=== PATIENT | female | born 1955 | race Caucasian/White ===

== ENCOUNTER 2016-10-27 16:16 | Inpatient (IN) | payer MEDICAID ==
[~2016-10-27] VITALS: Ht 157.5 cm; Wt 83.9 kg
[2016-10-27 17:02] LABS: BASOPHIL % 0.4 % (0-2); PLATELET COUNT 303 x10^3mcL (130-400); RED CELL DISTRIBUTION WIDTH 13.7 % (11.5-14.5)
[2016-10-27 17:10] LABS: CALCIUM 8.4 mg/dL (8.5-10.1); CARBON DIOXIDE 30.3 mmol/L (21-32); CHLORIDE SERUM 98 mmol/L (98-107); CREATININE SERUM 0.8 mg/dL (0.6-1.0); GFR1 > 60 mL/min; GLUCOSE SERUM 257 mg/dL (74-106); POTASSIUM SERUM 3.7 mmol/L (3.5-5.1); SODIUM SERUM 136 mmol/L (136-145)
[2016-10-27 17:15] LABS: ALKALINE PHOSPHATASE 104 U/L (46-116); ALT/SGPT 26 U/L (14-59); AST/SGOT 24 U/L (15-37); BILIRUBIN TOTAL 0.4 mg/dL (0.20-1.00); TOTAL PROTEIN, SERUM 6.9 g/dL (6.4-8.2)
[2016-10-27 17:16] LABS: ALBUMIN 3.1 g/dL (3.4-5.0)
[2016-10-27] MEDS ORDERED: SINGULAIR10 MG PO (17:59)
[2016-10-27] MEDS ORDERED: NEU300 PO (17:59)
[2016-10-27] MEDS ORDERED: ULTRAM50 MG PO (17:59)
[2016-10-27] MEDS ORDERED: DULERA1 AR2 INH (18:00)
[2016-10-27] MEDS ORDERED: LEXAPRO10 MG PO (18:00)
[2016-10-27] MEDS ORDERED: ASPIR 8181 MG PO (18:00)
[2016-10-27] MEDS ORDERED: PROVENTIL0.09 MG/A1 INH (18:00)
[2016-10-27] MEDS ORDERED: PROTONIX40 MG PO (18:00)
[2016-10-27] MEDS ORDERED: HUMALOG100 U/ML SC (18:01)
[2016-10-27] MEDS ORDERED: MULTI-VITAMINS1 TAB PO (18:01)
[2016-10-27] MEDS ORDERED: PRAVACHOL20 MG PO (18:01)
[2016-10-27] MEDS ORDERED: NOR10 PO (18:01)
[2016-10-27] MEDS ORDERED: SPIRIVA18 MC1 INH (18:01)
[2016-10-27] MEDS ORDERED: MIRALAX17 GM/Dose PO (18:02)
[2016-10-27] MEDS ORDERED: LANTUS SOLOS100 U/M1 SQ (18:02)
[2016-10-27] MEDS ORDERED: METFORMIN HCL500 MG PO (18:03)
[2016-10-27 18:28] LABS: CHOLESTEROL/HDL RATIO 4.9
[2016-10-27 18:30] LABS: T3 TOTAL 1.21 ng/mL
[2016-10-27 18:35] LABS: FREE T4 1.16 ng/dL (0.76-1.46); T4(THYROXINE) 8.2 ug/dL (4.7-13.3)
[2016-10-27 18:38] VITALS: BP 141/73
[2016-10-27 19:17] VITALS: BP 134/61
[2016-10-27 21:05] VITALS: BP 132/52
[2016-10-27 22:53] VITALS: BP 142/59
[2016-10-28 05:32] VITALS: BP 122/55
[2016-10-28 06:23] LABS: BASOPHIL % 0.2 % (0-2); PLATELET COUNT 235 x10^3mcL (130-400); RED CELL DISTRIBUTION WIDTH 13.6 % (11.5-14.5)
[2016-10-28 06:35] LABS: CALCIUM 8.2 mg/dL (8.5-10.1); CARBON DIOXIDE 22.1 mmol/L (21-32); CHLORIDE SERUM 105 mmol/L (98-107); CREATININE SERUM 0.7 mg/dL (0.6-1.0); GFR1 > 60 mL/min; GLUCOSE SERUM 244 mg/dL (74-106); MAGNESIUM 2.4 mg/dL (1.8-2.4); PHOSPHOROUS 4.1 mg/dL (2.5-4.9); POTASSIUM SERUM 4.7 mmol/L (3.5-5.1); SODIUM SERUM 140 mmol/L (136-145)
[2016-10-28 08:20] VITALS: BP 122/55
[2016-10-28 14:33] VITALS: BP 133/59
[2016-10-28 17:13] VITALS: BP 132/60
[2016-10-28 17:28] LABS: UA SPECIFIC GRAVITY <=1.005 (1.005-1.035); microscopic required? YES; urine erythrocyte NEGATIVE (NEGATIVE)
[2016-10-28 17:35] LABS: AMPHETAMINE QUAL UR NONE DETECTED (NEG <=1000)
[2016-10-28 20:58] VITALS: BP 109/53
[2016-10-29 05:47] VITALS: BP 126/51
[2016-10-29 06:45] LABS: BASOPHIL % 0.3 % (0-2); PLATELET COUNT 251 x10^3mcL (130-400); RED CELL DISTRIBUTION WIDTH 13.9 % (11.5-14.5)
[2016-10-29 07:13] LABS: CALCIUM 8.2 mg/dL (8.5-10.1); CARBON DIOXIDE 24.8 mmol/L (21-32); CHLORIDE SERUM 105 mmol/L (98-107); CREATININE SERUM 0.9 mg/dL (0.6-1.0); GFR1 > 60 mL/min; GLUCOSE SERUM 256 mg/dL (74-106); PHOSPHOROUS 2.5 mg/dL (2.5-4.9); POTASSIUM SERUM 4.2 mmol/L (3.5-5.1); SODIUM SERUM 140 mmol/L (136-145)
[2016-10-29 09:35] VITALS: BP 108/49
[2016-10-29 10:14] VITALS: Ht 157.5 cm; Wt 83.9 kg
[2016-10-29] MEDS ORDERED: PRAVACHOL20 MG PO (13:03)
[2016-10-29] MEDS ORDERED: LEVAQUIN750 MG PO (13:07)
[2016-10-29 13:14] VITALS: BP 126/45
[2016-10-29] MEDS ORDERED: GLU5 PO (13:16)
[2016-10-29] MEDS ORDERED: METFORMIN HCL1000 MG PO (13:16)
[2016-10-29] MEDS ORDERED: PROTONIX40 MG/Pac1 PO (13:16)
[2016-10-29] MEDS ORDERED: LAC PO (13:17)
[2016-10-29 13:20] VITALS: BP 126/45
[2016-10-29 14:41] VITALS: BP 126/45
[2016-10-29] MEDS ORDERED: PERCOCET1 TA5 PO (15:57)
== END 2016-10-29 16:21 | disposition home or self-care (01) | DRG 133 ==
LOC: ED 16:16 → DU 17:41
PROVIDERS: Emergency Medicine; Family Medicine; ADMIT Family Medicine
DX: J96.01 Acute respiratory failure with hypoxia (principal); E11.51 Type 2 diabetes mellitus with diabetic peripheral angiopathy without gangrene; E44.0 Moderate protein-calorie malnutrition; E11.65 Type 2 diabetes mellitus with hyperglycemia; N39.0 Urinary tract infection, site not specified; J44.1 Chronic obstructive pulmonary disease with (acute) exacerbation; E78.5 Hyperlipidemia, unspecified; D64.9 Anemia, unspecified; I10 Essential (primary) hypertension; M19.90 Unspecified osteoarthritis, unspecified site; Z68.33 Body mass index [BMI] 33.0-33.9, adult; Z86.73 Personal history of transient ischemic attack (TIA), and cerebral infarction without residual deficits; Z87.891 Personal history of nicotine dependence; Z79.82 Long term (current) use of aspirin; Z79.84 Long term (current) use of oral hypoglycemic drugs; Z79.4 Long term (current) use of insulin; Z80.3 Family history of malignant neoplasm of breast
CPT/HCPCS: 36600; 80307; 82962; 83880; 84439; 94150; J1100; J1170; J1200; J1644; J1815; J1885; J1956; J2060; J2270; J2405; J2920; J2930; J7030; J7040; J7620; J7626; J7644; Q0092

== ENCOUNTER 2016-11-26 15:21 | Inpatient (IN) | payer MEDICAID ==
[~2016-11-26] VITALS: Ht 160 cm; Wt 80.9 kg
[~2016-11-26 15:21] MED LIST: ASPIR 8181 MG PO; DULERA1 AR2 INH; GLU5 PO; HUMALOG100 U/ML SC; LAC PO; LANTUS SOLOS100 U/M1 SQ; LEVAQUIN750 MG PO; LEXAPRO10 MG PO; METFORMIN HCL1000 MG PO; METFORMIN HCL500 MG PO; MIRALAX17 GM/Dose PO; MULTI-VITAMINS1 TAB PO; NEU300 PO; NOR10 PO; PERCOCET1 TA5 PO; PRAVACHOL20 MG PO; PROTONIX40 MG PO; PROTONIX40 MG/Pac1 PO; PROVENTIL0.09 MG/A1 INH; SINGULAIR10 MG PO; SPIRIVA18 MC1 INH; ULTRAM50 MG PO
--- NOTE | 2016-11-26 15:33 | NUR ---
61Y/O FEMALE PRESENTS TO THE ED WITH SHORTNESS OF BREATH, COUGH, AND WHEEZING X 3 DAYS. UPPER BACK PAIN IS ALSO REPORTED WHEN COUGHING. 3 HOME BREATHING REATMENTS WERE COMPLETED CHICK GRADER WITH NO IMPROVEMENT. PT APPEARS UNCOMFORTABLE DUE TO DYPNEA AND AUDIBLE WHEEZES ARE NOTED. PRIMARY RN LAYA MADE AWARE. PT PLACED ON CM. PENDING MSE
--- NOTE | 2016-11-26 16:03 | NUR ---
RT AT BEDSIDE
[2016-11-26 16:34] LABS: BASOPHIL % 0.6 % (0-2); PLATELET COUNT 332 x10^3mcL (130-400); RED CELL DISTRIBUTION WIDTH 13.9 % (11.5-14.5)
[2016-11-26 16:43] LABS: CALCIUM 8.5 mg/dL (8.5-10.1); CARBON DIOXIDE 27.7 mmol/L (21-32); CHLORIDE SERUM 102 mmol/L (98-107); CREATININE SERUM 0.8 mg/dL (0.6-1.0); GFR1 > 60 mL/min; GLUCOSE SERUM 211 mg/dL (74-106); POTASSIUM SERUM 3.8 mmol/L (3.5-5.1); SODIUM SERUM 137 mmol/L (136-145)
[2016-11-26 16:48] LABS: ALKALINE PHOSPHATASE 104 U/L (46-116); ALT/SGPT 26 U/L (14-59); AST/SGOT 34 U/L (15-37); BILIRUBIN TOTAL 0.6 mg/dL (0.20-1.00); MAGNESIUM 1.6 mg/dL (1.8-2.4); TOTAL PROTEIN, SERUM 6.8 g/dL (6.4-8.2)
--- NOTE | 2016-11-26 17:07 | NUR ---
PT REPORTS THAT HER SOB IS MUCH BETTER. PT DOES COMPLAINT OF RIGHT LOWER BACK PAIN.
--- NOTE | 2016-11-26 18:18 | NUR ---
REPORT CALLED TO KAILYN MOSS TO ASSUME CARE FOR THIS PT POST TRANSFER FROM ED TO TELE UNIT
[2016-11-26 18:51] LABS: microscopic required? YES; urine erythrocyte NEGATIVE (NEGATIVE)
--- NOTE | 2016-11-26 18:58 | NUR ---
PT REPORTS THAT HE BACK PAIN HAS DECREASED FROM A 7/10 TO A 2/10 ON THE VERBAL NUMERIC PAIN SCALE. PT SHOWS NO OBJECTIVE SIGNS OF DYSPNEA OR PAIN AT THIS TIME.
[2016-11-26 19:19] LABS: FREE THYROXINE INDEX 2.9 ug/dL (1.4-4.5); T4(THYROXINE) 8.3 ug/dL (4.7-13.3)
[2016-11-26 19:24] LABS: FREE T4 0.9 ng/dL (0.76-1.46)
[2016-11-26 19:26] LABS: CHOLESTEROL/HDL RATIO 4.5; PHOSPHOROUS 3.5 mg/dL (2.5-4.9)
[2016-11-26] MEDS ORDERED: PANTOPRAZOLE SO40 M1 PO (19:30)
[2016-11-26 19:33] VITALS: BP 108/54
--- NOTE | 2016-11-26 19:47 | NUR ---
RECEIVED PATIENT FROM ED VIA GUERNEY, PATIENT WITH O2 VIA NASAL CANNULA AT 2L O2 SAT 97%, DAUGHTER AT BEDSIDE, ORIENTED PATIENT TO ROOMA ND SURROUNDINGS, BED IN LOW POSITION, BED RAILS UP X 2, CALL LIGHT WITHIN REACH, WILL ENDORSE CARE TO ADE AVINA
--- NOTE | 2016-11-26 19:55 | NUR ---
RECEIVED PT FROM RAJESH AVINA. PT IS ALERT/ORIENTED X4. NO C/O SOB. LUNGS SOUND CONGESTED THROUGHOUT. PT DAUGHTER IN ROOM. PT C/O BACK PAIN. WILL MEDICATE PER MD PRN ORDER. WILL CONTINUE TO MONITOR.
[2016-11-26 20:16] VITALS: BP 117/50
--- NOTE | 2016-11-26 20:45 | NUR ---
OFFERED PT NORCO FOR THE PAIN. PT REFUSED; STATED "DOES NOT WORK". BP; 108/54, INFORMED PT BP TOO LOW TO ADMINISTER MORPHINE SULFATE. PT STATED SHE WILL WAIT. WILL CONTINUE TO MONITOR.
[2016-11-26 20:53] LABS: T3 TOTAL 1.33 ng/mL
[2016-11-26 21:36] VITALS: BP 117/50
--- NOTE | 2016-11-26 23:21 | NUR ---
INCREASED IVF OF NS TO 90ML/HR
[2016-11-27 00:01] VITALS: Ht 160 cm; Wt 80.9 kg
--- NOTE | 2016-11-27 04:00 | NUR ---
PT SLEEPING, TORADOL NOT ADMINISTERED DUE TO PT SLEEPING. WILL CONTINUE TO MONITOR.
[2016-11-27 06:33] VITALS: BP 128/49
--- NOTE | 2016-11-27 06:35 | NUR ---
PT AWAKE. BREATHING IS EVEN AND UNLABORED. NO C/O SOB. WILL CONTINUE TO MONITOR.
[2016-11-27 06:42] LABS: BASOPHIL % 0.4 % (0-2); PLATELET COUNT 267 x10^3mcL (130-400); RED CELL DISTRIBUTION WIDTH 13.8 % (11.5-14.5)
[2016-11-27 07:08] LABS: CALCIUM 8.5 mg/dL (8.5-10.1); CARBON DIOXIDE 24.8 mmol/L (21-32); CHLORIDE SERUM 99 mmol/L (98-107); CREATININE SERUM 0.8 mg/dL (0.6-1.0); GFR1 > 60 mL/min; GLUCOSE SERUM 321 mg/dL (74-106); MAGNESIUM 1.8 mg/dL (1.8-2.4); PHOSPHOROUS 3.3 mg/dL (2.5-4.9); POTASSIUM SERUM 4.9 mmol/L (3.5-5.1); SODIUM SERUM 133 mmol/L (136-145)
--- NOTE | 2016-11-27 08:00 | NUR ---
RECIEVED RICARDO ALERT AND ORIENTED TIMES FOUR. SPEAKS ONLY S[place] ND IS COMPLAINING OF PAIN. NOTED PATIENT RECEIVED PAIN MEDICATION EARLIER BUT SHE STATES IT IS NOT EFFECTIVE. THE PATIENT SEEMS TO BE LOCATED IN THE LOWER BACK AND CHRONIC. GAVE 6 MG OF MORPHINE AND EFFECTIVE AT THIS TIME. SHE HAS SOME WHEEZING BILATERAL AND ON HHN ORDERD. SHE HAS NOT BEEN COUGHING. ELVI MCCOY NOTED VITALS AT THIS TIME AT 98.0, 80, 19, 93/39, 57, 94% ON 2 LITERS. PATIENT IS USING A WHEELCHAIR AT HOME AND WITH HISTORY OF CHRONIC BACK PAIN. NOTED ALSO DIABETES, OBESITY, HIGH CHOLESTEROL, ARTHRITIS, COPD AND HERNIATED DISC. PATIENT WITH LABS NOTED OF GLUCOSE AT 314 THIS AM AND 12 UUNITS OF REGULAR GIVEN. PATIENT HAS NTOED LABS OF BACTYERIA SAM THE URINE AND NA AT 133, TRIGLYCERIDES AT 202 AND 02 MEASURE AT 89.6. PATIENT TOLERATED DIET AND IS SPAINISH SPEAKING ONLY.
[2016-11-27 09:15] VITALS: BP 93/39
--- NOTE | 2016-11-27 09:45 | NUR ---
SEEN BY THE INTERNS AND DR DWYER AND PLAN OF CARE DISCUSSED.
[2016-11-27 13:20] VITALS: BP 130/52
--- NOTE | 2016-11-27 13:57 | NUR ---
PATIENT BLOOD SUGAR AT 310 AND GAVE 15 UNITS OF REGULAR ORDERED. PATIENT HAS BEEN WITH SOLUMEDROL AND IS GROSSLY OBESE AND POORLY CONTROLED WITH BLOOD SUGAR. SHE DOES NOT HAVE ANY COMPLAINTS OF HYPERGLYCEMIA AND SHE WILL BE CONTINUED MONITORED INDICAE.D SHE DOES THOUGH HAV WHEEZIN AND SOB ON EXERTION.
[2016-11-27 17:25] VITALS: BP 135/36
--- NOTE | 2016-11-27 18:41 | NUR ---
PATIENT COMPLAINED OF PAIN TO THE IV SITE. ON CLOSER EXAM NOTED THE ARM WAS WITH REDNESS AND NO SIGNS OF INFILTRATE. PATIENT STATES HER ARM IS HOT TO THE TOUCH AND NOTED THE OPPOSBING ARE IS WARM TOO. CHECKED HER CHEST AND THE AXILLARY AND NOTED RASH AND REDNESS. ALSO NOTED REDNESS TO THE BILATERAL THIGH AREA. PATIENT IS REQUESTING PAIN MEDICAION AND STATES SHE IS NAUSEATED. RESTARTED IV AND GAVE MORPINE, ZOFRAN AND HASD ALREADY CALLED FOR MEDICAION FOR THE RASH. BENADRYL ORDERED AND WILL GIVE SOON PROCESSED. WILL CONTINUE TO MONITOR. SEEN BY THE ELECTRICAL WIRER AND ANTIBIOTICS DISCONTINUED INDICATED FOR ALLERGIC REATION. WILL CONTINUE TO MONITOR FOR THE EFFECTIVENESS OF THE MEDICATIONS GIVEN HELD THE TORADOL SHE IS WITH TOO MUCH ON BOARD WITH THE MORPHINE, NEURONTIN, ROBAXIN, ZOFRAN AND NOW BENADRYL.
--- NOTE | 2016-11-27 19:30 | NUR ---
PT ALERT/ORIENTED X4. NO C/O PAIN AT THIS TIME. PT DAUGHTER IN ROOM. PT ASSESSED; SEE NSG FLOWSHEET. SAFETY REINFORCED; SEE EDUCAT SHEET. WILL CONTINUE TO MONITOR. GENERALIZED RASH NOTED ON PT BODY.
--- NOTE | 2016-11-27 20:36 | NUR ---
PT DAUGHTER STATES PT TAKES PERCOCET 10-325 MG 1 TAB Q 6 HRS FOR SEVERE PAIN. INFORMED DR CHAVARRIA OF THE ABOVE. DR CHAVARRIA STATED HE WILL ORDER THE PERCOCET
[2016-11-27 21:21] VITALS: BP 98/55
--- NOTE | 2016-11-27 23:30 | NUR ---
PT SLEEPING. NO DISTRESS NOTED. WILL CONTINUE TO MONITOR.
[2016-11-28] VITALS (7 sets, daily range): BP systolic 95–111; BP diastolic 37–45
--- NOTE | 2016-11-28 02:37 | NUR ---
PT SLEEPING. NO DISTRESS NOTED. BREATHING IS EVEN AND UNLABORED. WILL CONTINUE TO MONITOR.
--- NOTE | 2016-11-28 05:00 | NUR ---
PT SLEPT IN LONG INTERVALS THROUGHOUT THE NIGHT. NO DISTRESS NOTED. NO C/O PAIN. WILL CONTINUE TO MONITOR.
--- NOTE | 2016-11-28 06:05 | NUR ---
PT NOW ALLOWING SCD'S TO BE APPLIED TO BLE
--- NOTE | 2016-11-28 07:45 | NUR ---
PATIENT AOX4, DENIES HEADACHE. GENERALIZED WEAKNESS NOTED WITH > TO LEFT SIDE. TELE [address], DENIES CP. LUNGS CONGESTED WITH EXPIRATORY RHONCHI, PATIENT RECEIVED SITTING UP ON EDGE OF BED AND NOW BACK IN BED SUPINE, BREATHING LABORED UPON EXERTION, O2 NC 4L PLACED BACK ON. PERIPHERAL PULSES PALPABLE, EDEMA NOTED TO BLE'S. BOWEL SOUNDS ACTIVE, DENIES N/V, LAST BM THIS MORNING, DENIES GI DISCOMFORT. C/O PAIN TO EPIGASTRIC AREA AND BACK, TOLERABLE AT THIS TIME. MILD GENERALIZED REDNESS/RASH TO BODY, PATIENT STATES RESOLVING FROM REACTION TO IV ABX GIVEN YESTERDAY. IV ACCESS TO RFA RUNNING NS INFUSING WELL SITE WNL. CALL LIGHT WITHIN REACH.
--- NOTE | 2016-11-28 12:10 | NUR ---
PATIENT TEARY AND C/O SEVERE PAIN TO BACK. BP CHECKED AND CHARTED, 95/37. UNABLE TO GIVE MORPHINE 6MG AT THIS TIME. TORADOL IV SCHEDULED DOSE GIVEN. WILL CONT TO MONITOR EFFECTIVENESS.
--- NOTE | 2016-11-28 12:45 | NUR ---
ROCEPHIN IV ABX FIRST DOSE COMPLETE, NO REDNESS/RASHES OR ITCHING NOTED.
--- NOTE | 2016-11-28 19:10 | NUR ---
PATIENT RECEIVED AWAKE, ALERT, AND ORIENTED X 3. NO RESP DISTRESS NOTED. C/O 10/10 BACK PAIN. WILL MEDICATE PER DOCTOR'S PRN ORDER. C/O NAUSEA, WILL MEDICATE PER DOCTOR'S PRN ORDER. IV SITE TO RIGHT FOREARM, PATENT AND INTACT. IV FLUID INFUSING PER DOCTOR'S ORDER. BED IN LOWEST POSITION. CALL LIGHT WITHIN REACH. WILL CONTINUE TO MONITOR.
--- NOTE | 2016-11-29 05:02 | NUR ---
PATIENT RESTED THROUGHOUT THE NIGHT. NO RESP DISTRESS NOTED. MEDICATED FOR BACK PAIN WITH PERCOCET PO X 1 PER DOCTOR'S PRN ORDER. PAIN MANAGED THROUGHOUT THE NIGHT. ALL NEEDS MET. SAFETY AND COMFORT MEASURES MAINTAINED. BED IN LOWEST POSITION. CALL LIGHT WITHIN REACH. WILL CONTINUE TO MONITOR AND ENDORSE TO NEXT SHIFT NURSE.
[2016-11-29 06:22] VITALS: BP 135/64
--- NOTE | 2016-11-29 07:45 | NUR ---
PATIENT AO, DENIES HEADACHE. DENIES CP. LUNGS DIMINISHED BILAT, O2 SAT 96% ON RA, STATES HAVING SMALL PHLEGM FROM OCCASIONAL PRODUCTIVE COUGH, DENIES FEELING SOB, BREATHING EVEN AND UNLABORED. BOWEL SOUNDS ACTIVE, STATES LAST BM THIS MORNING, DENIES N/V. SKIN INTACT. IV ACCESS TO RFA SITE WNL. DENIES FEELING ANY PAIN/DISCOMFORT AT THIS TIME. CALL LIGHT WITHIN REACH.
[2016-11-29 08:28] VITALS: BP 135/86
[2016-11-29 08:50] LABS: CALCIUM 8.4 mg/dL (8.5-10.1); CHLORIDE SERUM 112 mmol/L (98-107); CREATININE SERUM 0.7 mg/dL (0.6-1.0); GFR1 > 60 mL/min; GLUCOSE SERUM 87 mg/dL (74-106); POTASSIUM SERUM 4.1 mmol/L (3.5-5.1); SODIUM SERUM 147 mmol/L (136-145)
[2016-11-29 09:58] VITALS: BP 120/46
[2016-11-29] MEDS ORDERED: LEVAQUIN750 MG PO (11:19)
[2016-11-29] MEDS ORDERED: LAC PO (11:20)
[2016-11-29] MEDS ORDERED: MEDDP PO (11:20)
[2016-11-29] MEDS ORDERED: TRAMADOL HCL50 MG PO (11:21)
[2016-11-29 11:33] VITALS: BP 120/46
[2016-11-29] MEDS ORDERED: PERCOCET1 TAB PO (11:35)
[2016-11-29] MEDS ORDERED: COLACE100 MG PO (11:35)
--- NOTE | 2016-11-29 12:36 | NUR ---
DISCHARGE INSTRUCTIONS AND PRESCRIPTION GIVEN. PATIENT VERBALIZED UNDERSTANDING. IV DC'D CATH INTACT. ALL CONCERNS/QUESTIONS ANSWERED. NO ACUTE DISTRESS NOTED. WAITING FOR RIDE/DAUGHTER TO PAINT SPRAY INSPECTOR. WILL GO DOWN VIA WHEELCHAIR ACCOMPANIED.
== END 2016-11-29 12:50 | disposition home or self-care (01) | DRG 140 ==
LOC: ED 15:21 → DU 17:26 → MU 11-29 07:23
PROVIDERS: Emergency Medicine; Family Medicine; ADMIT Family Medicine
DX: J44.1 Chronic obstructive pulmonary disease with (acute) exacerbation (principal); J96.01 Acute respiratory failure with hypoxia; E44.0 Moderate protein-calorie malnutrition; D68.69 Other thrombophilia; I42.9 Cardiomyopathy, unspecified; E11.51 Type 2 diabetes mellitus with diabetic peripheral angiopathy without gangrene; E87.1 Hypo-osmolality and hyponatremia; E87.8 Other disorders of electrolyte and fluid balance, not elsewhere classified; E83.42 Hypomagnesemia; I10 Essential (primary) hypertension; D16.21 Benign neoplasm of long bones of right lower limb; E11.65 Type 2 diabetes mellitus with hyperglycemia; M47.896 Other spondylosis, lumbar region; M54.42 Lumbago with sciatica, left side; E78.5 Hyperlipidemia, unspecified; Z99.3 Dependence on wheelchair; Z79.4 Long term (current) use of insulin; Z87.891 Personal history of nicotine dependence; Z87.11 Personal history of peptic ulcer disease; Z68.31 Body mass index [BMI] 31.0-31.9, adult; Z86.73 Personal history of transient ischemic attack (TIA), and cerebral infarction without residual deficits
CPT/HCPCS: 36600; 82962; 83880; 84439; C9113; J0696; J1815; J1885; J1956; J2270; J2405; J2920; J2930; J3490; J7030; J7613; J7620; J7644; Q0163

== ENCOUNTER 2016-12-30 12:29 | Emergency (ER) | payer MEDICAID ==
[~2016-12-30] VITALS: Ht 160 cm; Wt 83.9 kg
[~2016-12-30 12:29] MED LIST changes: +COLACE100 MG PO; +MEDDP PO; +PANTOPRAZOLE SO40 M1 PO; +PERCOCET1 TAB PO; +TRAMADOL HCL50 MG PO
[2016-12-30 14:12] LABS: BASOPHIL % 0.6 % (0-2); PLATELET COUNT 296 x10^3mcL (130-400); RED CELL DISTRIBUTION WIDTH 13.9 % (11.5-14.5)
[2016-12-30 14:25] LABS: CALCIUM 9.9 mg/dL (8.5-10.1); CARBON DIOXIDE 30.3 mmol/L (21-32); CHLORIDE SERUM 100 mmol/L (98-107); CREATININE SERUM 0.7 mg/dL (0.6-1.0); GFR1 > 60 mL/min; GLUCOSE SERUM 115 mg/dL (74-106); POTASSIUM SERUM 4.4 mmol/L (3.5-5.1); SODIUM SERUM 137 mmol/L (136-145)
[2016-12-30 14:30] LABS: ALBUMIN 3.6 g/dL (3.4-5.0); ALKALINE PHOSPHATASE 119 U/L (46-116); ALT/SGPT 24 U/L (14-59); AST/SGOT 24 U/L (15-37); BILIRUBIN TOTAL 0.5 mg/dL (0.20-1.00); LIPASE 122 IU/L (73-393); TOTAL PROTEIN, SERUM 7.6 g/dL (6.4-8.2)
[2016-12-30 15:44] VITALS: BP 137/72
== END 2016-12-30 15:45 | disposition home or self-care (01) ==
LOC: ED 12:29
PROVIDERS: Emergency Medicine
DX: R10.13 Epigastric pain (principal); R11.10 Vomiting, unspecified; R19.7 Diarrhea, unspecified; J44.9 Chronic obstructive pulmonary disease, unspecified; I10 Essential (primary) hypertension; E78.5 Hyperlipidemia, unspecified; E11.9 Type 2 diabetes mellitus without complications; M19.90 Unspecified osteoarthritis, unspecified site
CPT/HCPCS: 83880; J2270; J2405; J7030; Q0092

== ENCOUNTER 2017-02-17 20:20 | Inpatient (IN) | payer MEDICAID ==
[~2017-02-17] VITALS: Ht 162.6 cm; Wt 76.0 kg
[2017-02-17 21:13] LABS: BASOPHIL % 0.5 % (0-2); PLATELET COUNT 316 x10^3mcL (130-400); RED CELL DISTRIBUTION WIDTH 13.9 % (11.5-14.5)
[2017-02-17 21:20] LABS: microscopic required? NO
[2017-02-17 21:24] LABS: ALBUMIN 3.3 g/dL (3.4-5.0); ALKALINE PHOSPHATASE 120 U/L (46-116); ALT/SGPT 20 U/L (14-59); AST/SGOT 17 U/L (15-37); BILIRUBIN TOTAL 0.36 mg/dL (0.20-1.00); CARBON DIOXIDE 22.3 mmol/L (21-32); CHLORIDE SERUM 105 mmol/L (98-107); CREATININE SERUM 0.8 mg/dL (0.6-1.0); GFR1 > 60 mL/min; GLUCOSE SERUM 148 mg/dL (74-106); LIPASE 117 IU/L (73-393); POTASSIUM SERUM 3.8 mmol/L (3.5-5.1); SODIUM SERUM 139 mmol/L (136-145); TOTAL PROTEIN, SERUM 7.1 g/dL (6.4-8.2)
[2017-02-17 22:00] LABS: urine erythrocyte NEGATIVE (NEGATIVE)
[2017-02-17 22:19] LABS: AMPHETAMINE QUAL UR NONE DETECTED (NEG <=1000)
[2017-02-17 23:17] LABS: MAGNESIUM 1.9 mg/dL (1.8-2.4); PHOSPHOROUS 4.1 mg/dL (2.5-4.9)
[2017-02-17 23:22] LABS: CHOLESTEROL/HDL RATIO 5.2
[2017-02-17 23:25] LABS: T3 TOTAL 0.8 ng/mL
[2017-02-17 23:38] LABS: FREE T4 0.94 ng/dL (0.76-1.46); FREE THYROXINE INDEX 2.5 ug/dL (1.4-4.5); T4(THYROXINE) 7.5 ug/dL (4.7-13.3)
[2017-02-18] VITALS (8 sets, daily range): BP systolic 117–136; BP diastolic 45–73
[2017-02-18 05:44] LABS: BASOPHIL % 0.5 % (0-2); PLATELET COUNT 274 x10^3mcL (130-400); RED CELL DISTRIBUTION WIDTH 14.1 % (11.5-14.5)
[2017-02-18 05:53] LABS: CALCIUM 9.1 mg/dL (8.5-10.1); CARBON DIOXIDE 28.3 mmol/L (21-32); CHLORIDE SERUM 106 mmol/L (98-107); CREATININE SERUM 0.8 mg/dL (0.6-1.0); GFR1 > 60 mL/min; GLUCOSE SERUM 197 mg/dL (74-106); POTASSIUM SERUM 4.8 mmol/L (3.5-5.1); SODIUM SERUM 141 mmol/L (136-145)
[2017-02-19 06:04] VITALS: BP 151/59
[2017-02-19 06:36] LABS: BASOPHIL % 0.6 % (0-2); PLATELET COUNT 304 x10^3mcL (130-400); RED CELL DISTRIBUTION WIDTH 14.1 % (11.5-14.5)
[2017-02-19 07:56] LABS: CALCIUM 8.6 mg/dL (8.5-10.1); CARBON DIOXIDE 27.9 mmol/L (21-32); CHLORIDE SERUM 106 mmol/L (98-107); CREATININE SERUM 0.7 mg/dL (0.6-1.0); GFR1 > 60 mL/min; GLUCOSE SERUM 99 mg/dL (74-106); MAGNESIUM 1.6 mg/dL (1.8-2.4); PHOSPHOROUS 3.5 mg/dL (2.5-4.9); POTASSIUM SERUM 3.9 mmol/L (3.5-5.1); SODIUM SERUM 138 mmol/L (136-145)
[2017-02-19 10:00] VITALS: BP 117/51
[2017-02-19 13:43] VITALS: BP 123/53
[2017-02-19 18:23] VITALS: BP 120/50
[2017-02-19 23:10] VITALS: BP 122/50
[2017-02-20 05:33] VITALS: BP 104/60
[2017-02-20 06:35] LABS: BASOPHIL % 0.5 % (0-2); PLATELET COUNT 275 x10^3mcL (130-400); RED CELL DISTRIBUTION WIDTH 13.8 % (11.5-14.5)
[2017-02-20 07:18] LABS: CALCIUM 8.2 mg/dL (8.5-10.1); CARBON DIOXIDE 28.6 mmol/L (21-32); CHLORIDE SERUM 106 mmol/L (98-107); CREATININE SERUM 0.7 mg/dL (0.6-1.0); GFR1 > 60 mL/min; GLUCOSE SERUM 103 mg/dL (74-106); PHOSPHOROUS 3.1 mg/dL (2.5-4.9); SODIUM SERUM 142 mmol/L (136-145)
[2017-02-20 08:04] VITALS: BP 106/53
[2017-02-20 09:38] VITALS: BP 106/53
[2017-02-20 13:29] VITALS: BP 120/49
[2017-02-20 13:53] VITALS: BP 120/49
[2017-02-20] MEDS ORDERED: BG FS (14:19)
[2017-02-20] MEDS ORDERED: PER5 PO (14:21)
[2017-02-20] MEDS ORDERED: ZOVIRAX400 MG PO (14:21)
[2017-02-20] MEDS ORDERED: PROVENTIL0.09 MG/A1 INH (14:21)
[2017-02-20] MEDS ORDERED: MEDROL32 MG PO (14:35)
[2017-02-20] MEDS ORDERED: MEDDP PO (20:55)
== END 2017-02-20 17:30 | disposition home or self-care (01) | DRG 50 ==
LOC: ED 20:20 → DU 22:31 → IC 22:31 → DU 02-19 01:41
PROVIDERS: Emergency Medicine; ADMIT Family Medicine
DX: B02.21 Postherpetic geniculate ganglionitis (principal); D68.69 Other thrombophilia; E11.51 Type 2 diabetes mellitus with diabetic peripheral angiopathy without gangrene; E11.59 Type 2 diabetes mellitus with other circulatory complications; E11.65 Type 2 diabetes mellitus with hyperglycemia; E44.1 Mild protein-calorie malnutrition; I16.0 Hypertensive urgency; J44.9 Chronic obstructive pulmonary disease, unspecified; E78.5 Hyperlipidemia, unspecified; M54.40 Lumbago with sciatica, unspecified side; I69.354 Hemiplegia and hemiparesis following cerebral infarction affecting left non-dominant side; Z79.84 Long term (current) use of oral hypoglycemic drugs; Z79.4 Long term (current) use of insulin; Z79.82 Long term (current) use of aspirin; Z68.32 Body mass index [BMI] 32.0-32.9, adult
CPT/HCPCS: 83880; 84439; 97110-GP; 97116-GP; 97530-GP; G0480; J0133; J0696; J1170; J1815; J2270; J2920; J3010; J3475; J7030; J7512; J7613; J7620; Q0092

== ENCOUNTER 2017-02-24 00:54 | Emergency (ER) | payer MEDICAID ==
[~2017-02-24 00:54] MED LIST changes: +BG FS; +MEDROL32 MG PO; +PER5 PO; +ZOVIRAX400 MG PO
[2017-02-24 01:52] LABS: CHOLESTEROL/HDL RATIO 2.6
[2017-02-24 02:15] LABS: T3 TOTAL 0.69 ng/mL
[2017-02-24 02:30] LABS: FREE T4 0.91 ng/dL (0.76-1.46); FREE THYROXINE INDEX 2.6 ug/dL (1.4-4.5); T4(THYROXINE) 7.7 ug/dL (4.7-13.3)
[2017-02-24 03:11] LABS: CALCIUM 9.4 mg/dL (8.5-10.1); CARBON DIOXIDE 33.4 mmol/L (21-32); CHLORIDE SERUM 101 mmol/L (98-107); CREATININE SERUM 0.8 mg/dL (0.6-1.0); GFR1 > 60 mL/min; GLUCOSE SERUM 130 mg/dL (74-106); SODIUM SERUM 142 mmol/L (136-145)
[2017-02-24 03:12] LABS: BASOPHIL % 0.4 % (0-2); PLATELET COUNT 372 x10^3mcL (130-400); RED CELL DISTRIBUTION WIDTH 14.2 % (11.5-14.5)
[2017-02-24 03:17] LABS: ALBUMIN 3.4 g/dL (3.4-5.0); ALKALINE PHOSPHATASE 129 U/L (46-116); ALT/SGPT 36 U/L (14-59); AST/SGOT 25 U/L (15-37); BILIRUBIN TOTAL 0.4 mg/dL (0.20-1.00); LIPASE 128 IU/L (73-393); TOTAL PROTEIN, SERUM 7.2 g/dL (6.4-8.2)
[2017-02-24 03:17] LABS: microscopic required? NO
[2017-02-24 03:35] LABS: urine erythrocyte NEGATIVE (NEGATIVE)
[2017-02-24 05:57] VITALS: BP 148/80
== END 2017-02-24 05:57 | disposition home or self-care (01) ==
LOC: ED 00:54
PROVIDERS: Specialist
DX: R10.13 Epigastric pain (principal); K59.00 Constipation, unspecified; D72.829 Elevated white blood cell count, unspecified; J44.9 Chronic obstructive pulmonary disease, unspecified; I10 Essential (primary) hypertension; E11.9 Type 2 diabetes mellitus without complications; M06.9 Rheumatoid arthritis, unspecified; E78.00 Pure hypercholesterolemia, unspecified; Z86.73 Personal history of transient ischemic attack (TIA), and cerebral infarction without residual deficits; Z90.49 Acquired absence of other specified parts of digestive tract
CPT/HCPCS: 83880; 84439; J2405; J3010; J3490; J7030; Q0092

== ENCOUNTER 2017-10-23 13:58 | Inpatient (IN) | payer MEDICAID ==
[~2017-10-23] VITALS: Ht 162.6 cm; Wt 70.0 kg
[2017-10-23 14:34] VITALS: Ht 162.6 cm; Wt 70.0 kg
[2017-10-23 15:46] LABS: BASOPHIL % 0.7 % (0-2)
[2017-10-23 16:04] LABS: PLATELET COUNT 525 x10^3mcL (130-400)
[2017-10-23 16:05] LABS: ALBUMIN 3.4 g/dL (3.4-5.0); BILIRUBIN TOTAL 0.3 mg/dL (0.20-1.00); CALCIUM 8.9 mg/dL (8.5-10.1); CARBON DIOXIDE 18.1 mmol/L (21-32); POTASSIUM SERUM 3.1 mmol/L (3.5-5.1)
[2017-10-23 16:06] LABS: TOTAL PROTEIN, SERUM 8.4 g/dL (6.4-8.2)
[2017-10-23 16:09] LABS: rbc morphology (normal/abnorm) ABNORMAL (NORMAL)
[2017-10-23 16:30] LABS: microscopic required? YES; urine erythrocyte NEGATIVE (NEGATIVE)
[2017-10-23] MEDS ORDERED: DIPHENOX/ATROPI1 TA1 PO (19:01)
[2017-10-23] MEDS ORDERED: ASPIRIN81 MG PO (19:01)
[2017-10-23] MEDS ORDERED: NEU300 PO (19:01)
[2017-10-23] MEDS ORDERED: TRAZODONE50 M1 PO (19:02)
[2017-10-23] MEDS ORDERED: MAGNESIUM OXID400 MG PO (19:02)
[2017-10-23] MEDS ORDERED: ESCITALOPRAM OX10 MG PO (19:02)
[2017-10-23] MEDS ORDERED: PLA75 PO (19:03)
[2017-10-23 19:44] VITALS: BP 119/44
[2017-10-23 21:02] LABS: MAGNESIUM 2.2 mg/dL (1.8-2.4); PHOSPHOROUS 4.3 mg/dL (2.5-4.9)
[2017-10-23 21:04] LABS: CHOLESTEROL/HDL RATIO 4.7
[2017-10-23 21:08] LABS: T3 TOTAL 0.84 ng/mL
[2017-10-23 21:44] LABS: FREE T4 1.23 ng/dL (0.76-1.46); FREE THYROXINE INDEX 3.5 ug/dL (1.4-4.5); T4(THYROXINE) 9.8 ug/dL (4.7-13.3)
[2017-10-24 05:58] VITALS: BP 100/67
[2017-10-24 07:12] LABS: BASOPHIL % 1.3 % (0-2); PLATELET COUNT 366 x10^3mcL (130-400)
[2017-10-24 07:16] LABS: CALCIUM 8.3 mg/dL (8.5-10.1); CARBON DIOXIDE 18.6 mmol/L (21-32); CREATININE SERUM 1.2 mg/dL (0.6-1.0); MAGNESIUM 2.1 mg/dL (1.8-2.4); PHOSPHOROUS 3.2 mg/dL (2.5-4.9); POTASSIUM SERUM 3.6 mmol/L (3.5-5.1)
[2017-10-24 07:26] LABS: RED CELL DISTRIBUTION WIDTH 20.8 % (11.5-14.5)
[2017-10-24 09:21] VITALS: BP 99/52
[2017-10-24 13:53] VITALS: BP 98/39
[2017-10-24 17:24] VITALS: BP 102/38
[2017-10-24 19:15] VITALS: BP 115/40
[2017-10-25 05:43] VITALS: BP 103/42
[2017-10-25 06:38] LABS: CALCIUM 8.4 mg/dL (8.5-10.1); CARBON DIOXIDE 21.8 mmol/L (21-32); CHLORIDE SERUM 107 mmol/L (98-107); CREATININE SERUM 0.9 mg/dL (0.6-1.0); GFR1 > 60 mL/min; GLUCOSE SERUM 141 mg/dL (74-106); MAGNESIUM 1.9 mg/dL (1.8-2.4); PHOSPHOROUS 2.9 mg/dL (2.5-4.9); SODIUM SERUM 135 mmol/L (136-145)
[2017-10-25 09:22] LABS: BASOPHIL % 1.1 % (0-2); PLATELET COUNT 353 x10^3mcL (130-400)
[2017-10-25 10:02] VITALS: BP 109/46
[2017-10-25 11:55] LABS: rbc morphology (normal/abnorm) ABNORMAL (NORMAL)
[2017-10-25 17:50] VITALS: BP 108/41
[2017-10-25 21:44] VITALS: BP 103/45
[2017-10-26 05:35] VITALS: BP 103/45
[2017-10-26 06:26] LABS: PLATELET COUNT 360 x10^3mcL (130-400)
[2017-10-26 06:48] LABS: CALCIUM 8.6 mg/dL (8.5-10.1); CARBON DIOXIDE 23.9 mmol/L (21-32); CHLORIDE SERUM 106 mmol/L (98-107); CREATININE SERUM 0.7 mg/dL (0.6-1.0); GFR1 > 60 mL/min; GLUCOSE SERUM 115 mg/dL (74-106); MAGNESIUM 1.9 mg/dL (1.8-2.4); PHOSPHOROUS 2.9 mg/dL (2.5-4.9); RED CELL DISTRIBUTION WIDTH 22.3 % (11.5-14.5); SODIUM SERUM 139 mmol/L (136-145)
[2017-10-26 08:12] LABS: rbc morphology (normal/abnorm) ABNORMAL (NORMAL); target cell (codocyte) 1+
[2017-10-26 09:05] VITALS: BP 114/48
[2017-10-26 13:21] VITALS: BP 100/47
[2017-10-26 17:18] VITALS: BP 97/44
[2017-10-26 21:16] VITALS: BP 110/45
[2017-10-27 05:24] VITALS: BP 102/63
[2017-10-27 06:26] LABS: BASOPHIL % 0.7 % (0-2); PLATELET COUNT 344 x10^3mcL (130-400)
[2017-10-27 06:39] LABS: CALCIUM 8.7 mg/dL (8.5-10.1); CARBON DIOXIDE 25.9 mmol/L (21-32); CHLORIDE SERUM 105 mmol/L (98-107); CREATININE SERUM 0.7 mg/dL (0.6-1.0); GFR1 > 60 mL/min; GLUCOSE SERUM 106 mg/dL (74-106); MAGNESIUM 1.7 mg/dL (1.8-2.4); PHOSPHOROUS 3.3 mg/dL (2.5-4.9); POTASSIUM SERUM 3.8 mmol/L (3.5-5.1); SODIUM SERUM 138 mmol/L (136-145)
[2017-10-27 06:49] LABS: RED CELL DISTRIBUTION WIDTH 22.7 % (11.5-14.5)
[2017-10-27 06:50] LABS: rbc morphology (normal/abnorm) ABNORMAL (NORMAL); target cell (codocyte) 1+
[2017-10-27 09:41] VITALS: BP 101/46
[2017-10-27 16:18] VITALS: BP 107/44
[2017-10-27 20:37] VITALS: BP 119/50
[2017-10-28 05:27] VITALS: BP 112/82
[2017-10-28 06:46] LABS: BASOPHIL % 0.8 % (0-2); PLATELET COUNT 342 x10^3mcL (130-400)
[2017-10-28 07:02] LABS: CALCIUM 8.7 mg/dL (8.5-10.1); CARBON DIOXIDE 23.8 mmol/L (21-32); CHLORIDE SERUM 103 mmol/L (98-107); CREATININE SERUM 0.6 mg/dL (0.6-1.0); GFR1 > 60 mL/min; GLUCOSE SERUM 109 mg/dL (74-106); MAGNESIUM 1.6 mg/dL (1.8-2.4); PHOSPHOROUS 3.7 mg/dL (2.5-4.9); POTASSIUM SERUM 3.4 mmol/L (3.5-5.1); SODIUM SERUM 136 mmol/L (136-145)
[2017-10-28 07:05] LABS: RED CELL DISTRIBUTION WIDTH 21.9 % (11.5-14.5); rbc morphology (normal/abnorm) ABNORMAL (NORMAL)
[2017-10-28 08:57] VITALS: BP 93/55
[2017-10-28 17:31] VITALS: BP 103/43
[2017-10-28] MEDS ORDERED: METOCLOPRAMIDE10 M2 PO (19:13)
[2017-10-28] MEDS ORDERED: ELA25 PO (19:14)
[2017-10-28 19:16] VITALS: BP 103/43
== END 2017-10-28 22:10 | disposition home or self-care (01) | DRG 710 ==
LOC: ED 13:58 → DU 17:58 → MU 17:58 → DU 19:32 → MU 10-25 08:19
PROVIDERS: Emergency Medicine; Family Medicine; Internal Medicine Gastroenterology
PROC: 0D968ZZ Drainage of Stomach, Via Natural or Artificial Opening Endoscopic (ICD-10-PCS; principal; 2017-10-25 08:00)
PROC: 0DJD8ZZ Inspection of Lower Intestinal Tract, Via Natural or Artificial Opening Endoscopic (ICD-10-PCS; 2017-10-27)
DX: A41.9 Sepsis, unspecified organism (principal); N17.0 Acute kidney failure with tubular necrosis; K55.1 Chronic vascular disorders of intestine; K31.84 Gastroparesis; E87.1 Hypo-osmolality and hyponatremia; E87.8 Other disorders of electrolyte and fluid balance, not elsewhere classified; E11.43 Type 2 diabetes mellitus with diabetic autonomic (poly)neuropathy; I10 Essential (primary) hypertension; D47.3 Essential (hemorrhagic) thrombocythemia; E87.6 Hypokalemia; J44.9 Chronic obstructive pulmonary disease, unspecified; E78.5 Hyperlipidemia, unspecified; E86.0 Dehydration; D50.9 Iron deficiency anemia, unspecified; M54.9 Dorsalgia, unspecified; E83.42 Hypomagnesemia; N39.0 Urinary tract infection, site not specified; Z79.82 Long term (current) use of aspirin; Z80.3 Family history of malignant neoplasm of breast; Z80.0 Family history of malignant neoplasm of digestive organs; Z86.73 Personal history of transient ischemic attack (TIA), and cerebral infarction without residual deficits; Z82.49 Family history of ischemic heart disease and other diseases of the circulatory system; Z87.891 Personal history of nicotine dependence
CPT/HCPCS: 43235; 45378; 83880; 84439; C9113; J1200; J1610; J2060; J2250; J2270; J2310; J2354; J2405; J2543; J3010; J3475; J3480; J3490; J7030; J7040; J7131; J8597; Q0092; Q0162; Q9967

== ENCOUNTER 2018-01-22 10:20 | Emergency (ER) | payer MEDICAID ==
[~2018-01-22] VITALS: Ht 162.6 cm; Wt 90.7 kg
[~2018-01-22 10:20] MED LIST changes: +ASPIRIN81 MG PO; +DIPHENOX/ATROPI1 TA1 PO; +ELA25 PO; +ESCITALOPRAM OX10 MG PO; +MAGNESIUM OXID400 MG PO; +METOCLOPRAMIDE10 M2 PO; +PLA75 PO; +TRAZODONE50 M1 PO
[2018-01-22 10:25] VITALS: Ht 162.6 cm; Wt 90.7 kg
[2018-01-22 11:08] LABS: BASOPHIL % 0.6 % (0-2); PLATELET COUNT 395 x10^3mcL (130-400)
[2018-01-22 11:10] LABS: RED CELL DISTRIBUTION WIDTH 17.5 % (11.5-14.5)
[2018-01-22 11:39] LABS: CALCIUM 8.6 mg/dL (8.5-10.1); CARBON DIOXIDE 24.8 mmol/L (21-32); CHLORIDE SERUM 100 mmol/L (98-107); CREATININE SERUM 0.8 mg/dL (0.6-1.0); GLUCOSE SERUM 200 mg/dL (74-106); POTASSIUM SERUM 4.6 mmol/L (3.5-5.1); SODIUM SERUM 133 mmol/L (136-145)
[2018-01-22 11:53] LABS: ALKALINE PHOSPHATASE 151 U/L (46-116); ALT/SGPT 15 U/L (14-59); AMYLASE 50 U/L (25-115); AST/SGOT 22 U/L (15-37); BILIRUBIN TOTAL 0.32 mg/dL (0.20-1.00); HDL CHOLESTEROL 41 mg/dL (40-60); LIPASE 160 IU/L (73-393); T4(THYROXINE) 8.7 ug/dL (4.7-13.3); TOTAL PROTEIN, SERUM 7.6 g/dL (6.4-8.2)
[2018-01-22 11:58] LABS: CHOLESTEROL 118 mg/dL (<200)
[2018-01-22 12:30] LABS: UA SPECIFIC GRAVITY <=1.005 (1.005-1.035); microscopic required? YES; urine erythrocyte NEGATIVE (NEGATIVE)
[2018-01-22 12:55] LABS: AMPHETAMINE QUAL UR NONE DETECTED (See below)
[2018-01-22 15:01] VITALS: BP 108/50
== END 2018-01-22 15:01 | disposition home or self-care (01) ==
LOC: ED 10:20
PROVIDERS: Emergency Medicine
DX: J44.1 Chronic obstructive pulmonary disease with (acute) exacerbation (principal); N39.0 Urinary tract infection, site not specified; R74.0 Nonspecific elevation of levels of transaminase and lactic acid dehydrogenase [LDH]; L89.159 Pressure ulcer of sacral region, unspecified stage; E46 Unspecified protein-calorie malnutrition; E11.9 Type 2 diabetes mellitus without complications; I10 Essential (primary) hypertension; E78.00 Pure hypercholesterolemia, unspecified; Z90.49 Acquired absence of other specified parts of digestive tract; Z43.1 Encounter for attention to gastrostomy
CPT/HCPCS: 36600; 83880; 99406; J1956; J2930; J7030; J7613; J7644; Q0092

== ENCOUNTER 2018-01-29 19:12 | Inpatient (IN) | payer MEDICAID ==
[~2018-01-29] VITALS: Ht 152.4 cm; Wt 68.0 kg
[2018-01-29 19:18] VITALS: Ht 152.4 cm; Wt 68.0 kg
[2018-01-29 20:12] LABS: BASOPHIL % 0.7 % (0-2)
[2018-01-29 20:14] LABS: PLATELET COUNT 465 x10^3mcL (130-400); RED CELL DISTRIBUTION WIDTH 17.5 % (11.5-14.5)
[2018-01-29 20:23] LABS: CALCIUM 9.3 mg/dL (8.5-10.1); CARBON DIOXIDE 26.5 mmol/L (21-32); CHLORIDE SERUM 98 mmol/L (98-107); CREATININE SERUM 0.9 mg/dL (0.6-1.0); GFR1 > 60 mL/min; GLUCOSE SERUM 157 mg/dL (74-106); POTASSIUM SERUM 4.6 mmol/L (3.5-5.1); SODIUM SERUM 135 mmol/L (136-145)
[2018-01-29 20:32] LABS: ALBUMIN 3.4 g/dL (3.4-5.0); ALKALINE PHOSPHATASE 171 U/L (46-116); ALT/SGPT 27 U/L (14-59); AST/SGOT 40 U/L (15-37); BILIRUBIN TOTAL 0.39 mg/dL (0.20-1.00)
[2018-01-29 20:33] LABS: TOTAL PROTEIN, SERUM 8.3 g/dL (6.4-8.2)
[2018-01-29 20:37] LABS: CK-MB 3.2 ng/mL (0-3.6)
[2018-01-29 22:03] LABS: CHOLESTEROL/HDL RATIO 3.7; MAGNESIUM 1.7 mg/dL (1.8-2.4); PHOSPHOROUS 2.9 mg/dL (2.5-4.9)
[2018-01-29 22:10] LABS: FREE T4 1.27 ng/dL (0.76-1.46); FREE THYROXINE INDEX 3.2 ug/dL (1.4-4.5); T3 TOTAL 1.11 ng/mL; T4(THYROXINE) 9.5 ug/dL (4.7-13.3)
[2018-01-29 22:39] VITALS: BP 137/74
[2018-01-30 05:05] VITALS: BP 112/54
[2018-01-30 07:21] LABS: CALCIUM 9.1 mg/dL (8.5-10.1); CARBON DIOXIDE 27.9 mmol/L (21-32); POTASSIUM SERUM 5.3 mmol/L (3.5-5.1)
[2018-01-30 07:52] LABS: BASOPHIL % 0 % (0-2); PLATELET COUNT 407 x10^3mcL (130-400); RED CELL DISTRIBUTION WIDTH 17.6 % (11.5-14.5)
[2018-01-30 08:52] VITALS: BP 113/51
[2018-01-30 13:36] VITALS: BP 93/61
[2018-01-30 15:40] LABS: microscopic required? NO; urine erythrocyte NEGATIVE (NEGATIVE)
[2018-01-30 15:47] LABS: AMPHETAMINE QUAL UR NONE DETECTED (See below)
[2018-01-30 17:29] VITALS: BP 163/46
[2018-01-30 20:25] LABS: CALCIUM 8.6 mg/dL (8.5-10.1); CARBON DIOXIDE 27.7 mmol/L (21-32); CREATININE SERUM 1.1 mg/dL (0.6-1.0); POTASSIUM SERUM 4.5 mmol/L (3.5-5.1)
[2018-01-30 20:46] VITALS: BP 110/39
[2018-01-31 06:05] VITALS: BP 95/52
[2018-01-31 06:37] LABS: CALCIUM 8.7 mg/dL (8.5-10.1); CARBON DIOXIDE 25.4 mmol/L (21-32); CREATININE SERUM 1.1 mg/dL (0.6-1.0); MAGNESIUM 2.3 mg/dL (1.8-2.4); POTASSIUM SERUM 4.6 mmol/L (3.5-5.1)
[2018-01-31 06:45] LABS: BASOPHIL % 0.1 % (0-2); PLATELET COUNT 392 x10^3mcL (130-400)
[2018-01-31 06:47] LABS: rbc morphology (normal/abnorm) ABNORMAL (NORMAL)
[2018-01-31 08:55] VITALS: BP 103/48
[2018-01-31 13:14] VITALS: BP 100/52
[2018-01-31 16:33] VITALS: BP 109/43
[2018-01-31] MEDS ORDERED: LIPI20 PO (17:17)
[2018-01-31] MEDS ORDERED: REG10 PO (17:21)
[2018-01-31] MEDS ORDERED: ZITHROMAX250 MG PO (17:22)
[2018-01-31] MEDS ORDERED: PREDNISONE50 MG PO (17:23)
[2018-01-31] MEDS ORDERED: ADV250/50 INH (17:29)
== END 2018-01-31 19:44 | disposition home or self-care (01) | DRG 133 ==
LOC: ED 19:12 → DU 21:42
PROVIDERS: Internal Medicine; Specialist
DX: J96.00 Acute respiratory failure, unspecified whether with hypoxia or hypercapnia (principal); E11.51 Type 2 diabetes mellitus with diabetic peripheral angiopathy without gangrene; K31.84 Gastroparesis; J44.1 Chronic obstructive pulmonary disease with (acute) exacerbation; E11.40 Type 2 diabetes mellitus with diabetic neuropathy, unspecified; E11.65 Type 2 diabetes mellitus with hyperglycemia; E11.43 Type 2 diabetes mellitus with diabetic autonomic (poly)neuropathy; F32.9 Major depressive disorder, single episode, unspecified; I10 Essential (primary) hypertension; E78.5 Hyperlipidemia, unspecified; Z86.73 Personal history of transient ischemic attack (TIA), and cerebral infarction without residual deficits; Z79.82 Long term (current) use of aspirin; Z87.891 Personal history of nicotine dependence; Z68.26 Body mass index [BMI] 26.0-26.9, adult
CPT/HCPCS: 36600; 83880; 84439; 94150; J1644; J2060; J2270; J2543; J2920; J2930; J3475; J3490; J7030; J7620; J7626; J8597; Q0092

== ENCOUNTER 2018-03-07 19:41 | Inpatient (IN) | payer MEDICAID ==
[~2018-03-07] VITALS: Ht 160 cm; Wt 66.5 kg
[~2018-03-07 19:41] MED LIST changes: +ADV250/50 INH; +LIPI20 PO; +PREDNISONE50 MG PO; +REG10 PO; +ZITHROMAX250 MG PO
[2018-03-07 19:43] VITALS: Ht 160 cm; Wt 66.5 kg
[2018-03-07 20:27] LABS: PLATELET COUNT 348 x10^3mcL (130-400)
[2018-03-07 20:30] LABS: RED CELL DISTRIBUTION WIDTH 19.7 % (11.5-14.5)
[2018-03-07 20:44] LABS: CARBON DIOXIDE 26.3 mmol/L (21-32); CHLORIDE SERUM 104 mmol/L (98-107); CREATININE SERUM 0.9 mg/dL (0.6-1.0); GFR1 > 60 mL/min; GLUCOSE SERUM 99 mg/dL (74-106); POTASSIUM SERUM 4.5 mmol/L (3.5-5.1); SODIUM SERUM 134 mmol/L (136-145)
[2018-03-07 20:49] LABS: ALBUMIN 3.4 g/dL (3.4-5.0); ALKALINE PHOSPHATASE 168 U/L (46-116); ALT/SGPT 33 U/L (14-59); AST/SGOT 31 U/L (15-37); BILIRUBIN TOTAL 0.28 mg/dL (0.20-1.00); TOTAL PROTEIN, SERUM 7.5 g/dL (6.4-8.2)
[2018-03-07 23:38] LABS: MAGNESIUM 2.5 mg/dL (1.8-2.4); PHOSPHOROUS 4.1 mg/dL (2.5-4.9)
[2018-03-07 23:42] LABS: CHOLESTEROL/HDL RATIO 4.7
[2018-03-07 23:43] LABS: T3 TOTAL 1.07 ng/mL
[2018-03-08 00:32] LABS: FREE T4 1.17 ng/dL (0.76-1.46); FREE THYROXINE INDEX 2.5 ug/dL (1.4-4.5); T4(THYROXINE) 7.9 ug/dL (4.7-13.3)
[2018-03-08] MEDS ORDERED: PRAVACHOL20 MG PO (00:34)
[2018-03-08] MEDS ORDERED: AMLODIPINE BES2.5 M1 PO (00:34)
[2018-03-08] MEDS ORDERED: ZOF4 PO (00:35)
[2018-03-08] MEDS ORDERED: LOMOTIL1 TAB PO (00:37)
[2018-03-08 00:48] VITALS: BP 108/44
[2018-03-08] MEDS ORDERED: METFORMIN HCL1000 MG PO (00:59)
[2018-03-08] MEDS ORDERED: NOR10T PO (00:59)
[2018-03-08] MEDS ORDERED: MONTELUKAST SOD10 M1 PO (00:59)
[2018-03-08] MEDS ORDERED: ARTIFICIAL TEAR15 M1 (01:00)
[2018-03-08] MEDS ORDERED: ONE DAILY FOR1 EACH PO (01:01)
[2018-03-08] MEDS ORDERED: POTASSIUM CHLO10 MEQ PO (01:02)
[2018-03-08] MEDS ORDERED: MAGNESIUM OXID400 MG PO (01:03)
[2018-03-08 05:19] VITALS: BP 96/52
[2018-03-08 07:27] LABS: BASOPHIL % 0.2 % (0-2); PLATELET COUNT 307 x10^3mcL (130-400)
[2018-03-08 07:29] LABS: RED CELL DISTRIBUTION WIDTH 19.1 % (11.5-14.5)
[2018-03-08 07:43] LABS: TOTAL IRON BINDING CAPACITY 434 ug/dL (250-450)
[2018-03-08 07:48] LABS: RED BLOOD CELLS 3.98 M/mm3 (4.10-5.10)
[2018-03-08 07:49] LABS: CALCIUM 8.5 mg/dL (8.5-10.1); CARBON DIOXIDE 19.7 mmol/L (21-32); CHLORIDE SERUM 105 mmol/L (98-107); CREATININE SERUM 0.8 mg/dL (0.6-1.0); GFR1 > 60 mL/min; GLUCOSE SERUM 220 mg/dL (74-106); MAGNESIUM 2.1 mg/dL (1.8-2.4); PHOSPHOROUS 4.4 mg/dL (2.5-4.9); POTASSIUM SERUM 5.1 mmol/L (3.5-5.1); SODIUM SERUM 135 mmol/L (136-145)
[2018-03-08 07:56] LABS: IRON 15 ug/dL (50-170)
[2018-03-08 08:31] VITALS: BP 95/55
[2018-03-08 11:20] LABS: microscopic required? NO
[2018-03-08 11:28] LABS: urine erythrocyte NEGATIVE (NEGATIVE)
[2018-03-08 11:36] LABS: AMPHETAMINE QUAL UR NONE DETECTED (See below)
[2018-03-08 17:53] VITALS: BP 114/55
[2018-03-08 21:20] VITALS: BP 108/45
[2018-03-09 05:30] VITALS: BP 119/55
[2018-03-09 06:19] LABS: BASOPHIL % 0.1 % (0-2); PLATELET COUNT 298 x10^3mcL (130-400)
[2018-03-09 06:35] LABS: CALCIUM 8.3 mg/dL (8.5-10.1); CARBON DIOXIDE 25.1 mmol/L (21-32); CHLORIDE SERUM 110 mmol/L (98-107); CREATININE SERUM 0.8 mg/dL (0.6-1.0); GFR1 > 60 mL/min; GLUCOSE SERUM 186 mg/dL (74-106); POTASSIUM SERUM 4.6 mmol/L (3.5-5.1); SODIUM SERUM 142 mmol/L (136-145)
[2018-03-09 06:42] LABS: RED CELL DISTRIBUTION WIDTH 19.8 % (11.5-14.5)
[2018-03-09 06:43] LABS: rbc morphology (normal/abnorm) ABNORMAL (NORMAL)
[2018-03-09 08:13] VITALS: BP 88/35
[2018-03-09 16:53] VITALS: BP 118/60
[2018-03-09 20:19] VITALS: BP 116/48
[2018-03-10 05:34] VITALS: BP 111/46
[2018-03-10 06:05] LABS: BASOPHIL % 1.3 % (0-2); PLATELET COUNT 277 x10^3mcL (130-400)
[2018-03-10 06:23] LABS: CALCIUM 8.2 mg/dL (8.5-10.1); CARBON DIOXIDE 28.8 mmol/L (21-32); CHLORIDE SERUM 106 mmol/L (98-107); CREATININE SERUM 0.8 mg/dL (0.6-1.0); GFR1 > 60 mL/min; GLUCOSE SERUM 95 mg/dL (74-106); POTASSIUM SERUM 4.1 mmol/L (3.5-5.1); SODIUM SERUM 141 mmol/L (136-145)
[2018-03-10 06:42] LABS: RED CELL DISTRIBUTION WIDTH 19.6 % (11.5-14.5)
[2018-03-10 08:35] VITALS: BP 106/39
[2018-03-10] MEDS ORDERED: LEV500 PO (10:25)
[2018-03-10] MEDS ORDERED: FERG PO (10:26)
[2018-03-10] MEDS ORDERED: VITC PO (10:26)
[2018-03-10] MEDS ORDERED: LAC PO (10:26)
[2018-03-10] MEDS ORDERED: MEDDP PO (10:33)
[2018-03-10] MEDS ORDERED: NOR10T PO (15:29)
[2018-03-10 15:51] VITALS: BP 106/39
== END 2018-03-10 17:25 | disposition home or self-care (01) | DRG 140 ==
LOC: ED 19:41 → MU 21:47
PROVIDERS: Emergency Medicine; Family Medicine
DX: J44.1 Chronic obstructive pulmonary disease with (acute) exacerbation (principal); J96.01 Acute respiratory failure with hypoxia; L89.151 Pressure ulcer of sacral region, stage 1; E11.51 Type 2 diabetes mellitus with diabetic peripheral angiopathy without gangrene; E87.2 Acidosis; J84.10 Pulmonary fibrosis, unspecified; E11.65 Type 2 diabetes mellitus with hyperglycemia; M51.26 Other intervertebral disc displacement, lumbar region; E83.42 Hypomagnesemia; I69.351 Hemiplegia and hemiparesis following cerebral infarction affecting right dominant side; D50.9 Iron deficiency anemia, unspecified; E78.5 Hyperlipidemia, unspecified; G89.29 Other chronic pain; Z93.1 Gastrostomy status; Z93.3 Colostomy status; Z79.82 Long term (current) use of aspirin; Z68.26 Body mass index [BMI] 26.0-26.9, adult; Z87.891 Personal history of nicotine dependence; Z79.84 Long term (current) use of oral hypoglycemic drugs
CPT/HCPCS: 83880; 84439; 85378; 97110-GP; 97542-GP; J1644; J1885; J2270; J2405; J2543; J2916; J2920; J2930; J3010; J3475; J7030; J7613; J7620; J7644; J8597; Q0092; Q0162; Q9967

== ENCOUNTER 2018-03-25 00:46 | Inpatient (IN) | payer MEDICAID ==
[~2018-03-25] VITALS: Ht 157.5 cm; Wt 66.7 kg
[2018-03-25] VITALS (7 sets, daily range): BP systolic 95–161; BP diastolic 51–92; Ht 157.5 cm; Wt 66.7 kg
[~2018-03-25 00:46] MED LIST changes: +AMLODIPINE BES2.5 M1 PO; +ARTIFICIAL TEAR15 M1; +FERG PO; +LEV500 PO; +LOMOTIL1 TAB PO; +MONTELUKAST SOD10 M1 PO; +NOR10T PO; +ONE DAILY FOR1 EACH PO; +POTASSIUM CHLO10 MEQ PO; +VITC PO; +ZOF4 PO
[2018-03-25 01:42] LABS: CALCIUM 8.5 mg/dL (8.5-10.1); CARBON DIOXIDE 26.7 mmol/L (21-32); CHLORIDE SERUM 105 mmol/L (98-107); CREATININE SERUM 0.9 mg/dL (0.6-1.0); GFR1 > 60 mL/min; GLUCOSE SERUM 179 mg/dL (74-106); POTASSIUM SERUM 4.9 mmol/L (3.5-5.1); SODIUM SERUM 141 mmol/L (136-145)
[2018-03-25 01:49] LABS: ALKALINE PHOSPHATASE 150 U/L (46-116); ALT/SGPT 46 U/L (14-59); AST/SGOT 43 U/L (15-37); BILIRUBIN TOTAL 0.34 mg/dL (0.20-1.00); TOTAL PROTEIN, SERUM 6.6 g/dL (6.4-8.2)
[2018-03-25 01:53] LABS: ALBUMIN 3.2 g/dL (3.4-5.0)
[2018-03-25 02:02] LABS: microscopic required? NO
[2018-03-25 02:15] LABS: CK-MB 17.5 ng/mL (0-3.6)
[2018-03-25 02:18] LABS: UA SPECIFIC GRAVITY <=1.005 (1.005-1.035); urine erythrocyte NEGATIVE (NEGATIVE)
[2018-03-25 02:24] LABS: PLATELET COUNT 301 x10^3mcL (130-400)
[2018-03-25 02:25] LABS: RED CELL DISTRIBUTION WIDTH 23.8 % (11.5-14.5)
[2018-03-25 04:13] LABS: T3 TOTAL 1.52 ng/mL
[2018-03-25 04:14] LABS: CHOLESTEROL/HDL RATIO 6.2; MAGNESIUM 2.1 mg/dL (1.8-2.4); PHOSPHOROUS 4.6 mg/dL (2.5-4.9)
[2018-03-25 04:27] LABS: FREE T4 1.12 ng/dL (0.76-1.46); FREE THYROXINE INDEX 2.6 ug/dL (1.4-4.5); T4(THYROXINE) 7.8 ug/dL (4.7-13.3)
[2018-03-25 04:39] LABS: AMPHETAMINE QUAL UR NONE DETECTED (See below)
[2018-03-25 05:22] LABS: RED BLOOD CELLS 4.39 M/mm3 (4.10-5.10)
[2018-03-25 05:45] LABS: BASOPHIL % 0.1 % (0-2); PLATELET COUNT 246 x10^3mcL (130-400); RED CELL DISTRIBUTION WIDTH 25.6 % (11.5-14.5)
[2018-03-25 05:46] LABS: IRON 47 ug/dL (50-170); TOTAL IRON BINDING CAPACITY 394 ug/dL (250-450)
[2018-03-25 05:53] LABS: CALCIUM 8.7 mg/dL (8.5-10.1); CARBON DIOXIDE 24.1 mmol/L (21-32); CHLORIDE SERUM 98 mmol/L (98-107); CREATININE SERUM 0.9 mg/dL (0.6-1.0); GFR1 > 60 mL/min; GLUCOSE SERUM 255 mg/dL (74-106); SODIUM SERUM 134 mmol/L (136-145)
[2018-03-26 03:29] LABS: BASOPHIL % 0.3 % (0-2); PLATELET COUNT 234 x10^3mcL (130-400)
[2018-03-26 03:48] LABS: RED CELL DISTRIBUTION WIDTH 26.3 % (11.5-14.5)
[2018-03-26 03:52] LABS: CALCIUM 8.4 mg/dL (8.5-10.1); CARBON DIOXIDE 27.6 mmol/L (21-32); CHLORIDE SERUM 108 mmol/L (98-107); CREATININE SERUM 0.9 mg/dL (0.6-1.0); GFR1 > 60 mL/min; GLUCOSE SERUM 285 mg/dL (74-106); MAGNESIUM 1.9 mg/dL (1.8-2.4); PHOSPHOROUS 3.4 mg/dL (2.5-4.9); SODIUM SERUM 143 mmol/L (136-145)
[2018-03-26 04:07] LABS: rbc morphology (normal/abnorm) ABNORMAL (NORMAL)
[2018-03-26 06:10] VITALS: BP 101/52
[2018-03-26 08:06] VITALS: BP 112/50
[2018-03-26 13:44] VITALS: BP 130/60
[2018-03-26 17:18] VITALS: BP 129/48
[2018-03-26 20:40] VITALS: BP 145/62
[2018-03-27 05:01] VITALS: BP 123/52
[2018-03-27 07:31] LABS: BASOPHIL % 0.4 % (0-2); PLATELET COUNT 219 x10^3mcL (130-400)
[2018-03-27 07:34] LABS: RED CELL DISTRIBUTION WIDTH 24.3 % (11.5-14.5)
[2018-03-27 07:39] LABS: CALCIUM 8.5 mg/dL (8.5-10.1); CARBON DIOXIDE 27.9 mmol/L (21-32); CHLORIDE SERUM 108 mmol/L (98-107); CREATININE SERUM 0.7 mg/dL (0.6-1.0); GFR1 > 60 mL/min; GLUCOSE SERUM 235 mg/dL (74-106); POTASSIUM SERUM 4.7 mmol/L (3.5-5.1); SODIUM SERUM 145 mmol/L (136-145)
[2018-03-27 08:28] VITALS: BP 118/90
[2018-03-27 10:59] LABS: rbc morphology (normal/abnorm) ABNORMAL (NORMAL)
[2018-03-27 12:26] VITALS: BP 131/57
[2018-03-27 17:21] VITALS: BP 145/63
[2018-03-27 20:49] VITALS: BP 151/62
[2018-03-28 05:06] VITALS: BP 142/76
[2018-03-28 10:10] VITALS: BP 121/58
[2018-03-28 12:45] VITALS: BP 146/50
[2018-03-28 16:43] VITALS: BP 116/50
[2018-03-28 20:48] VITALS: BP 147/44
[2018-03-29 04:50] VITALS: BP 112/43
[2018-03-29 06:20] LABS: CALCIUM 8.2 mg/dL (8.5-10.1); CARBON DIOXIDE 26.8 mmol/L (21-32); CHLORIDE SERUM 106 mmol/L (98-107); CREATININE SERUM 0.8 mg/dL (0.6-1.0); GFR1 > 60 mL/min; GLUCOSE SERUM 166 mg/dL (74-106); POTASSIUM SERUM 4.5 mmol/L (3.5-5.1); SODIUM SERUM 142 mmol/L (136-145)
[2018-03-29 06:21] LABS: BASOPHIL % 0.3 % (0-2); PLATELET COUNT 233 x10^3mcL (130-400); RED CELL DISTRIBUTION WIDTH 26.8 % (11.5-14.5)
[2018-03-29 08:06] LABS: ovalocyte/elliptocyte 1+
[2018-03-29 08:15] LABS: rbc morphology (normal/abnorm) ABNORMAL (NORMAL)
[2018-03-29 08:31] VITALS: BP 137/53
[2018-03-29 12:16] VITALS: BP 144/60
[2018-03-29] MEDS ORDERED: FER300 PO (13:17)
[2018-03-29] MEDS ORDERED: PRA20 PO (13:18)
[2018-03-29] MEDS ORDERED: COU5 PO (13:18)
[2018-03-29] MEDS ORDERED: PREDNISONE20 MG PO ×2 (13:19→13:20)
[2018-03-29] MEDS ORDERED: PREDNISONE5 MG PO (13:19)
[2018-03-29] MEDS ORDERED: VENTOLIN H0.09 MG/A1 INH (13:21)
[2018-03-29] MEDS ORDERED: LEVOFLOXACIN500 M1 PO (13:25)
[2018-03-29 15:37] VITALS: BP 144/60
[2018-03-29 16:43] VITALS: BP 144/60
[2018-03-29 16:59] VITALS: BP 128/92
== END 2018-03-29 17:59 | disposition home or self-care (01) | DRG 140 ==
LOC: ED 00:46 → DU 02:45
PROVIDERS: Emergency Medicine; Family Medicine; Internal Medicine
DX: J44.1 Chronic obstructive pulmonary disease with (acute) exacerbation (principal); I26.99 Other pulmonary embolism without acute cor pulmonale; J96.01 Acute respiratory failure with hypoxia; E44.0 Moderate protein-calorie malnutrition; D68.69 Other thrombophilia; E11.65 Type 2 diabetes mellitus with hyperglycemia; E87.1 Hypo-osmolality and hyponatremia; I69.354 Hemiplegia and hemiparesis following cerebral infarction affecting left non-dominant side; I10 Essential (primary) hypertension; R74.0 Nonspecific elevation of levels of transaminase and lactic acid dehydrogenase [LDH]; D64.9 Anemia, unspecified; G47.33 Obstructive sleep apnea (adult) (pediatric); E66.9 Obesity, unspecified; Z68.36 Body mass index [BMI] 36.0-36.9, adult; Z93.3 Colostomy status; Z93.1 Gastrostomy status; Z99.3 Dependence on wheelchair; Z87.891 Personal history of nicotine dependence; Z87.01 Personal history of pneumonia (recurrent); Z79.84 Long term (current) use of oral hypoglycemic drugs; Z79.82 Long term (current) use of aspirin
CPT/HCPCS: 36600; 83880; 84439; 92610-GN; 94150; 97110-GP; 97116-GP; 97530-GP; 97535-GP; J1644; J1956; J2270; J2405; J2920; J2930; J7030; J7620; J7626; J8597; Q9967

== ENCOUNTER 2018-04-02 04:05 | Inpatient (IN) | payer MEDICAID ==
[~2018-04-02] VITALS: Ht 160 cm; Wt 65.9 kg
[~2018-04-02 04:05] MED LIST changes: +COU5 PO; +FER300 PO; +LEVOFLOXACIN500 M1 PO; +PRA20 PO; +PREDNISONE20 MG PO; +PREDNISONE5 MG PO; +VENTOLIN H0.09 MG/A1 INH
[2018-04-02 04:11] VITALS: Ht 160 cm; Wt 65.9 kg
[2018-04-02 04:59] LABS: PLATELET COUNT 306 x10^3mcL (130-400)
[2018-04-02 05:01] LABS: BASOPHIL % 2.2 % (0-2)
[2018-04-02 05:06] LABS: CALCIUM 8.1 mg/dL (8.5-10.1); CARBON DIOXIDE 23.2 mmol/L (21-32); CHLORIDE SERUM 104 mmol/L (98-107); CREATININE SERUM 0.7 mg/dL (0.6-1.0); GFR1 > 60 mL/min; GLUCOSE SERUM 246 mg/dL (74-106); POTASSIUM SERUM 4.5 mmol/L (3.5-5.1); SODIUM SERUM 136 mmol/L (136-145)
[2018-04-02 05:10] LABS: ALKALINE PHOSPHATASE 117 U/L (46-116); ALT/SGPT 33 U/L (14-59); AST/SGOT 17 U/L (15-37); BILIRUBIN TOTAL 0.26 mg/dL (0.20-1.00); CHOLESTEROL 138 mg/dL (<200); HDL CHOLESTEROL 58 mg/dL (40-60); TOTAL PROTEIN, SERUM 6.8 g/dL (6.4-8.2); URIC ACID 2.8 mg/dL (2.6-6.0)
[2018-04-02 05:13] LABS: ALBUMIN 2.8 g/dL (3.4-5.0)
[2018-04-02 05:52] LABS: rbc morphology (normal/abnorm) ABNORMAL (NORMAL); tear drop cell (dacryocyte) 1+
[2018-04-02 07:21] LABS: FREE T4 1.26 ng/dL (0.76-1.46); FREE THYROXINE INDEX 3.1 ug/dL (1.4-4.5); T4(THYROXINE) 8.6 ug/dL (4.7-13.3)
[2018-04-02 07:25] LABS: CHOLESTEROL/HDL RATIO 2.3
[2018-04-02 07:32] LABS: T3 TOTAL 0.74 ng/mL
[2018-04-02 07:45] VITALS: BP 136/60
[2018-04-02 08:15] VITALS: BP 151/62
[2018-04-02 09:15] VITALS: BP 126/59
[2018-04-02 18:00] VITALS: BP 123/47
[2018-04-02 20:21] VITALS: BP 110/53
[2018-04-03 05:40] VITALS: BP 125/44
[2018-04-03 06:22] LABS: CALCIUM 7.9 mg/dL (8.5-10.1); CHLORIDE SERUM 107 mmol/L (98-107); CREATININE SERUM 0.7 mg/dL (0.6-1.0); GFR1 > 60 mL/min; GLUCOSE SERUM 149 mg/dL (74-106); MAGNESIUM 1.7 mg/dL (1.8-2.4); PHOSPHOROUS 3.3 mg/dL (2.5-4.9); POTASSIUM SERUM 4.5 mmol/L (3.5-5.1); SODIUM SERUM 138 mmol/L (136-145)
[2018-04-03 07:11] LABS: BASOPHIL % 0.4 % (0-2); PLATELET COUNT 290 x10^3mcL (130-400)
[2018-04-03 07:18] LABS: RED CELL DISTRIBUTION WIDTH 26.1 % (11.5-14.5)
[2018-04-03 09:03] VITALS: BP 119/41
[2018-04-03] MEDS ORDERED: NOR10T PO (11:18)
[2018-04-03 11:35] VITALS: BP 119/41
== END 2018-04-03 15:00 | disposition home or self-care (01) | DRG 254 ==
LOC: ED 04:05 → MU 05:46
PROVIDERS: Emergency Medicine; Internal Medicine
DX: Z43.1 Encounter for attention to gastrostomy (principal); D68.69 Other thrombophilia; E44.0 Moderate protein-calorie malnutrition; I69.354 Hemiplegia and hemiparesis following cerebral infarction affecting left non-dominant side; E11.65 Type 2 diabetes mellitus with hyperglycemia; E83.51 Hypocalcemia; J44.9 Chronic obstructive pulmonary disease, unspecified; I10 Essential (primary) hypertension; D64.9 Anemia, unspecified; D72.829 Elevated white blood cell count, unspecified; I70.209 Unspecified atherosclerosis of native arteries of extremities, unspecified extremity; E78.1 Pure hyperglyceridemia; Z99.3 Dependence on wheelchair; Z68.27 Body mass index [BMI] 27.0-27.9, adult; Z87.891 Personal history of nicotine dependence; Z86.711 Personal history of pulmonary embolism; Z79.01 Long term (current) use of anticoagulants; Z79.84 Long term (current) use of oral hypoglycemic drugs
CPT/HCPCS: 83880; 84439; J1885; J2060; J2270; J3010; J7030; J7620; J7626; J8597; Q0092

== ENCOUNTER 2018-04-12 12:21 | Inpatient (IN) | payer MEDICAID ==
[~2018-04-12] VITALS: Ht 160 cm; Wt 65.8 kg
[2018-04-12 14:02] LABS: CALCIUM 8.3 mg/dL (8.5-10.1); CREATININE SERUM 1.2 mg/dL (0.6-1.0); POTASSIUM SERUM 3.4 mmol/L (3.5-5.1)
[2018-04-12 14:07] LABS: ALBUMIN 2.7 g/dL (3.4-5.0); BILIRUBIN TOTAL 0.5 mg/dL (0.20-1.00); TOTAL PROTEIN, SERUM 6.2 g/dL (6.4-8.2)
[2018-04-12 14:16] LABS: PLATELET COUNT 323 x10^3mcL (130-400)
[2018-04-12 14:32] LABS: RED CELL DISTRIBUTION WIDTH 26.2 % (11.5-14.5)
[2018-04-12 15:33] LABS: BAND NEUTROPHIL 20 % (0-10); BASOPHIL 0 % (0-2); MONOCYTE 7 % (0-7); SEGMENTED NEUTROPHILS 67 % (37-75); rbc morphology (normal/abnorm) ABNORMAL (NORMAL)
[2018-04-12] MEDS ORDERED: APAP/HYDROCODON1 T13 PO (15:33)
[2018-04-12] MEDS ORDERED: FERROUS SULFAT325 M2 PO (15:33)
[2018-04-12] MEDS ORDERED: VITAMIN C500 M6 PO (15:34)
[2018-04-12] MEDS ORDERED: PRAVASTATIN SOD20 M1 PO (15:34)
[2018-04-12] MEDS ORDERED: LEXAPRO10 MG PO (15:34)
[2018-04-12] MEDS ORDERED: LIPI20 PO (15:35)
[2018-04-12] MEDS ORDERED: TRAMADOL HCL50 MG PO (15:35)
[2018-04-12] MEDS ORDERED: PRAVACHOL20 MG PO (15:35)
[2018-04-12] MEDS ORDERED: GABAPENTIN100 M2 PO (15:36)
[2018-04-12] MEDS ORDERED: PREDNISONE20 MG PO (15:37)
[2018-04-12] MEDS ORDERED: TRAZODONE50 M1 PO (15:37)
[2018-04-12] MEDS ORDERED: LEVOFLOXACIN500 M1 PO (15:37)
[2018-04-12] MEDS ORDERED: COUMADIN5 MG PO (15:37)
[2018-04-12] MEDS ORDERED: ADV250/50 (15:38)
[2018-04-12] MEDS ORDERED: METFORMIN HCL500 MG PO (15:38)
[2018-04-12] MEDS ORDERED: BACTRIM DS1 TAB PO (15:38)
[2018-04-12 15:56] LABS: microscopic required? YES; urine erythrocyte TRACE (NEGATIVE)
[2018-04-12 19:47] LABS: CHOLESTEROL/HDL RATIO 2.4; MAGNESIUM 1.3 mg/dL (1.8-2.4); PHOSPHOROUS 3.4 mg/dL (2.5-4.9)
[2018-04-12 19:51] VITALS: BP 134/49
[2018-04-12 19:52] LABS: AMPHETAMINE QUAL UR NONE DETECTED (See below)
[2018-04-12 19:55] LABS: FREE T4 1.03 ng/dL (0.76-1.46); FREE THYROXINE INDEX 2.1 ug/dL (1.4-4.5); T4(THYROXINE) 6.3 ug/dL (4.7-13.3)
[2018-04-12 20:06] VITALS: Ht 160 cm; Wt 65.8 kg
[2018-04-12 20:41] LABS: T3 TOTAL 0.64 ng/mL
[2018-04-13] VITALS (10 sets, daily range): BP systolic 91–138; BP diastolic 34–53
[2018-04-13 06:35] LABS: PLATELET COUNT 213 x10^3mcL (130-400)
[2018-04-13 06:52] LABS: CALCIUM 7.8 mg/dL (8.5-10.1); CARBON DIOXIDE 22.5 mmol/L (21-32); CHLORIDE SERUM 107 mmol/L (98-107); CREATININE SERUM 0.8 mg/dL (0.6-1.0); GFR1 > 60 mL/min; GLUCOSE SERUM 128 mg/dL (74-106); MAGNESIUM 1.4 mg/dL (1.8-2.4); PHOSPHOROUS 3.8 mg/dL (2.5-4.9); POTASSIUM SERUM 3.9 mmol/L (3.5-5.1); SODIUM SERUM 139 mmol/L (136-145)
[2018-04-13 07:37] LABS: RED CELL DISTRIBUTION WIDTH 26.8 % (11.5-14.5)
[2018-04-13 11:17] LABS: ATYPICAL LYMPH 3 %; BAND NEUTROPHIL 4 % (0-10); BASOPHIL 0 % (0-2); SEGMENTED NEUTROPHILS 92 % (37-75)
[2018-04-13 11:18] LABS: PLATELET MORPHOLOGY PLATELETS DECREASED; rbc morphology (normal/abnorm) ABNORMAL (NORMAL)
[2018-04-14 05:28] VITALS: BP 118/48
[2018-04-14 06:15] LABS: BASOPHIL % 0.3 % (0-2); PLATELET COUNT 208 x10^3mcL (130-400)
[2018-04-14 06:26] LABS: RED CELL DISTRIBUTION WIDTH 26.7 % (11.5-14.5)
[2018-04-14 06:44] LABS: CARBON DIOXIDE 25.1 mmol/L (21-32); CHLORIDE SERUM 110 mmol/L (98-107); CREATININE SERUM 0.6 mg/dL (0.6-1.0); GFR1 > 60 mL/min; GLUCOSE SERUM 150 mg/dL (74-106); POTASSIUM SERUM 3.5 mmol/L (3.5-5.1); SODIUM SERUM 141 mmol/L (136-145)
[2018-04-14 09:09] LABS: rbc morphology (normal/abnorm) ABNORMAL (NORMAL)
[2018-04-14 09:34] VITALS: BP 128/44
[2018-04-14 17:04] VITALS: BP 156/57
[2018-04-14 20:41] VITALS: BP 140/49
[2018-04-15 05:20] VITALS: BP 124/48
[2018-04-15 07:16] LABS: BASOPHIL % 0.6 % (0-2); PLATELET COUNT 227 x10^3mcL (130-400)
[2018-04-15 07:18] LABS: RED CELL DISTRIBUTION WIDTH 26.7 % (11.5-14.5)
[2018-04-15 07:30] LABS: CALCIUM 8.3 mg/dL (8.5-10.1); CARBON DIOXIDE 23.7 mmol/L (21-32); CHLORIDE SERUM 111 mmol/L (98-107); CREATININE SERUM 0.7 mg/dL (0.6-1.0); GFR1 > 60 mL/min; GLUCOSE SERUM 107 mg/dL (74-106); POTASSIUM SERUM 3.9 mmol/L (3.5-5.1); SODIUM SERUM 144 mmol/L (136-145)
[2018-04-15 08:45] VITALS: BP 139/40
[2018-04-15 08:59] LABS: ovalocyte/elliptocyte 1+
[2018-04-15 09:00] LABS: rbc morphology (normal/abnorm) ABNORMAL (NORMAL)
[2018-04-15 10:33] VITALS: BP 139/40
[2018-04-15 13:44] VITALS: BP 135/49
[2018-04-15 17:17] VITALS: BP 144/55
[2018-04-15 20:29] VITALS: BP 111/43
[2018-04-16 05:37] VITALS: BP 105/43
[2018-04-16 07:19] LABS: BASOPHIL % 0.7 % (0-2); PLATELET COUNT 253 x10^3mcL (130-400)
[2018-04-16 07:21] LABS: RED CELL DISTRIBUTION WIDTH 24.1 % (11.5-14.5)
[2018-04-16 07:29] LABS: CALCIUM 8.1 mg/dL (8.5-10.1); CARBON DIOXIDE 23.1 mmol/L (21-32); CHLORIDE SERUM 109 mmol/L (98-107); CREATININE SERUM 0.7 mg/dL (0.6-1.0); GFR1 > 60 mL/min; GLUCOSE SERUM 129 mg/dL (74-106); SODIUM SERUM 142 mmol/L (136-145)
[2018-04-16 09:02] LABS: tear drop cell (dacryocyte) 1+
[2018-04-16 09:03] LABS: rbc morphology (normal/abnorm) ABNORMAL (NORMAL)
[2018-04-16 09:08] VITALS: BP 132/50
[2018-04-16 13:04] VITALS: BP 103/63
[2018-04-16 16:54] VITALS: BP 113/36
[2018-04-16 21:07] VITALS: BP 108/45
[2018-04-17 05:15] VITALS: BP 124/48
[2018-04-17 06:54] LABS: BASOPHIL % 0.6 % (0-2); PLATELET COUNT 286 x10^3mcL (130-400)
[2018-04-17 07:04] LABS: CALCIUM 8.3 mg/dL (8.5-10.1); CHLORIDE SERUM 107 mmol/L (98-107); CREATININE SERUM 0.8 mg/dL (0.6-1.0); GFR1 > 60 mL/min; GLUCOSE SERUM 120 mg/dL (74-106); POTASSIUM SERUM 4.1 mmol/L (3.5-5.1); RED CELL DISTRIBUTION WIDTH 25.9 % (11.5-14.5); SODIUM SERUM 140 mmol/L (136-145)
[2018-04-17 07:33] LABS: ovalocyte/elliptocyte 1+; rbc morphology (normal/abnorm) ABNORMAL (NORMAL); tear drop cell (dacryocyte) 1+
[2018-04-17 09:02] VITALS: BP 107/41
[2018-04-17 11:12] VITALS: BP 116/41
[2018-04-17 17:06] VITALS: BP 102/55
[2018-04-17 21:18] VITALS: BP 102/55
[2018-04-18 06:10] LABS: BASOPHIL % 0.6 % (0-2); PLATELET COUNT 309 x10^3mcL (130-400)
[2018-04-18 06:29] LABS: CALCIUM 8.5 mg/dL (8.5-10.1); CARBON DIOXIDE 24.4 mmol/L (21-32); CHLORIDE SERUM 108 mmol/L (98-107); CREATININE SERUM 0.7 mg/dL (0.6-1.0); GFR1 > 60 mL/min; GLUCOSE SERUM 116 mg/dL (74-106); MAGNESIUM 1.8 mg/dL (1.8-2.4); PHOSPHOROUS 3.8 mg/dL (2.5-4.9); POTASSIUM SERUM 4.3 mmol/L (3.5-5.1); SODIUM SERUM 140 mmol/L (136-145)
[2018-04-18 06:47] VITALS: BP 117/47
[2018-04-18 06:53] LABS: RED CELL DISTRIBUTION WIDTH 25.8 % (11.5-14.5)
[2018-04-18 08:56] LABS: rbc morphology (normal/abnorm) ABNORMAL (NORMAL)
[2018-04-18 10:06] VITALS: BP 127/52
[2018-04-18 12:35] VITALS: BP 127/51
[2018-04-18 17:24] VITALS: BP 110/48
[2018-04-18 20:54] VITALS: BP 117/53
[2018-04-19 04:46] VITALS: BP 114/41
[2018-04-19 07:12] LABS: CALCIUM 8.4 mg/dL (8.5-10.1); CARBON DIOXIDE 23.2 mmol/L (21-32); CHLORIDE SERUM 108 mmol/L (98-107); CREATININE SERUM 0.7 mg/dL (0.6-1.0); GFR1 > 60 mL/min; GLUCOSE SERUM 120 mg/dL (74-106); MAGNESIUM 1.8 mg/dL (1.8-2.4); PHOSPHOROUS 3.6 mg/dL (2.5-4.9); POTASSIUM SERUM 4.2 mmol/L (3.5-5.1); SODIUM SERUM 140 mmol/L (136-145)
[2018-04-19 07:40] LABS: BASOPHIL % 0.6 % (0-2); PLATELET COUNT 333 x10^3mcL (130-400)
[2018-04-19 09:04] LABS: tear drop cell (dacryocyte) 1+
[2018-04-19 09:05] LABS: rbc morphology (normal/abnorm) ABNORMAL (NORMAL)
[2018-04-19 09:08] VITALS: BP 121/70
[2018-04-19 12:56] VITALS: BP 122/41
[2018-04-19 17:08] VITALS: BP 106/41
[2018-04-19 20:45] VITALS: BP 114/60
[2018-04-20 06:00] VITALS: BP 106/55
[2018-04-20 07:20] LABS: BASOPHIL % 0.8 % (0-2); PLATELET COUNT 338 x10^3mcL (130-400)
[2018-04-20 07:21] LABS: RED CELL DISTRIBUTION WIDTH 23.7 % (11.5-14.5)
[2018-04-20 07:24] LABS: CALCIUM 8.6 mg/dL (8.5-10.1); CARBON DIOXIDE 23.2 mmol/L (21-32); CHLORIDE SERUM 109 mmol/L (98-107); CREATININE SERUM 0.6 mg/dL (0.6-1.0); GFR1 > 60 mL/min; GLUCOSE SERUM 122 mg/dL (74-106); POTASSIUM SERUM 4.2 mmol/L (3.5-5.1); SODIUM SERUM 140 mmol/L (136-145)
[2018-04-20 09:30] VITALS: BP 95/45
[2018-04-20 10:00] VITALS: BP 103/44
[2018-04-20 12:20] VITALS: BP 126/44
[2018-04-20 15:56] VITALS: BP 102/45
[2018-04-20 20:28] VITALS: BP 113/48
[2018-04-21 05:36] VITALS: BP 129/49
[2018-04-21 06:27] LABS: CALCIUM 8.7 mg/dL (8.5-10.1); CARBON DIOXIDE 27.3 mmol/L (21-32); CHLORIDE SERUM 107 mmol/L (98-107); CREATININE SERUM 0.7 mg/dL (0.6-1.0); GFR1 > 60 mL/min; GLUCOSE SERUM 130 mg/dL (74-106); POTASSIUM SERUM 4.7 mmol/L (3.5-5.1); SODIUM SERUM 139 mmol/L (136-145)
[2018-04-21 06:37] LABS: BASOPHIL % 0.8 % (0-2); PLATELET COUNT 329 x10^3mcL (130-400)
[2018-04-21 07:02] LABS: RED CELL DISTRIBUTION WIDTH 25.2 % (11.5-14.5)
[2018-04-21 09:13] VITALS: BP 120/51
[2018-04-21 12:45] VITALS: BP 113/54
[2018-04-21 15:52] VITALS: BP 114/50
[2018-04-21 20:31] VITALS: BP 133/74
[2018-04-22 05:51] VITALS: BP 111/49
[2018-04-22 06:53] LABS: BASOPHIL % 0.9 % (0-2); PLATELET COUNT 322 x10^3mcL (130-400)
[2018-04-22 07:24] LABS: CALCIUM 8.9 mg/dL (8.5-10.1); CHLORIDE SERUM 104 mmol/L (98-107); CREATININE SERUM 0.7 mg/dL (0.6-1.0); GFR1 > 60 mL/min; GLUCOSE SERUM 150 mg/dL (74-106); MAGNESIUM 1.9 mg/dL (1.8-2.4); PHOSPHOROUS 3.5 mg/dL (2.5-4.9); POTASSIUM SERUM 4.5 mmol/L (3.5-5.1); SODIUM SERUM 138 mmol/L (136-145)
[2018-04-22 07:30] LABS: RED CELL DISTRIBUTION WIDTH 24.9 % (11.5-14.5)
[2018-04-22 09:00] VITALS: BP 103/51
[2018-04-22 12:19] VITALS: BP 106/48
[2018-04-22 14:52] VITALS: BP 106/48
== END 2018-04-22 16:32 | disposition home or self-care (01) | DRG 720 ==
LOC: ED 12:21 → DU 18:26
PROVIDERS: Emergency Medicine; Family Medicine; Internal Medicine
PROC: 05PYX3Z Removal of Infusion Device from Upper Vein, External Approach (ICD-10-PCS; principal; 2018-04-15)
DX: A41.9 Sepsis, unspecified organism (principal); N17.0 Acute kidney failure with tubular necrosis; E44.0 Moderate protein-calorie malnutrition; K55.1 Chronic vascular disorders of intestine; E11.65 Type 2 diabetes mellitus with hyperglycemia; E83.42 Hypomagnesemia; D68.69 Other thrombophilia; E11.51 Type 2 diabetes mellitus with diabetic peripheral angiopathy without gangrene; E87.1 Hypo-osmolality and hyponatremia; I69.954 Hemiplegia and hemiparesis following unspecified cerebrovascular disease affecting left non-dominant side; R65.20 Severe sepsis without septic shock; N39.0 Urinary tract infection, site not specified; B96.20 Unspecified Escherichia coli [E. coli] as the cause of diseases classified elsewhere; R74.0 Nonspecific elevation of levels of transaminase and lactic acid dehydrogenase [LDH]; E87.6 Hypokalemia; I10 Essential (primary) hypertension; G89.29 Other chronic pain; J44.9 Chronic obstructive pulmonary disease, unspecified; M19.90 Unspecified osteoarthritis, unspecified site; E78.5 Hyperlipidemia, unspecified; D64.9 Anemia, unspecified; Z93.2 Ileostomy status; Z79.82 Long term (current) use of aspirin; Z68.25 Body mass index [BMI] 25.0-25.9, adult; Z87.891 Personal history of nicotine dependence; Z79.84 Long term (current) use of oral hypoglycemic drugs; Z16.12 Extended spectrum beta lactamase (ESBL) resistance
CPT/HCPCS: 82962; 84439; 94150; 97110-GP; 97116-GP; 97530-GP; J0696; J1644; J2001; J2185; J2270; J2543; J3010; J3535; J7030; J7512; J7613; J8597; Q0092; Q0162; Q9967

== ENCOUNTER 2018-06-11 23:24 | Emergency (ER) | payer MEDICAID ==
[~2018-06-11 23:24] MED LIST changes: +ADV250/50; +APAP/HYDROCODON1 T13 PO; +BACTRIM DS1 TAB PO; +COUMADIN5 MG PO; +FERROUS SULFAT325 M2 PO; +GABAPENTIN100 M2 PO; +PRAVASTATIN SOD20 M1 PO; +VITAMIN C500 M6 PO
[2018-06-12 00:20] LABS: BASOPHIL % 0.9 % (0-2)
[2018-06-12 00:37] LABS: PLATELET COUNT 487 x10^3mcL (130-400); RED CELL DISTRIBUTION WIDTH 16.6 % (11.5-14.5)
[2018-06-12 00:44] LABS: CALCIUM 8.1 mg/dL (8.5-10.1); CARBON DIOXIDE 21.1 mmol/L (21-32); CHLORIDE SERUM 103 mmol/L (98-107); CREATININE SERUM 0.9 mg/dL (0.6-1.0); GFR1 > 60 mL/min; GLUCOSE SERUM 186 mg/dL (74-106); POTASSIUM SERUM 4.6 mmol/L (3.5-5.1); SODIUM SERUM 134 mmol/L (136-145)
[2018-06-12 00:48] LABS: ALKALINE PHOSPHATASE 109 U/L (46-116); ALT/SGPT 19 U/L (14-59); AST/SGOT 23 U/L (15-37); BILIRUBIN TOTAL 0.2 mg/dL (0.20-1.00); LIPASE 232 IU/L (73-393); TOTAL PROTEIN, SERUM 6.8 g/dL (6.4-8.2)
[2018-06-12 01:08] LABS: rbc morphology (normal/abnorm) ABNORMAL (NORMAL)
[2018-06-12 02:33] VITALS: BP 124/55
== END 2018-06-12 02:33 | disposition short-term general hospital (02) ==
LOC: ED 23:24
PROVIDERS: Emergency Medicine
DX: K92.2 Gastrointestinal hemorrhage, unspecified (principal); T45.515A Adverse effect of anticoagulants, initial encounter; J45.909 Unspecified asthma, uncomplicated; J44.9 Chronic obstructive pulmonary disease, unspecified; I10 Essential (primary) hypertension; E11.9 Type 2 diabetes mellitus without complications; Z86.73 Personal history of transient ischemic attack (TIA), and cerebral infarction without residual deficits; Z88.6 Allergy status to analgesic agent; Z90.49 Acquired absence of other specified parts of digestive tract; Y92.89 Other specified places as the place of occurrence of the external cause; Z98.890 Other specified postprocedural states
CPT/HCPCS: 83880; G0480; J2060; J2270; J2405; J3430; J3490; Q0092

== ENCOUNTER 2018-06-22 00:16 | Inpatient (IN) | payer MEDICAID ==
[~2018-06-22] VITALS: Ht 157.5 cm; Wt 63.2 kg
[2018-06-22 01:23] LABS: BASOPHIL % 0.9 % (0-2); RED CELL DISTRIBUTION WIDTH 14.4 % (11.5-14.5)
[2018-06-22 01:36] LABS: PLATELET COUNT 425 x10^3mcL (130-400)
[2018-06-22 01:37] LABS: CREATININE SERUM 1.1 mg/dL (0.6-1.0)
[2018-06-22 01:42] LABS: ALBUMIN 3.2 g/dL (3.4-5.0); BILIRUBIN TOTAL 1.07 mg/dL (0.20-1.00); TOTAL PROTEIN, SERUM 7.7 g/dL (6.4-8.2)
[2018-06-22 01:50] LABS: CK-MB 1.6 ng/mL (0-3.6)
[2018-06-22] MEDS ORDERED: LIPI20 PO (03:47)
[2018-06-22] MEDS ORDERED: ELIQUIS2.5 MG PO (03:47)
[2018-06-22] MEDS ORDERED: GABAPENTIN100 M2 PO (03:48)
[2018-06-22] MEDS ORDERED: PROTONIX20 MG PO (03:48)
[2018-06-22] MEDS ORDERED: TOPROL XL25 MG PO (03:49)
[2018-06-22] MEDS ORDERED: ATORVASTATIN CA40 M1 PO (03:59)
[2018-06-22] MEDS ORDERED: METOCLOPRAMIDE H5 M1 PO (04:00)
[2018-06-22] MEDS ORDERED: PROTONIX40 MG PO (04:00)
[2018-06-22] MEDS ORDERED: ELIQUIS5 MG PO (04:01)
[2018-06-22 04:24] LABS: MAGNESIUM 1.7 mg/dL (1.8-2.4)
[2018-06-22 04:25] LABS: CHOLESTEROL/HDL RATIO 2.2
[2018-06-22 04:38] VITALS: BP 138/42
[2018-06-22 10:43] VITALS: BP 118/48
[2018-06-22 18:12] VITALS: BP 106/50
[2018-06-22 20:57] VITALS: BP 144/60
[2018-06-22 23:38] LABS: microscopic required? YES; urine erythrocyte NEGATIVE (NEGATIVE)
[2018-06-22 23:48] LABS: AMPHETAMINE QUAL UR NONE DETECTED (See below)
[2018-06-23 05:48] VITALS: BP 151/53
[2018-06-23 07:24] LABS: BASOPHIL % 1.7 % (0-2); PLATELET COUNT 291 x10^3mcL (130-400)
[2018-06-23 07:54] LABS: RED CELL DISTRIBUTION WIDTH 15.6 % (11.5-14.5)
[2018-06-23 08:09] LABS: CALCIUM 8.2 mg/dL (8.5-10.1); CARBON DIOXIDE 27.4 mmol/L (21-32); CHLORIDE SERUM 105 mmol/L (98-107); CREATININE SERUM 0.9 mg/dL (0.6-1.0); GFR1 > 60 mL/min; GLUCOSE SERUM 94 mg/dL (74-106); MAGNESIUM 1.9 mg/dL (1.8-2.4); PHOSPHOROUS 3.9 mg/dL (2.5-4.9); POTASSIUM SERUM 3.9 mmol/L (3.5-5.1); SODIUM SERUM 141 mmol/L (136-145)
[2018-06-23 09:19] VITALS: BP 131/56
[2018-06-23 14:23] VITALS: BP 131/56
[2018-06-27 09:48] VITALS: Ht 157.5 cm; Wt 63.2 kg
== END 2018-06-23 15:39 | disposition short-term general hospital (02) | DRG 247 ==
LOC: ED 00:16 → MU 03:16
PROVIDERS: Emergency Medicine; Family Medicine
DX: K56.600 Partial intestinal obstruction, unspecified as to cause (principal); E44.1 Mild protein-calorie malnutrition; I69.354 Hemiplegia and hemiparesis following cerebral infarction affecting left non-dominant side; E87.1 Hypo-osmolality and hyponatremia; E11.9 Type 2 diabetes mellitus without complications; D64.9 Anemia, unspecified; I10 Essential (primary) hypertension; J44.9 Chronic obstructive pulmonary disease, unspecified; Z93.3 Colostomy status; Z68.29 Body mass index [BMI] 29.0-29.9, adult; Z86.711 Personal history of pulmonary embolism
CPT/HCPCS: J2270; J2405; J8597; Q9967

== ENCOUNTER 2018-07-07 20:58 | Inpatient (IN) | payer MEDICAID ==
[~2018-07-07] VITALS: Ht 162.6 cm; Wt 63.2 kg
[~2018-07-07 20:58] MED LIST changes: +ATORVASTATIN CA40 M1 PO; +ELIQUIS2.5 MG PO; +ELIQUIS5 MG PO; +METOCLOPRAMIDE H5 M1 PO; +PROTONIX20 MG PO; +TOPROL XL25 MG PO
[2018-07-07 20:59] VITALS: Ht 162.6 cm; Wt 63.2 kg
[2018-07-07 21:42] LABS: BASOPHIL % 1.4 % (0-2); PLATELET COUNT 386 x10^3mcL (130-400); RED CELL DISTRIBUTION WIDTH 16.5 % (11.5-14.5)
[2018-07-07 21:46] LABS: CALCIUM 8.4 mg/dL (8.5-10.1); CARBON DIOXIDE 26.9 mmol/L (21-32); CHLORIDE SERUM 104 mmol/L (98-107); CREATININE SERUM 0.8 mg/dL (0.6-1.0); GFR1 > 60 mL/min; GLUCOSE SERUM 151 mg/dL (74-106); POTASSIUM SERUM 4.2 mmol/L (3.5-5.1); SODIUM SERUM 140 mmol/L (136-145)
[2018-07-07 21:49] LABS: MAGNESIUM 1.6 mg/dL (1.8-2.4); PHOSPHOROUS 3.8 mg/dL (2.5-4.9)
[2018-07-07] MEDS ORDERED: COLACE100 MG PO (22:04)
[2018-07-07] MEDS ORDERED: ADV250/50 INH (22:05)
[2018-07-07] MEDS ORDERED: GABAPENTIN100 M2 PO (22:06)
[2018-07-07 22:07] LABS: CK-MB 3.7 ng/mL (0-3.6)
[2018-07-07] MEDS ORDERED: LEXAPRO10 MG PO (22:07)
[2018-07-07] MEDS ORDERED: LANTUS SOLOS100 U/M1 SQ (22:08)
[2018-07-07] MEDS ORDERED: HUMALOG100 UNIT/1 SQ (22:09)
[2018-07-07 22:56] LABS: CHOLESTEROL/HDL RATIO 2.3
[2018-07-08] VITALS (7 sets, daily range): BP systolic 107–152; BP diastolic 47–55
[2018-07-08 10:09] LABS: BASOPHIL % 0.2 % (0-2); PLATELET COUNT 280 x10^3mcL (130-400)
[2018-07-08 10:13] LABS: RED CELL DISTRIBUTION WIDTH 16.8 % (11.5-14.5)
[2018-07-08 10:24] LABS: CALCIUM 8.5 mg/dL (8.5-10.1); CARBON DIOXIDE 23.3 mmol/L (21-32); CHLORIDE SERUM 105 mmol/L (98-107); CREATININE SERUM 0.8 mg/dL (0.6-1.0); GFR1 > 60 mL/min; GLUCOSE SERUM 210 mg/dL (74-106); MAGNESIUM 1.7 mg/dL (1.8-2.4); PHOSPHOROUS 3.5 mg/dL (2.5-4.9); SODIUM SERUM 138 mmol/L (136-145)
[2018-07-09 05:14] VITALS: BP 101/32
[2018-07-09 06:59] LABS: CALCIUM 8.3 mg/dL (8.5-10.1); CARBON DIOXIDE 27.7 mmol/L (21-32); CHLORIDE SERUM 104 mmol/L (98-107); CREATININE SERUM 0.8 mg/dL (0.6-1.0); GFR1 > 60 mL/min; GLUCOSE SERUM 116 mg/dL (74-106); MAGNESIUM 1.9 mg/dL (1.8-2.4); PHOSPHOROUS 3.3 mg/dL (2.5-4.9); POTASSIUM SERUM 4.3 mmol/L (3.5-5.1); SODIUM SERUM 140 mmol/L (136-145)
[2018-07-09 07:16] LABS: BASOPHIL % 0.6 % (0-2); PLATELET COUNT 305 x10^3mcL (130-400)
[2018-07-09 07:21] LABS: RED CELL DISTRIBUTION WIDTH 16.5 % (11.5-14.5)
[2018-07-09 09:34] VITALS: BP 123/48
[2018-07-09 13:46] VITALS: BP 113/72
[2018-07-09 16:43] VITALS: BP 106/41
[2018-07-09 22:03] VITALS: BP 98/39
[2018-07-10 05:02] VITALS: BP 100/37
[2018-07-10 06:24] LABS: CALCIUM 8.5 mg/dL (8.5-10.1); CARBON DIOXIDE 30.3 mmol/L (21-32); CHLORIDE SERUM 105 mmol/L (98-107); CREATININE SERUM 0.8 mg/dL (0.6-1.0); GFR1 > 60 mL/min; GLUCOSE SERUM 179 mg/dL (74-106); PHOSPHOROUS 4.1 mg/dL (2.5-4.9); POTASSIUM SERUM 4.9 mmol/L (3.5-5.1); SODIUM SERUM 140 mmol/L (136-145)
[2018-07-10 06:29] LABS: PLATELET COUNT 287 x10^3mcL (130-400)
[2018-07-10 06:34] LABS: BASOPHIL % 0 % (0-2); RED CELL DISTRIBUTION WIDTH 17.4 % (11.5-14.5)
[2018-07-10 09:23] VITALS: BP 106/42
[2018-07-10 12:45] VITALS: BP 110/43
[2018-07-10] MEDS ORDERED: MEDDP PO (14:19)
[2018-07-10] MEDS ORDERED: LEVAQUIN750 MG PO (14:20)
[2018-07-10] MEDS ORDERED: SINGULAIR4 MG/Packe PO (14:21)
== END 2018-07-10 18:54 | disposition home or self-care (01) | DRG 720 ==
LOC: ED 20:58 → MU 22:18 → DU 22:18 → MU 07-08 00:26 → DU 07-08 17:18
PROVIDERS: Emergency Medicine; Family Medicine
DX: A41.9 Sepsis, unspecified organism (principal); J96.00 Acute respiratory failure, unspecified whether with hypoxia or hypercapnia; E11.649 Type 2 diabetes mellitus with hypoglycemia without coma; E66.2 Morbid (severe) obesity with alveolar hypoventilation; E83.42 Hypomagnesemia; J44.1 Chronic obstructive pulmonary disease with (acute) exacerbation; I69.354 Hemiplegia and hemiparesis following cerebral infarction affecting left non-dominant side; J20.9 Acute bronchitis, unspecified; E78.5 Hyperlipidemia, unspecified; I10 Essential (primary) hypertension; D64.9 Anemia, unspecified; Z93.2 Ileostomy status; Z79.4 Long term (current) use of insulin; Z68.30 Body mass index [BMI] 30.0-30.9, adult; Z79.82 Long term (current) use of aspirin; Z79.01 Long term (current) use of anticoagulants; Z79.84 Long term (current) use of oral hypoglycemic drugs; Z86.718 Personal history of other venous thrombosis and embolism
CPT/HCPCS: 82962; 83880; J1100; J1956; J2270; J2405; J2550; J2920; J3475; J7030; J7620; J7626; Q0092

== ENCOUNTER 2018-08-20 11:29 | Inpatient (IN) | payer MEDICAID ==
[~2018-08-20] VITALS: Ht 162.6 cm; Wt 70.9 kg
[~2018-08-20 11:29] MED LIST changes: +HUMALOG100 UNIT/1 SQ; +SINGULAIR4 MG/Packe PO
[2018-08-20 11:35] VITALS: Ht 162.6 cm; Wt 70.9 kg
[2018-08-20] MEDS ORDERED: COUMADIN1 MG (11:50)
[2018-08-20 11:55] LABS: BASOPHIL % 0.7 % (0-2); PLATELET COUNT 212 x10^3mcL (130-400)
[2018-08-20 12:00] LABS: CALCIUM 8.7 mg/dL (8.5-10.1); CARBON DIOXIDE 25.3 mmol/L (21-32); CHLORIDE SERUM 104 mmol/L (98-107); CREATININE SERUM 0.9 mg/dL (0.6-1.0); GFR1 > 60 mL/min; GLUCOSE SERUM 211 mg/dL (74-106); POTASSIUM SERUM 3.9 mmol/L (3.5-5.1); SODIUM SERUM 139 mmol/L (136-145)
[2018-08-20 12:04] LABS: ALKALINE PHOSPHATASE 121 U/L (46-116); ALT/SGPT 10 U/L (14-59); AST/SGOT 18 U/L (15-37); BILIRUBIN TOTAL 0.28 mg/dL (0.20-1.00); RED CELL DISTRIBUTION WIDTH 18.7 % (11.5-14.5); TOTAL PROTEIN, SERUM 7.4 g/dL (6.4-8.2)
[2018-08-20 12:07] LABS: ALBUMIN 3.3 g/dL (3.4-5.0)
[2018-08-20 15:26] VITALS: BP 112/64
[2018-08-20 15:53] VITALS: BP 106/53
[2018-08-20 16:56] VITALS: BP 111/49
[2018-08-20 22:02] VITALS: BP 134/64
[2018-08-21 06:10] VITALS: BP 105/45
[2018-08-21 07:46] LABS: BASOPHIL % 0.2 % (0-2); PLATELET COUNT 182 x10^3mcL (130-400)
[2018-08-21 07:52] LABS: RED CELL DISTRIBUTION WIDTH 19.7 % (11.5-14.5)
[2018-08-21 08:03] LABS: CALCIUM 9.2 mg/dL (8.5-10.1); CARBON DIOXIDE 22.8 mmol/L (21-32); CHLORIDE SERUM 105 mmol/L (98-107); CREATININE SERUM 0.7 mg/dL (0.6-1.0); GFR1 > 60 mL/min; GLUCOSE SERUM 180 mg/dL (74-106); MAGNESIUM 1.8 mg/dL (1.8-2.4); POTASSIUM SERUM 4.6 mmol/L (3.5-5.1); SODIUM SERUM 138 mmol/L (136-145)
[2018-08-21 09:01] VITALS: BP 119/53
[2018-08-21 13:09] VITALS: BP 117/51
[2018-08-21 16:44] VITALS: BP 99/44
[2018-08-21 20:26] VITALS: BP 113/53
[2018-08-22 05:28] VITALS: BP 128/36
[2018-08-22 07:39] VITALS: BP 106/41
[2018-08-22] MEDS ORDERED: ZITHROMAX TRI-500 MG PO (09:36)
[2018-08-22] MEDS ORDERED: PRE20 PO (09:36)
[2018-08-22 13:04] VITALS: BP 106/41
== END 2018-08-22 14:20 | disposition home or self-care (01) | DRG 140 ==
LOC: ED 11:29 → DU 14:11
PROVIDERS: Emergency Medicine; ADMIT General Practice
DX: J44.1 Chronic obstructive pulmonary disease with (acute) exacerbation (principal); J96.00 Acute respiratory failure, unspecified whether with hypoxia or hypercapnia; E11.65 Type 2 diabetes mellitus with hyperglycemia; I10 Essential (primary) hypertension; E78.5 Hyperlipidemia, unspecified; M19.90 Unspecified osteoarthritis, unspecified site; Z93.3 Colostomy status; Z86.711 Personal history of pulmonary embolism; Z79.01 Long term (current) use of anticoagulants; Z79.84 Long term (current) use of oral hypoglycemic drugs; Z86.73 Personal history of transient ischemic attack (TIA), and cerebral infarction without residual deficits
CPT/HCPCS: 82962; 83880; 87046; 87046-59; 87804; C9113; J0696; J2270; J2930; J7030; J7620; J7626; J8597; Q0092

== ENCOUNTER 2018-08-23 22:01 | Inpatient (IN) | payer MEDICAID ==
[~2018-08-23] VITALS: Ht 160 cm; Wt 64.0 kg
[~2018-08-23 22:01] MED LIST changes: +COUMADIN1 MG; +PRE20 PO; +ZITHROMAX TRI-500 MG PO
[2018-08-23 22:40] LABS: PLATELET COUNT 283 x10^3mcL (130-400)
[2018-08-23 22:59] LABS: CALCIUM 8.6 mg/dL (8.5-10.1); CARBON DIOXIDE 27.5 mmol/L (21-32); POTASSIUM SERUM 3.9 mmol/L (3.5-5.1)
[2018-08-23 23:04] LABS: BILIRUBIN TOTAL 0.31 mg/dL (0.20-1.00); TOTAL PROTEIN, SERUM 7.3 g/dL (6.4-8.2)
[2018-08-23 23:12] LABS: ALBUMIN 3.3 g/dL (3.4-5.0)
[2018-08-23 23:54] VITALS: BP 116/73
[2018-08-24 00:57] VITALS: BP 125/68
[2018-08-24 04:50] LABS: PHOSPHOROUS 4.4 mg/dL (2.5-4.9)
[2018-08-24 04:53] LABS: CHOLESTEROL/HDL RATIO 1.9
[2018-08-24 05:16] VITALS: BP 110/67
[2018-08-24 09:21] VITALS: BP 118/58
[2018-08-24 13:34] VITALS: BP 116/64
[2018-08-24 17:01] VITALS: BP 132/63
[2018-08-24 17:08] LABS: microscopic required? NO
[2018-08-24 17:32] LABS: UA SPECIFIC GRAVITY 1.025 (1.005-1.035); urine erythrocyte NEGATIVE (NEGATIVE)
[2018-08-24 17:45] LABS: AMPHETAMINE QUAL UR NONE DETECTED (See below)
[2018-08-24 21:17] VITALS: BP 114/45
[2018-08-25 05:48] VITALS: BP 130/56
[2018-08-25 06:56] LABS: PLATELET COUNT 256 x10^3mcL (130-400)
[2018-08-25 07:32] LABS: BASOPHIL % 0 % (0-2); RED CELL DISTRIBUTION WIDTH 19.1 % (11.5-14.5)
[2018-08-25 07:37] LABS: CALCIUM 8.9 mg/dL (8.5-10.1); CARBON DIOXIDE 25.5 mmol/L (21-32); CHLORIDE SERUM 105 mmol/L (98-107); CREATININE SERUM 0.8 mg/dL (0.6-1.0); GFR1 > 60 mL/min; GLUCOSE SERUM 203 mg/dL (74-106); MAGNESIUM 2.2 mg/dL (1.8-2.4); PHOSPHOROUS 2.7 mg/dL (2.5-4.9); SODIUM SERUM 140 mmol/L (136-145)
[2018-08-25 09:43] VITALS: BP 113/67
[2018-08-25 13:19] VITALS: BP 138/43
[2018-08-25 14:41] VITALS: BP 138/43
== END 2018-08-25 17:31 | disposition home or self-care (01) | DRG 140 ==
LOC: ED 22:01 → DU 23:12 → MU 23:12 → DU 08-24 00:30
PROVIDERS: Emergency Medicine; ADMIT Internal Medicine
DX: J44.1 Chronic obstructive pulmonary disease with (acute) exacerbation (principal); J96.01 Acute respiratory failure with hypoxia; E11.65 Type 2 diabetes mellitus with hyperglycemia; E44.1 Mild protein-calorie malnutrition; I10 Essential (primary) hypertension; E78.00 Pure hypercholesterolemia, unspecified; E78.5 Hyperlipidemia, unspecified; Z93.3 Colostomy status; Z79.82 Long term (current) use of aspirin; Z79.4 Long term (current) use of insulin; Z68.25 Body mass index [BMI] 25.0-25.9, adult; Z86.711 Personal history of pulmonary embolism; Z87.891 Personal history of nicotine dependence; Z79.01 Long term (current) use of anticoagulants; Z79.84 Long term (current) use of oral hypoglycemic drugs; Z86.73 Personal history of transient ischemic attack (TIA), and cerebral infarction without residual deficits
CPT/HCPCS: 36600; 82962; 83880; 85378; 97110-GP; 97116-GP; 97530-GP; J1956; J2270; J2920; J7030; J7512; J7613; J7620; J7626; J7644; J8597; Q0092

== ENCOUNTER 2018-10-17 01:14 | Inpatient (IN) | payer MEDICAID ==
[~2018-10-17] VITALS: Ht 157.5 cm; Wt 68.0 kg
[2018-10-17 01:26] VITALS: Ht 157.5 cm; Wt 68.0 kg
[2018-10-17 02:11] LABS: CALCIUM 8.7 mg/dL (8.5-10.1); CARBON DIOXIDE 25.3 mmol/L (21-32); CHLORIDE SERUM 101 mmol/L (98-107); CREATININE SERUM 1.1 mg/dL (0.6-1.0); GFR1 53 mL/min; GLUCOSE SERUM 196 mg/dL (74-106); POTASSIUM SERUM 3.5 mmol/L (3.5-5.1); SODIUM SERUM 136 mmol/L (136-145)
[2018-10-17 02:12] LABS: BASOPHIL % 1.9 % (0-2); PLATELET COUNT 295 x10^3mcL (130-400)
[2018-10-17 02:16] LABS: ALBUMIN 3.4 g/dL (3.4-5.0); ALKALINE PHOSPHATASE 132 U/L (46-116); ALT/SGPT 24 U/L (14-59); AST/SGOT 22 U/L (15-37); BILIRUBIN TOTAL 0.28 mg/dL (0.20-1.00); TOTAL PROTEIN, SERUM 7.5 g/dL (6.4-8.2)
[2018-10-17 02:17] LABS: RED CELL DISTRIBUTION WIDTH 16.2 % (11.5-14.5)
[2018-10-17 02:25] LABS: CK-MB 2.5 ng/mL (0-3.6)
[2018-10-17 04:34] LABS: MAGNESIUM 1.5 mg/dL (1.8-2.4); PHOSPHOROUS 3.6 mg/dL (2.5-4.9)
[2018-10-17 04:39] LABS: T3 TOTAL 1.14 ng/mL
[2018-10-17 04:42] LABS: FREE T4 0.85 ng/dL (0.76-1.46); FREE THYROXINE INDEX 2.6 ug/dL (1.4-4.5); T4(THYROXINE) 7.8 ug/dL (4.7-13.3)
[2018-10-17 04:45] VITALS: BP 133/54
[2018-10-17 04:46] VITALS: BP 134/77
[2018-10-17 05:01] LABS: CHOLESTEROL 213 mg/dL (<200); CHOLESTEROL/HDL RATIO 7.1; HDL CHOLESTEROL 30 mg/dL (40-60); TRIGLYCERIDES 793 mg/dL (<150)
[2018-10-17 07:27] VITALS: BP 132/61
[2018-10-17 12:05] VITALS: BP 111/52
[2018-10-17 12:48] LABS: microscopic required? YES; urine erythrocyte NEGATIVE (NEGATIVE)
[2018-10-17 21:00] VITALS: BP 121/59
[2018-10-18 06:00] VITALS: BP 105/64
[2018-10-18 06:49] LABS: PLATELET COUNT 245 x10^3mcL (130-400)
[2018-10-18 07:20] LABS: BASOPHIL % 0 % (0-2); RED CELL DISTRIBUTION WIDTH 17.1 % (11.5-14.5)
[2018-10-18 07:27] LABS: CALCIUM 8.3 mg/dL (8.5-10.1); CARBON DIOXIDE 26.6 mmol/L (21-32); PHOSPHOROUS 2.9 mg/dL (2.5-4.9); POTASSIUM SERUM 4.5 mmol/L (3.5-5.1)
[2018-10-18 09:08] VITALS: BP 95/37
[2018-10-18 15:00] VITALS: BP 99/46
[2018-10-18 18:57] VITALS: BP 100/49
[2018-10-18 21:20] VITALS: BP 123/53
[2018-10-19 05:21] VITALS: BP 106/32
[2018-10-19 05:57] VITALS: BP 123/60
[2018-10-19 07:17] LABS: PLATELET COUNT 222 x10^3mcL (130-400)
[2018-10-19 07:18] LABS: BASOPHIL % 0 % (0-2); RED CELL DISTRIBUTION WIDTH 16.7 % (11.5-14.5)
[2018-10-19 07:36] LABS: CARBON DIOXIDE 28.3 mmol/L (21-32); CHLORIDE SERUM 109 mmol/L (98-107); CREATININE SERUM 0.9 mg/dL (0.6-1.0); GFR1 > 60 mL/min; GLUCOSE SERUM 210 mg/dL (74-106); POTASSIUM SERUM 4.3 mmol/L (3.5-5.1); SODIUM SERUM 143 mmol/L (136-145)
[2018-10-19 08:58] VITALS: BP 145/68
[2018-10-19] MEDS ORDERED: LEVAQUIN750 MG PO (08:59)
[2018-10-19 13:04] VITALS: BP 145/68
[2018-10-19 16:27] VITALS: BP 118/55
== END 2018-10-19 18:23 | disposition home or self-care (01) | DRG 133 ==
LOC: ED 01:14 → DU 03:59 → MU 10-18 11:10
PROVIDERS: Emergency Medicine; ADMIT Internal Medicine
DX: J96.00 Acute respiratory failure, unspecified whether with hypoxia or hypercapnia (principal); J18.9 Pneumonia, unspecified organism; J44.1 Chronic obstructive pulmonary disease with (acute) exacerbation; E11.65 Type 2 diabetes mellitus with hyperglycemia; G47.33 Obstructive sleep apnea (adult) (pediatric); G89.29 Other chronic pain; E78.5 Hyperlipidemia, unspecified; Z93.3 Colostomy status; Z68.29 Body mass index [BMI] 29.0-29.9, adult; Z87.891 Personal history of nicotine dependence; Z86.711 Personal history of pulmonary embolism; Z79.01 Long term (current) use of anticoagulants; Z79.84 Long term (current) use of oral hypoglycemic drugs; Z86.73 Personal history of transient ischemic attack (TIA), and cerebral infarction without residual deficits
CPT/HCPCS: 36600; 82962; 83880; 84439; 94150; J1815; J1956; J2270; J2405; J2920; J2930; J3475; J7030; J7620; J7626; Q0092

== ENCOUNTER 2018-10-31 23:58 | Inpatient (IN) | payer MEDICAID ==
[~2018-10-31] VITALS: Ht 157.5 cm; Wt 65.8 kg
[2018-11-01 00:01] VITALS: Ht 157.5 cm; Wt 65.8 kg
[2018-11-01 00:43] LABS: BASOPHIL % 0.8 % (0-2); PLATELET COUNT 303 x10^3mcL (130-400)
[2018-11-01 00:47] LABS: RED CELL DISTRIBUTION WIDTH 16.2 % (11.5-14.5)
[2018-11-01 00:58] LABS: CALCIUM 8.9 mg/dL (8.5-10.1); CARBON DIOXIDE 23.3 mmol/L (21-32); CHLORIDE SERUM 103 mmol/L (98-107); CREATININE SERUM 0.9 mg/dL (0.6-1.0); GFR1 > 60 mL/min; GLUCOSE SERUM 178 mg/dL (74-106); POTASSIUM SERUM 3.4 mmol/L (3.5-5.1); SODIUM SERUM 138 mmol/L (136-145)
[2018-11-01 01:03] LABS: ALKALINE PHOSPHATASE 115 U/L (46-116); ALT/SGPT 25 U/L (14-59); AST/SGOT 23 U/L (15-37); BILIRUBIN TOTAL 0.2 mg/dL (0.20-1.00); TOTAL PROTEIN, SERUM 7.1 g/dL (6.4-8.2)
[2018-11-01 01:06] LABS: ALBUMIN 3.3 g/dL (3.4-5.0)
[2018-11-01] MEDS ORDERED: COUMADIN1 MG PO (01:23)
[2018-11-01] MEDS ORDERED: METOCLOPRAMIDE H5 M1 PO (01:24)
[2018-11-01 03:57] VITALS: BP 114/60
[2018-11-01 04:00] VITALS: BP 114/60
[2018-11-01 04:36] LABS: CHOLESTEROL 168 mg/dL (<200); CHOLESTEROL/HDL RATIO 4.3; HDL CHOLESTEROL 39 mg/dL (40-60); MAGNESIUM 1.4 mg/dL (1.8-2.4); PHOSPHOROUS 2.8 mg/dL (2.5-4.9)
[2018-11-01 04:39] LABS: TRIGLYCERIDES 640 mg/dL (<150)
[2018-11-01 04:43] LABS: T3 TOTAL 0.73 ng/mL
[2018-11-01 04:44] LABS: FREE T4 0.87 ng/dL (0.76-1.46); FREE THYROXINE INDEX 2.7 ug/dL (1.4-4.5)
[2018-11-01 06:17] LABS: BASOPHIL % 0.1 % (0-2); PLATELET COUNT 250 x10^3mcL (130-400)
[2018-11-01 06:24] LABS: CALCIUM 8.4 mg/dL (8.5-10.1); CARBON DIOXIDE 20.1 mmol/L (21-32); CHLORIDE SERUM 104 mmol/L (98-107); CREATININE SERUM 0.9 mg/dL (0.6-1.0); GFR1 > 60 mL/min; GLUCOSE SERUM 218 mg/dL (74-106); POTASSIUM SERUM 3.8 mmol/L (3.5-5.1); SODIUM SERUM 139 mmol/L (136-145)
[2018-11-01 06:28] LABS: RED CELL DISTRIBUTION WIDTH 16.2 % (11.5-14.5)
[2018-11-01 09:13] VITALS: BP 119/47
[2018-11-01 12:48] VITALS: BP 105/42
[2018-11-01 13:25] LABS: microscopic required? NO
[2018-11-01 13:35] LABS: UA SPECIFIC GRAVITY 1.025 (1.005-1.035); urine erythrocyte NEGATIVE (NEGATIVE)
[2018-11-01 17:56] VITALS: BP 126/41
[2018-11-01 19:54] VITALS: BP 112/46
[2018-11-02 05:35] VITALS: BP 122/49
[2018-11-02 07:00] LABS: CALCIUM 8.9 mg/dL (8.5-10.1); CARBON DIOXIDE 26.5 mmol/L (21-32); CHLORIDE SERUM 105 mmol/L (98-107); CREATININE SERUM 0.8 mg/dL (0.6-1.0); GFR1 > 60 mL/min; GLUCOSE SERUM 168 mg/dL (74-106); POTASSIUM SERUM 4.6 mmol/L (3.5-5.1); SODIUM SERUM 141 mmol/L (136-145)
[2018-11-02 07:39] LABS: BASOPHIL % 0.1 % (0-2); PLATELET COUNT 263 x10^3mcL (130-400)
[2018-11-02 08:55] VITALS: BP 118/43
[2018-11-02 16:28] VITALS: BP 117/36
[2018-11-02 20:14] VITALS: BP 111/56
[2018-11-03 05:48] VITALS: BP 113/39
[2018-11-03 06:36] LABS: PLATELET COUNT 246 x10^3mcL (130-400)
[2018-11-03 06:42] LABS: CALCIUM 8.3 mg/dL (8.5-10.1); CARBON DIOXIDE 27.2 mmol/L (21-32); CHLORIDE SERUM 105 mmol/L (98-107); CREATININE SERUM 0.8 mg/dL (0.6-1.0); GFR1 > 60 mL/min; GLUCOSE SERUM 234 mg/dL (74-106); POTASSIUM SERUM 3.9 mmol/L (3.5-5.1); SODIUM SERUM 142 mmol/L (136-145)
[2018-11-03 07:32] LABS: BASOPHIL % 0 % (0-2); RED CELL DISTRIBUTION WIDTH 16.8 % (11.5-14.5)
[2018-11-03 07:50] VITALS: BP 141/54
[2018-11-03] MEDS ORDERED: PREDNISONE20 MG PO ×3 (11:33→11:36)
[2018-11-03] MEDS ORDERED: LEVOFLOXACIN500 M1 PO (11:37)
[2018-11-03 11:38] VITALS: BP 119/56
[2018-11-03] MEDS ORDERED: TRAMADOL HCL50 MG PO (11:41)
[2018-11-03 13:13] VITALS: BP 119/56
[2018-11-03] MEDS ORDERED: PRE20 PO (13:24)
== END 2018-11-03 16:37 | disposition home or self-care (01) | DRG 133 ==
LOC: ED 23:58 → DU 11-01 03:10
PROVIDERS: Emergency Medicine; Family Medicine; ADMIT Internal Medicine
DX: J96.00 Acute respiratory failure, unspecified whether with hypoxia or hypercapnia (principal); J12.9 Viral pneumonia, unspecified; E11.65 Type 2 diabetes mellitus with hyperglycemia; E44.1 Mild protein-calorie malnutrition; E87.2 Acidosis; Z99.81 Dependence on supplemental oxygen; J44.1 Chronic obstructive pulmonary disease with (acute) exacerbation; E87.6 Hypokalemia; I10 Essential (primary) hypertension; D72.829 Elevated white blood cell count, unspecified; E78.5 Hyperlipidemia, unspecified; Z93.3 Colostomy status; Z79.4 Long term (current) use of insulin; Z68.25 Body mass index [BMI] 25.0-25.9, adult; Z87.891 Personal history of nicotine dependence; Z86.711 Personal history of pulmonary embolism; Z79.01 Long term (current) use of anticoagulants; Z86.73 Personal history of transient ischemic attack (TIA), and cerebral infarction without residual deficits
CPT/HCPCS: 82962; 83880; 84439; 94150; 97530-GP; J1200; J1956; J2270; J2405; J2920; J2930; J7030; J7040; J7613; J7620; J7644; Q0092

== ENCOUNTER 2018-11-27 23:25 | Inpatient (IN) | payer MEDICAID ==
[~2018-11-27] VITALS: Ht 157.5 cm; Wt 64.0 kg
[~2018-11-27 23:25] MED LIST changes: +COUMADIN1 MG PO
--- NOTE | 2018-11-27 23:35 | NUR ---
PT BIB [facility] AND [facility] FOR RESPRITORY DISTRESS. PER MEDICS PT HAS BEEN HAVING DIFFICULTY BREATHING ALL DAY BUT GOT WORSE THE DAY WENT ON. PT LUNGS SOUNDS ARE TIGHT AND DIMINISHED WITH WHEEZES IN ALL SLAUGHTER. RESPIRATIONNS ARE LABORED. PT O2 SAT 98% ON NON-REBREATHER. DR. MYERS AT BEDSIDE FOR MSE. PT ON TRANSPORTATION LEAD. RT AT BEDSIDE.
[2018-11-28] VITALS (19 sets, daily range): BP systolic 78–112; BP diastolic 44–79
--- NOTE | 2018-11-28 00:05 | NUR ---
DR. MYERS MADE AWARE OF PT INCREASED WORK OF BREATHING AND THE POTENTIAL NEED TO INTUBATE.
--- NOTE | 2018-11-28 00:10 | NUR ---
DR MYERS AT BEDSIDE FOR INTUBATION ALONG WITH RT.
--- NOTE | 2018-11-28 00:11 | NUR ---
PT GIVEN 20 MG OF ETOMIDATE AND [address] MYERS VERBAL ORDER FOR RSI.
--- NOTE | 2018-11-28 00:14 | NUR ---
PT SUCCESFULLY INTUBATED WITH 7.5 CUFFED ET TUBE, 26 CM AT THE LIP. EQUAL BREATH SOUNDS IN ALL SLAUGHTER AND GOOD COLOR CHANGE ON THE CO2 DETECTOR. AWAITING X-RAY FOR COMFORMATION.
[2018-11-28 00:22] LABS: CALCIUM 9.4 mg/dL (8.5-10.1); CARBON DIOXIDE 21.2 mmol/L (21-32); CHLORIDE SERUM 101 mmol/L (98-107); CREATININE SERUM 0.8 mg/dL (0.6-1.0); GFR1 > 60 mL/min; GLUCOSE SERUM 164 mg/dL (74-106); POTASSIUM SERUM 4.6 mmol/L (3.5-5.1); SODIUM SERUM 134 mmol/L (136-145)
--- NOTE | 2018-11-28 00:23 | NUR ---
DIPRAVAN INITIATED FOR SEDATION OF PATIENT AT 10 MCG/KG/MIN
[2018-11-28 00:27] LABS: ALKALINE PHOSPHATASE 107 U/L (46-116); ALT/SGPT 29 U/L (14-59); AST/SGOT 29 U/L (15-37); BILIRUBIN TOTAL 0.6 mg/dL (0.20-1.00); CHOLESTEROL 186 mg/dL (<200); HDL CHOLESTEROL 50 mg/dL (40-60); TOTAL PROTEIN, SERUM 7.2 g/dL (6.4-8.2)
[2018-11-28 00:28] LABS: ALBUMIN 3.2 g/dL (3.4-5.0)
--- NOTE | 2018-11-28 00:33 | NUR ---
PT STILL AGITATED RSS SCORE OF 1. DIPRAVAN TITRATED TO 20 MCG/KG/MIN.
--- NOTE | 2018-11-28 00:43 | NUR ---
PT STILL AGITATED RSS SCORE OF 1. DIPRAVAN TITRATED TO 30 MCG/KG/MIN.
--- NOTE | 2018-11-28 00:53 | NUR ---
PT STILL CALMING DOWN BUT BITTING THE ET TUBE RSS SCORE 2. DIPRAVAN TITRATED TO 40 MCG/KG/MIN.
[2018-11-28 00:58] LABS: BASOPHIL % 0.4 % (0-2); PLATELET COUNT 260 x10^3mcL (130-400)
[2018-11-28 01:02] LABS: RED CELL DISTRIBUTION WIDTH 16.6 % (11.5-14.5)
--- NOTE | 2018-11-28 01:02 | NUR ---
[facility] MY[facility] RATE CHANGED TO 16 O2 40%
--- NOTE | 2018-11-28 01:03 | NUR ---
PT RSS SCORE 2. PT CALM BUT STILL BITING ON THE TUBE. DIPRAVAN TITRATED TO 50 MCG/KG/MIN.
--- NOTE | 2018-11-28 01:22 | NUR ---
ET TUBE RETRACTED FROM 27CM AT LIP TO 23CM AT LIP PER ORDERS POST XRAY RESULTS.
--- NOTE | 2018-11-28 01:22 | NUR ---
RT AT BEDSIDE TO MOVE PT ET TUBE FROM 26 CM AT THE LIP TO 23 CM AT THE LIP PER DR. MYERS.
--- NOTE | 2018-11-28 02:00 | NUR ---
FENTANYL DRIP INITIATED AT 1 MCG/KG/MIN OR 6.8 ML. PT DIPRIVAN TITRATED DOWN TO 10 MCG/KG/MIN. PT RSS SCORE 4.
[2018-11-28 02:09] LABS: MAGNESIUM 1.5 mg/dL (1.8-2.4); PHOSPHOROUS 4.5 mg/dL (2.5-4.9)
--- NOTE | 2018-11-28 02:10 | NUR ---
PT RSS SCORE 2. DIPRIVAN TITRATED TO 30 MCG/KG/MIN.
[2018-11-28 02:19] LABS: T3 TOTAL 1.43 ng/mL
[2018-11-28 02:20] LABS: FREE T4 1.02 ng/dL (0.76-1.46); FREE THYROXINE INDEX 2.7 ug/dL (1.4-4.5); T4(THYROXINE) 8.2 ug/dL (4.7-13.3)
--- NOTE | 2018-11-28 02:20 | NUR ---
PT RSS SCORE 4
[2018-11-28] MEDS ORDERED: NORCO1 TA2 (02:48)
--- NOTE | 2018-11-28 03:25 | NUR ---
REPORT GIVEN TO ANDREZ IN ICU FOR CONTINUATION OF CARE.
--- NOTE | 2018-11-28 03:27 | NUR ---
REC'D PT FROM ER VIA JYOTSNA ACCOMPANIED BY JULIANN RN, EMT, AND RT. PT INTUBATED AND SEDATED ON FENTANYL 1 MCG/KG/HR, PROPOFOL 50 MCG/KG/MIN WITH RSS 4. PERRLA NOTED. 7.5 ETT SECURED 23 CM @ LL. NO JVD NOTED. TRACHEA MIDLINE. OGT INTACT AND SECURED. ETT TO VENT: AC MODE RATE 16, TV 500, PEEP 5, FIO2 40%. CHEST RISE EQUAL AND SYMMETRICAL. LUNG SOUNDS CRACKLES/WHEEZES BUL, DIM BASES. SHIP STEWARD IN PLACE SHOWING ST WITH HR 116. CHEST WALL STABLE. ABD ROUND, SOFT NONTENDER TO TOUCH. COLOSTOMY BAG TO RLQ IN PLACE, UNFORMED SOFT BROWN STOOL NOTED, STOMA APPEARS PINK. F/C INTACT AND PATENT DRAINING VIA GRAVITY YELLOW URINE. IV TO R HAND G 22, L AC G 22 INTACT AND PATENT, IVF NS INFUSING @ 150M/HR. BUE SOFT WRIST RESTRAINTS IN PLACE FOR PT SAFETY. TURNED AND REPOSITIONED Q2H FOR PRESSURE RELIEF. KEPT CLEAN AND DRY. JULIAN DAUGHTER CALLED AT THIS TIME AND MADE AWARE REGARDING ADMISSION TO ICU 3 AND UPDATED ON STATUS, VERBALIZED UNDERSTANDING. WILL CONTINUE TO MONITOR.
--- NOTE | 2018-11-28 03:29 | NUR ---
PATIENT TRANSFERED FROM ER TO ICU BED 3 ON VENTILATOR WITHOUT INCIDENT.
[2018-11-28 04:11] LABS: CALCIUM 8.6 mg/dL (8.5-10.1); CARBON DIOXIDE 18.1 mmol/L (21-32); MAGNESIUM 1.4 mg/dL (1.8-2.4)
--- NOTE | 2018-11-28 04:30 | NUR ---
PROPOFOL TITRATED TO 40 MCG/KG/MIN, RSS=5 AT THIS TIME.
[2018-11-28 04:37] LABS: BASOPHIL % 0.1 % (0-2); PLATELET COUNT 227 x10^3mcL (130-400)
--- NOTE | 2018-11-28 04:38 | NUR ---
LACTIC ACID 4.5, TRENDING UP, REPORTED TO DR CAREY.
[2018-11-28 04:41] LABS: RED CELL DISTRIBUTION WIDTH 15.8 % (11.5-14.5)
--- NOTE | 2018-11-28 04:45 | NUR ---
PROPOFOL TITRATED TO 30 MCG/KG/MIN, RSS=5, MAP=60.
[2018-11-28 04:54] LABS: microscopic required? YES
[2018-11-28 04:55] LABS: urine erythrocyte 2+ (NEGATIVE)
--- NOTE | 2018-11-28 05:50 | NUR ---
PARTIAL BED BATH PROVIDED, NO BM NOTED. F/C CARE PROVIDED, VAP CARE PROVIDED. PT REPOSITIONED AT THIS TIME.
--- NOTE | 2018-11-28 06:14 | NUR ---
BP 80/52 MAP 63, PROPOFOL 20 MCG/KG/MIN.
--- NOTE | 2018-11-28 08:46 | NUR ---
CXR AT BEDSIDE.
--- NOTE | 2018-11-28 09:00 | NUR ---
STARTED TUBE FEEDING VITAL AF 1.2 AT 10ML/HR FWF 50ML Q4HRS PER ORDER, NO RESIDUALS NOTED PRIOR TO STARTING TUBE FEED.
--- NOTE | 2018-11-28 09:18 | NUR ---
PER VERSED PROTOCOL TO BOLUS 2MG/HR AND START INFUSION AT 1MG/HR. VERSED SET AT 1MG/HR.
--- NOTE | 2018-11-28 09:40 | NUR ---
DR. WALTER, RESIDENTS, PRIMARY RN AND SENIOR TAX ACCOUNTANT AT BEDSIDE FOR ROUNDING. UPDATES PROVIDED AND ALL QUESTIONS ADDRESSED.
--- NOTE | 2018-11-28 10:23 | NUR ---
KOTA ACOSTA AT BEDSIDE COLLECTING ABG.
--- NOTE | 2018-11-28 11:00 | NUR ---
PT SEEN GRABBING SIDES OF BED AND ATTEMPTING TO ROLL OUT OF BED. VERSED TITRATED FROM 1 MG/HR TO 2 MG/HR
--- NOTE | 2018-11-28 11:38 | NUR ---
RETA RT LOWERED FIO2 FROM 40% TO FIO2 30%, PT TOLERATING WELL.
--- NOTE | 2018-11-28 11:53 | NUR ---
Discount pharmacy card and list to low cost medical clinics given to patient by Jill.
--- NOTE | 2018-11-28 13:22 | NUR ---
LACTIC 3.8, DR. SPAIN MADE AWARE
--- NOTE | 2018-11-28 13:30 | NUR ---
B/P 94/54 MAP 69 HR 70, LOWERED VERSED FROM 2MG/HR TO 1MG/HR TO ACHIVE MAP ABOVE 65.
--- NOTE | 2018-11-28 15:30 | NUR ---
RSS 3 INCREASED VERSED TO 2MG/HR TO ACHIEVE RSS4.
--- NOTE | 2018-11-28 16:00 | NUR ---
COLOSTOMY BAG EMPITED OUT UNFOREMD BM 150ML WITH PROPER TECHNIQUES, NO SIGNS OF SKIN BREAKDOWN TO OSTOMY SITE.
--- NOTE | 2018-11-28 16:07 | NUR ---
LACTIC ACID 4.2. DR. SPAIN MADE AWARE
--- NOTE | 2018-11-28 17:44 | NUR ---
RECOMMENDED CHANAGE OF ABX RELATED TO ELEVATED ABX TO DR. SPAIN. RECIEVED NO NEW ORDERS.
--- NOTE | 2018-11-28 19:54 | NUR ---
TITRATED VERSED FROM 2MG TO 3MG PER PT AGITATED. PT TOLERATED WELL. WILL CONT TO MONITOR.
--- NOTE | 2018-11-28 21:00 | NUR ---
PER PT AGITATION TITRATED VERSED FROM 3MG TO 5MG TO MAINTAIN BP > 65 AND HELP PT RELEAVE AGITATION. WILL CONT TO MONITOR.
--- NOTE | 2018-11-28 21:47 | NUR ---
SHANI @ BEDSIDE SYLVIA ERICKSON
--- NOTE | 2018-11-28 21:48 | NUR ---
PT C/O PAIN TO RIGHT LOWER BACK. INCREASED FENT FROM 2MCG TO 4MCG. PT TOLERATED WELL WILL CONT TO MONITOR.
--- NOTE | 2018-11-28 22:00 | NUR ---
20G IV INSERTED INTO RIGHT WRIST AT THIS TIME. FLUSHED WITH 10 ML NS, NO S/S OF INFILTRATION, PT TOLERATED WELL.
--- NOTE | 2018-11-28 22:30 | NUR ---
FENTANYL TITRATED FROM 4MCG TO 3MCG PER PT RESTING COMFORTABLY AND NO S/S OF ACUTE DISTRESS. WILL CONT TO MONITOR. VS WNL.
--- NOTE | 2018-11-28 23:10 | NUR ---
TITRATED FENT FROM 4MCG TO 2MCG PER PT RESTING CALMLY IN BED. TITRATED VERSED FROM 5MG TO 2MG PER PT MAP < 65. BP MAP > 65 AFTER TITRATION. WILL CONT TO MONITOR.
[2018-11-29] VITALS (12 sets, daily range): BP systolic 89–122; BP diastolic 40–75
--- NOTE | 2018-11-29 02:02 | NUR ---
TITRATED VERSED FROM 2 MG/HR TO 1 MG/HR FOR DECREASED BP OF 89/45 (61), AND HR OF 65.
--- NOTE | 2018-11-29 02:29 | NUR ---
TITRATED FENTANYL FROM 2 MCG/KG/HR TO 1 MCG/KG/HR FOR BP OF 91/45 (61).
--- NOTE | 2018-11-29 03:08 | NUR ---
TITRATED VERSED FROM 2 MG/HR TO 1 MG/HR FOR INCREASED AGITATION.
[2018-11-29 05:14] LABS: BASOPHIL % 0.2 % (0-2); PLATELET COUNT 200 x10^3mcL (130-400)
[2018-11-29 05:21] LABS: CALCIUM 8.2 mg/dL (8.5-10.1); CARBON DIOXIDE 22.8 mmol/L (21-32); CHLORIDE SERUM 104 mmol/L (98-107); CREATININE SERUM 0.8 mg/dL (0.6-1.0); GFR1 > 60 mL/min; GLUCOSE SERUM 273 mg/dL (74-106); PHOSPHOROUS 2.7 mg/dL (2.5-4.9); POTASSIUM SERUM 4.2 mmol/L (3.5-5.1); SODIUM SERUM 138 mmol/L (136-145)
[2018-11-29 05:30] LABS: RED CELL DISTRIBUTION WIDTH 16.9 % (11.5-14.5)
--- NOTE | 2018-11-29 07:15 | NUR ---
PT IS ATTEMPTING TO PULL ETT, INCREASED VERSED TO 2MG/HR TO ACHIEVE RSS4.
--- NOTE | 2018-11-29 07:33 | NUR ---
REPORT GIVEN TO KAILYN AGUILERA. ALL CONCERNS ADDRESSED.
--- NOTE | 2018-11-29 08:00 | NUR ---
DR. JACKSON AT BEDSIDE ASSESSING PT, PROVIDED PT STATUS UPDATE. PER DR. JACKSON TO PUT PT ON CPAP, TOLERATING CPAP WELL. TUBE FEED OFF.
--- NOTE | 2018-11-29 10:10 | NUR ---
PT ON CPAP TOLERATING WELL, LOWERED VERSED TO 1MG/HR AND FEANTANYL 1MCG/KG/MIN TO ACHIEVE RSS4.
--- NOTE | 2018-11-29 11:20 | NUR ---
Initial Nutrition Assessment- IC03/A NATASHA MENDOZA HR IA Dx: Acute respiratory failure, COPD PMHx: HTN, DM, CVA, COPD, hyperlipidemia, chronic pain PSHx: Cholecystectomy, Hernia Repair, colostomy Labs: (11/29) BG 237H, (11/27) A1C 6.9H Meds: D50, Humulin, Lipitor, Pepcid, zofran TF Regimen: Vital AF 1.2 @ 10ml/hr, goal 40ml/hr, FWF 50ml Q4H TF Intake: (11/28-11/29) 518 ml Ht: 157.48 cm (62") Wt: 63.5 kg (140#) BMI: 25.6 kg/m2 (overweight) IBW: 110# (50kg) %IBW: 127 UBW: unable to access Age: 63/F Food Allergies: NKFA Skin: intact Brandan: 14 Edema: none GI: colostomy Per H&P, Patient is a 63 year old female with PMH of HTN, DM, CVA, COPD, hyperlipidemia, chronic pain was brought in by ambulance from home with shortness of breath for one day. Pt on vent, sedated. RDN visit(11/29): Spoke with RN Min. Pt is tolerating Vital AF 1.2 with minimal residuals <10ml. Currently TF is stopped as it is an OGT and pt is undergoing CPAP procedure. Pt does not have any N/V at this time. Problem with: N: no V: no D/C: colostomy intact Problems with: Chewing/Swallowing: OGT at this time Current appetite: unable to access as pt is sedated Recent wt change: unable to access as pt is sedated Vitamin/Supplement use: unable to access as pt is sedated Special diet at home: unable to access as pt is sedated Physical activity: unable to access as pt is sedated Education: Pt is sedated and there was no family at bedside therefore Diabetes diet education was not provided at this time, will be attempted in a F/U visit. Estimated Nutritional Needs Based on actual body weight 63.5 kg Energy: 8809-0462 kcal/d (25-30 kcal/kg- COPD) Protein: 51-63 (0.8-1.0g/kg)-maintenance and preservation of lean body mass Fluid: 6705-0930 ml/d (1 ml/kcal-fluid balance) or per doctor Nutrition Diagnosis 1. Altered nutrition related lab values related to endocrine dysfunction as evidenced by BG 237, A1C 6.9. 2. Inadequate enteral nutrition infusion related to current rate of 40ml/hr as evidenced by pt meeting <75% of estimated calorie and protein needs. Intervention 1. Recommend increasing Vital AF 1.2 @ 50ml/hr. FWF 50ml Q4H. This provides 1400 kcal, 90g protein, 970 ml free water. This would meet >75% estimated calorie and protein needs. Monitor/Evaluate Goal: TF intake at least 75% of estimated needs Monitor: TF intake/tolerance, Labs, GI function F/U in 2-3 days as high risk 5/4-5/5
--- NOTE | 2018-11-29 11:55 | NUR ---
DORIE RT AT BEDSIDE PROVIDING A BREATHING TX, PT TOLERATING WELL.
--- NOTE | 2018-11-29 12:25 | NUR ---
SPOKE WITH DR JACKSON AND REPORTED MOST RECENT ABG'S AND WEANING PARAMETERS. NIF: 38 AND RSBI 33. NEW ORDERS RECEIVED TO EXTUBATE PATIENT.
--- NOTE | 2018-11-29 12:50 | NUR ---
DORIE RT, MYSELF AND ELODIA RN AT BEDSIDE FOR EXTUBATION. ALL SEDATION TITRATED OFF. PATIENT EXTUBATED AT HIS TIME AND PLACED ON NASAL CANNULA 3 LPM. PATIENT TOLERATED WELL. VITALS BP 103/58, MAP 70, RR 15, HR 93, SPO2 98%. WILL MONITOR PATIENT CLOSELY.
--- NOTE | 2018-11-29 15:20 | NUR ---
PT'S BL ARMS ARE RED AND PT IS SCRATCHING THE ITCH TO BL UPPER ARMS. PAGED DR. DAVENPORT.
--- NOTE | 2018-11-29 17:23 | NUR ---
SWALLOW SCREEN AT BEDSIDE PT WAS ABLE TO TOLERATE ICE CHIPS, APPLE SAUCE, CHOCOLATE PUDDING, JELLO AND WATER. NO SIGNS OF ASPIRATIONS. PT WAS SITTING AT 90 DEGREE DURING SCREENING.
--- NOTE | 2018-11-29 19:15 | NUR ---
RECIEVED REPORT FROM RN MIN. RESUMED CARE OF PT. A&OX3. ALERT TO PERSON/PLACE. LUNG SOUNDS W/ FINE CRACKLES BILATERAL LUNG SLAUGHTER. PT ON RA NO S/S OF SOB. PULSES PALPABLE. NO EDMEA. NSR. SKIN INTACT W/ COLOSTOMY RLQ W/ BEEFY RED STOMA. BS ACTIVE. RH IV AND LAC IV PATENT. F/C SECURE W/ STRAW YELLOW URINE. DENIES PAIN.
--- NOTE | 2018-11-29 19:50 | NUR ---
COLOSTOMY BAG EMPTIED W/ 100CC BROWN LIQUID. STOMA BEEFY RED. NO S/S OF INFECTION. PT TOLERATED WELL. WILL CONT TO MONITOR.
--- NOTE | 2018-11-29 20:00 | NUR ---
SWALLOW ASSESSMENT DONE. PT TOLERATED VERY WELL. NO S/S OF CHOKING/REGURG/POCKETING/COUGHING. PT STATED WANTING TO EAT MORE. NOTIFED MD FOR DIET ORDER.
--- NOTE | 2018-11-29 20:15 | NUR ---
PT W/ FULL LIQUID DIET. PT GIVEN APPLESAUCE AND PUDDING. PT TOLERATED WELL AND SAID SHE WAS SO HUNGRY.
--- NOTE | 2018-11-29 22:42 | NUR ---
EMPTIED COLOSYOMY BAG W/ 350CC OF BROWN UNFORMED BM. PT TOLERATED WELL. CLEANED AND BAG. STOMA BEEFY RED. WILL CONT TO MONITOR.
--- NOTE | 2018-11-30 02:12 | NUR ---
PT RESTING COMFORTABLY IN BED W/ BIPAP IN PLACE. NO ACUTE CHANGES. WILL CONT TO MONITOR.
[2018-11-30 03:06] VITALS: BP 116/63
--- NOTE | 2018-11-30 03:54 | NUR ---
RT MCDUFFIE @ BEDSIDE FOR BREATHING TX.
--- NOTE | 2018-11-30 04:35 | NUR ---
ATTEMPTED TO CLEAN PT AND PT REFUSED. PT IN SEVERE BACK PAIN STATING PAIN IS A 10/10. ADMIN PRN ULTRAM (*SEE MAR*) FOR SEVERE PAIN. LINENS CLEANED W/ NEW WARM SHEET ADDED. PROVIDED COMFORT MEASURES AND CALMING ENVIRONMENT.
[2018-11-30 05:26] LABS: BASOPHIL % 0.2 % (0-2); PLATELET COUNT 202 x10^3mcL (130-400)
[2018-11-30 05:29] LABS: RED CELL DISTRIBUTION WIDTH 17.4 % (11.5-14.5)
[2018-11-30 05:39] LABS: CALCIUM 8.3 mg/dL (8.5-10.1); CARBON DIOXIDE 24.4 mmol/L (21-32); CHLORIDE SERUM 108 mmol/L (98-107); CREATININE SERUM 0.7 mg/dL (0.6-1.0); GFR1 > 60 mL/min; GLUCOSE SERUM 215 mg/dL (74-106); MAGNESIUM 1.9 mg/dL (1.8-2.4); PHOSPHOROUS 2.9 mg/dL (2.5-4.9); POTASSIUM SERUM 3.8 mmol/L (3.5-5.1); SODIUM SERUM 142 mmol/L (136-145)
--- NOTE | 2018-11-30 07:00 | NUR ---
REPORT RCD FROM KAILYN URIBE. PATIENT AWAKE, ALERT, NO DISTRESS NOTED. PATIENT ON BIPAP OVERNIGHT 10/01/21, 30% FIO2 O2 SAT 100%. NS 50 ML/HR TO LAC. SALINE LOCK TO RIGHT HAND. NOLAN IN PLACE DRAINING YELLOW URINE TO GRAVITY. COLOSTOMY BAG IN PLACE TO RLQ WITH SMALL AMOUNT OF BROWN FECAL MATTER, OSTOMY BEEFY RED. ECCHYMOSES NOTED TO BUE. WILL MONITOR.
[2018-11-30 08:00] VITALS: BP 145/67
--- NOTE | 2018-11-30 08:00 | NUR ---
SHIFT ASSESSMENT PERFORMED AND DOCUMENTED. PATIENT TOLERATING NASAL CANNULA 3L, O2 SAT 97%, DENIES SHORTNESS OF BREATH. PATIENT REPORTS HISTORY OF STROKE, REPORTS WEAKNESS OF LLE AND SHE USES WHEELCHAIR AT HOME. PATIENT REPORTS PAIN TO BACK, CHRONIC. WILL MEDICATE PER SEP. ASSISTED WITH BREAKFAST SET UP.
--- NOTE | 2018-11-30 08:23 | NUR ---
PATIENT GIVEN TYLENOL PER MAR FOR COMPLAINT OF BACK PAIN. ASSISTED WITH REPOSITIONING.
--- NOTE | 2018-11-30 09:27 | NUR ---
SPOKE WITH DR. DAVENPORT WARFARIN MEDICATION FOUND IN PATIENT BELONGINGS. PATIENT STATES SHE HAD BLOOD CLOT IN LUNG EARLIER THIS YEAR AND WENT TO [facility] AND WAS STARTED ON WARFARIN AND WAS ADVISED SHE NEEDS TO CONTINUE MEDICATION. MEDICAL RECORDS TO BE REQUESTED.
--- NOTE | 2018-11-30 09:49 | NUR ---
RCD CALL FROM PHARMACY THAT PATIENT HAS ALLERGY ON FILE TO IBUPROFEN AND TORADOL CAN NOT BE USED. TALKED TO PATIENT WHO STATES SHE HAS NO ALLERGIES TO MEDICATIONS BUT HER DOCTOR TOLD HER IBUPROFEN WAS NOT GOOD FOR HER BECAUSE OF STOMACH PROBLEMS. DR. GOMEZ INFORMED AND WILL REVIEW. ROUNDS WITH DR. WALTER AND MEDICAL TEAM. PAIN CONTROL DISCUSSED.
--- NOTE | 2018-11-30 10:23 | NUR ---
PATIENT GIVEN TORADOL FOR PAIN PER MD ORDERS. ALSO GIVEN ZOFRAN FOR COMPLAINT OF NAUSEA WITHOUT VOMITING. PROVIDED WITH EMESIS BAG. PERFORMED BISHOP CARE. PATIENT REPORTS NO OTHER NEEDS AT THIS TIME.
--- NOTE | 2018-11-30 12:25 | NUR ---
SHIFT ASSESSMENT PERFORMED AND DOCUMENTED. LEVAQUIN INFUSING PER MAR TO LAC. NC 3L, O2 SAT 98%. PATIENT DENIES SHORTNESS OF BREATH. NOLAN IN PLACE DRAINING YELLOW URINE TO GRAVITY. COLOSTOMY IN PLACE WITH LIQUID STOOL, BROWN, IN COLLECTION BAG. PATIENT REPOSITIONED FOR COMFORT. WILL MONITOR.
[2018-11-30 12:36] VITALS: BP 124/54
--- NOTE | 2018-11-30 14:13 | NUR ---
REPORT GIVEN TO KAILYN EUGENE ON [address] [place]. PATIENT BEING TRANSFERRED TO [facility]. PATIENT PLACED ON TELE 21, PORTABLE O2 AT 3L AND TRANSFERRED TO [facility] BED FOR TRANSPORT. PATIENT IN NO ACUTE DISTRESS, VITAL SIGNS STABLE.
--- NOTE | 2018-11-30 14:30 | NUR ---
RECIEVED PT. FROM ICU VIA BED,AWAKE,ALERT AND ABLE TO VERBALIZED NEEDS,CALL LIGHT W/ IN REACH.REQUIRES. MOD. ASSIST. W/ ADL NEEDS.NOLAN CATH. PATENT AND DRAINING YELLOW COLOR URINE.DENIES ANY PAIN AT THIS TIME. 02 AT 2 L N/C ON NO ACUTE RESP. DISTRESS NOTED.WILL CONT. PLAN OF CARE.
--- NOTE | 2018-11-30 14:53 | NUR ---
DR. SPAIN PAGED AND RETURN CALL MADE AWARE OF [facility] RESULTS +E.COLI, ESBL, AND MDRO OF URINE. NOTIFIED THAT LEVAQUIN WAS RESISTANT AND PT NEEDED ATB TO BE CHANGED. TO REVIEW SENSATIVITY RESULTS.
[2018-11-30 14:54] VITALS: Ht 157.5 cm; Wt 64.0 kg
--- NOTE | 2018-11-30 15:55 | NUR ---
PHYSICAL THERAPY NOTE PATIENT REPORTS INCREASE IN OVERALL FATIGUE SECONDARY PATIENT WAS JUST SENT TO THE FLOORS. FAMILY PRESENT AND REQUESTED TO HOLD EVAL AND TREATMENT TILL TOMORROW. NURSING AWARE.
[2018-11-30 17:42] VITALS: BP 135/49
[2018-11-30 19:48] VITALS: BP 136/61
--- NOTE | 2018-11-30 20:02 | NUR ---
RECEIVED PT IN BED, AWAKE , ALERT AND ORIENTED. ABLE TO VERBALIZE NEEDS.DENIES PAIN OR ANY DISCOMFORT AT THIS TIME.RESP. EVEN AND UNLABORED, 02 AT 2L/MIN VIA NC, SAT 97%. NO ACUTE DISTRESS NOTED. SR ON THE MONITOR, DENIES CP. IVF, NS AT 50ML/HR, INTACT AND INFUSING VIA LAC, HL TO RH , INTACT AND PATENT, SITES CLEAR. NOLAN CATH INTACT AND DRAINING YELLOW COLOR URINE. RLQ COLOSTOMY , INTACT AND PATENT. ASSISTED WITH HS CARE. CALL LIGHT WITHIN REACH. WILL CONTINUE TO MONITOR.
--- NOTE | 2018-11-30 22:45 | NUR ---
COMPLAINED OF GEN. BODY PAIN, 01/07, MEDICATED WITH TORADOL IV ORDERED.WILL CONTINUE TO MONITOR.
--- NOTE | 2018-12-01 01:07 | NUR ---
EYES CLOSED, APPEARS ASLEEP, EASILY AROUSABLE. ON BIPA MACHINE FOR RESP. SUPPORT AT THIS TIME. ANN. WELL . NO ACUTE DISTRESS NOTED. WILL CONTINUE TO MONITOR.
--- NOTE | 2018-12-01 03:10 | NUR ---
SUZETTE, COMPLAINING OF GEN. BODY PAIN, 12/07 REQUESTING PAIN MED, MEDICATED WITH ULTRAM ORDERED. WILL CONTINUE TO MONITOR.
[2018-12-01 05:16] VITALS: BP 149/76
--- NOTE | 2018-12-01 06:02 | NUR ---
RESP. EVEN AND UNLABORED. [address] VIA OK AT THIS TIME. SAT. WELL. DENIES SOB. NO ACUTE DISTRESS NOTED. AFEBRILE AND VITAL SIGNS STABLE. DUE MEDS GIVEN ORDERED, ANN. WELL. IVF INTACT AND INFUSING WELL, SITE CLEAR. COLOSTOMY BAG INTACT AND SOFT STOOL NOTED. NOLAN CATH INTACT AND DRAINING YELLOW COLOR URINE.CONTACT ISOLATION PREC. MAINTAINED.KEPT COMFORTABLE AND ALL NEEDS ATTENDED TO. CALL LIGHT WITHIN REACH. WILL CONTINUE TO MONITOR.
[2018-12-01 07:04] LABS: CALCIUM 7.8 mg/dL (8.5-10.1); CARBON DIOXIDE 27.1 mmol/L (21-32); CHLORIDE SERUM 106 mmol/L (98-107); CREATININE SERUM 0.8 mg/dL (0.6-1.0); GFR1 > 60 mL/min; GLUCOSE SERUM 174 mg/dL (74-106); MAGNESIUM 1.7 mg/dL (1.8-2.4); PHOSPHOROUS 2.8 mg/dL (2.5-4.9); POTASSIUM SERUM 3.9 mmol/L (3.5-5.1); SODIUM SERUM 139 mmol/L (136-145)
--- NOTE | 2018-12-01 07:55 | NUR ---
AWAKE,ALERT W/ PERIODS OF CONFUSION AND FORGETFULNESS,TOTAL CARE RENDRED. TURN AND REPOSITION Q 2 HRS FOR COMFORT.NOLAN CATH PATENT AND DRAINING YELLOW COLOR URINE,CALL LIGHT W/ IN REACH. NO ACUTE RESP. DISTRESS NOTED. CONT 02 AT 2 L N/C ON HHN TX. GIVEN W/ R.T WILL CONT. PLAN OF CARE.
[2018-12-01 08:08] LABS: BASOPHIL % 0.4 % (0-2); PLATELET COUNT 222 x10^3mcL (130-400)
[2018-12-01 08:09] VITALS: BP 140/64
[2018-12-01 08:09] LABS: RED CELL DISTRIBUTION WIDTH 16.7 % (11.5-14.5)
[2018-12-01 09:40] VITALS: BP 140/64
--- NOTE | 2018-12-01 12:00 | NUR ---
PT. AMBULATED IN THE BATHROOM AND WASH HERSELF THEN AFTER 15 MINUTES PT C/O SOB PUT ON 02 AT 2 L N/C AND PAGE R.T FOR HER BREATHING TREATMENT,R.T AT BEDSIDE FOR HHN TX NOTED PT CRYING AND STATED STILL CAN NOT BREATH HOB ELEVATED 45 DEGREE ,V/S TAKEN AND RECORDED WAS STABLE. MADE PT. COMFORTABLE IN BED. CALL LIGHT W/ IN REACH.WILL CONT. TO MONITOR PT.
--- NOTE | 2018-12-01 12:20 | NUR ---
PT. NOTED HAVING ANXITEY ATTACK .DR BESS HERE AND NOTIFIED REGARDING PT. CONDITION SOB AND HAVING ANXIETY,DR DA SILVA SEEN THE PT. AND MADE AWARE OF PT. CONDITION.
[2018-12-01 12:43] VITALS: BP 165/66
--- NOTE | 2018-12-01 12:45 | NUR ---
PT. C/O GEN. BODY ACHE ULTRAM GIVEN ORDERED.MADE COMFORTABLE IN BED CALL LIGHT W/ IN REACH.
[2018-12-01 16:45] VITALS: BP 126/70
--- NOTE | 2018-12-01 18:42 | NUR ---
PT. C/O GEN. BODY PAIN TORADOL GIVEN ORDERED FOR PAIN MADE COMFORTABLE IN BED.CALL LIGHT W/ IN REACH.
--- NOTE | 2018-12-01 19:54 | NUR ---
RECEIVED PT FROM PREVIOUS SHIFT NURSE. AAO. CONTACT ISOLATION IN PLACE. FAMILY AT BEDSIDE. PT DENIES HEADACHE/DIZZINESS. HOB ELEVATED, BREATHING E/U ON 2L OXYGEN NC, DENIES SOB. DENIES CP. COLOSTOMY TO RLQ NOTED, STOMA RED AND INTACT. NOLAN CATHETER IN PLACE DRAINING CLEAR YELLOW URINE. DENIES N/V. IV SITE TO LFA CDI, IVF INFUSING WELL, NO S/S ERYTHEMA OR SWELLING. CALL LIGHT WITHIN REACH. WILL CONTINUE TO MONITOR.
--- NOTE | 2018-12-01 20:15 | NUR ---
PAGED DR. FERNANDEZ REGARDING PT REQUEST FOR COUGH MEDICATION.
[2018-12-01 20:23] VITALS: BP 135/53
--- NOTE | 2018-12-02 00:49 | NUR ---
PT C/O 10/ ACHING BACK PAIN, MEDICATED PER EMAR.
--- NOTE | 2018-12-02 01:01 | NUR ---
PT RESTING IN BED WITH EYES CLOSED. RESPONDS TO NAME. MADE COMFORTABLE IN BED. NO SOB OBSERVED. SAFETY MEASURES IN PLACE. CALL LIGHT WITHIN REACH. WILL CONTINUE TO MONITOR.
--- NOTE | 2018-12-02 03:16 | NUR ---
PT CALLED TO HAVE COLOSTOMY BAG EMPTIED. PT ABLE TO EMPTY COLOSTOMY BAG BUT NEEDED ASSISTANCE WITH DISCARDING. 250CC OF LIQUID BROWN STOOL NOTED. PT ALSO STARTED GAGGING AND C/O NAUSEA PRIOR TO EMPTYING BAG. PT MEDICATED PER EMAR FOR NAUSEA WITH ZOFRAN IVP.
[2018-12-02 05:40] VITALS: BP 139/56
--- NOTE | 2018-12-02 05:59 | NUR ---
PT HAD RESTFUL NIGHT. NO S/S ACUTE DISTRESS. DENIES PAIN. IV SITE PATENT AND INTACT, IVF INFUSING WELL. MAGNET PLACER AT BEDSIDE TO EMPTY NOLAN AND COLOSTOMY BAG. NO CHANGES OVERNIGHT. ALL NEEDS MET AND ATTENDED TO. CALL LIGHT WITHIN REACH. SAFETY MEASURES MAINTAINED. CONTACT ISOLATION REMAINS IN PLACE. WILL ENDORSE CARE TO ONCOMING SHIFT.
[2018-12-02 06:11] LABS: BASOPHIL % 0.1 % (0-2); PLATELET COUNT 220 x10^3mcL (130-400)
[2018-12-02 06:25] LABS: CALCIUM 7.7 mg/dL (8.5-10.1); CARBON DIOXIDE 28.2 mmol/L (21-32); CHLORIDE SERUM 106 mmol/L (98-107); CREATININE SERUM 0.8 mg/dL (0.6-1.0); GFR1 > 60 mL/min; GLUCOSE SERUM 232 mg/dL (74-106); POTASSIUM SERUM 4.3 mmol/L (3.5-5.1); SODIUM SERUM 141 mmol/L (136-145)
[2018-12-02 07:41] LABS: RED CELL DISTRIBUTION WIDTH 16.8 % (11.5-14.5)
--- NOTE | 2018-12-02 07:49 | NUR ---
REPORT TAKEN FROM RAIL TRACK LAYER NURSE, PT SLEEPING AT TIME OF REPORT, WILL CONTINUE TO MONITOR,
--- NOTE | 2018-12-02 07:49 | NUR ---
PT REPORTS 10/10 BACK PAIN AT THIS TIME, GIVEN TORADOL 30MG IVP PER PRN ORDER, WILL CONTINUE TO MONITOR.
[2018-12-02 09:03] VITALS: BP 119/56
--- NOTE | 2018-12-02 11:58 | NUR ---
Follow-up Nutrition Assessment- Dx: acute respiratory failure, COPD Labs: (12/02/18) Na 141, K 4.3, Glu 232 H, BUN 21, Cr 0.8, A1c 6.9 H, H/H 9.9/29. Meds: (12/02) Na 141, K 4.3, Glu 232 H, BUN 21 H, Cr 0.8, A1c 6.9 H, H/H 10.2/30. Diet: CCHO as of breakfast on 11/30/18. TF was completed on 11/28/18, Pt was on FL on 09/30/18. Weights: (11/29) 63.5 kg/140# Skin: Intact Edema: None Last BM: 12/02/18 Per started on PO diet on 11/30/18 - CCHO started at breakfast. Patient notified of current diet and was given a description of restrictions. RDN visited with Pt. Pt seen laying in bed, in good spirits. Pt reports having had 1 pancake and 1 cup of coffee for breakfast this morning, this amount of normal for her and is the typical amount of food she would eat a home. She felt satisfied and is happy with the food. Pt states she does follow the DM diet at home, her daughter cooks for her and is knowledgeable of the DM diet. RDN offered to provide DM diet education, Pt declined verbal discussion but accepts Eat Right Type 2 Diabetes Nutrition Therapy handout. Pt declined to go over the handout but says that she will give it to her daughter. Pt denies further questions for RDN at this time, is appreciative of handout and concern provided. Per previous RDN Note (11/29), Pt's TF was held due to Pt undergoing CPAP trials. No N/V reported at that time, Pt was tolerating TF well with < 10 mL residuals. Estimated Nutritional Needs unchanged from prior assessment: Energy: 3657-6252 kcal/d (25-30 kcal/kg - COPD) Protein: 51-63 (0.8-1 gm/kg - maintenance and preservation of lean body mass) Fluid: 7119-8848 mL/d (1 mL/kcal - fluid balance) or per doctor Nutrition Diagnosis 1. Altered nutrition-related lab values related to endocrine dysfunction as evidenced by BG 232, A1c 6.9. (Modified) 2. Inadequate enteral nutrition infusion related to current rate of 40 mL/hr as evidenced by Pt meeting < 75% of estimated calorie and protein needs. (Resolved; TF D/C'd on 11/28/18, started on PO CCHO diet on 11/30/18) Intervention/RDN Recommendation(s): 1. Recommend continue on CCHO diet as tolerated. Monitor/Evaluate Goal: Intake via PO intakes to meet at least 75% of estimated needs with acceptable tolerance within 2-3 days. Monitor: nutrition support tolerance, Labs, GI function, Skin integrity, Weights. F/U in 2-3 days as high risk (12/04-)
--- NOTE | 2018-12-02 11:58 | NUR ---
Intervention/RDN Recommendation(s): 1. Recommend continue on CCHO diet as tolerated.
[2018-12-02 12:37] VITALS: BP 146/56
--- NOTE | 2018-12-02 14:30 | NUR ---
NOLAN DC'D PER PROVIDERS ORDER, PT TOLERATED WELL, FAMILY AT THE BEDSIDE DURING PROCEDURE.
[2018-12-02 17:00] VITALS: BP 135/50
--- NOTE | 2018-12-02 18:55 | NUR ---
PT TOLERATED TREATMENT WELL DURING SHIFT, ROUNDS COMPLETE, WILL ENDORSE CARE TO FORESTER AIDE NURSE
--- NOTE | 2018-12-02 19:17 | NUR ---
REPORT GIVEN TO MANAGER WOUND CARE NURSE AT THE BEDSIDE, CARE ENDORSED
--- NOTE | 2018-12-02 19:23 | NUR ---
RECEIVED PT FROM PREVIOUS SHIFT. AAO. SITTING IN BED WITH HOB ELEVATED. CONTACT ISOLATION REMAINS IN PLACE. DAUGHTER AT BEDSIDE. DENIES HEADACHE/DIZZINESS. ABLE TO MAKE NEEDS KNOWN. BREATHING E/U ON 2L OXYGEN NC, DENIES SOB. DENIES CP. COLOSTOMY TO RLQ NOTED, STOMA BEEFY RED AND INTACT, LIQUID BROWN STOOL NOTED IN COLLECTION BAG. IV SITE TO LFA CDI, IVF INFUSING WELL, NO S/S ERYTHEMA OR SWELLING. CALL LIGHT WITHIN REACH. WILL CONTINUE TO MONITOR.
[2018-12-02 20:59] VITALS: BP 146/68
--- NOTE | 2018-12-02 21:10 | NUR ---
PT REQUESTING SLEEPING MEDICATION. DR. FERNANDEZ MADE AWARE.
--- NOTE | 2018-12-03 00:16 | NUR ---
PT RESTING IN BED. DENIES PAIN. DENIES N/V. NO S/S ACUTE DISTRESS. CALL LIGHT WITHIN REACH. WILL CONTINUE TO MONITOR.
[2018-12-03 05:13] VITALS: BP 141/55
--- NOTE | 2018-12-03 06:05 | NUR ---
PT HAD RESTFUL NIGHT. DENIES PAIN, APPEARS COMFORTABLE. DENIES N/V. ALL NEEDS MET AND ATTENDED TO. NO CHANGES OVERNIGHT. IV SITE PATENT AND INTACT, IVF INFUSING WELL. PT ABLE TO VOID SINCE AN [place]. CALL LIGHT WITHIN REACH. SAFETY MEASURES MAINTAINED. CONTACT ISOLATION REMAINS IN PLACE. WILL ENDORSE CARE TO ONCOMING SHIFT.
[2018-12-03 06:24] LABS: PLATELET COUNT 255 x10^3mcL (130-400)
[2018-12-03 06:35] LABS: CALCIUM 7.9 mg/dL (8.5-10.1); CHLORIDE SERUM 106 mmol/L (98-107); CREATININE SERUM 0.8 mg/dL (0.6-1.0); GFR1 > 60 mL/min; GLUCOSE SERUM 220 mg/dL (74-106); POTASSIUM SERUM 3.9 mmol/L (3.5-5.1); SODIUM SERUM 142 mmol/L (136-145)
[2018-12-03 06:49] LABS: BASOPHIL % 0 % (0-2); RED CELL DISTRIBUTION WIDTH 16.9 % (11.5-14.5)
--- NOTE | 2018-12-03 07:05 | NUR ---
RECEIVED PT FROM SHIFT NURSE A/OX4 LYING IN BED. PT C/O OF GEN BODY PAIN. WILL MEDICATE ORDERED. RESP EVEN AND UNLABORED ON 2L NC. IV INTACT AND PATENT. BED IN LOW POSITION. CALL LIGHT WITHIN REACH. WILL CONTINUE TO MONITOR.
--- NOTE | 2018-12-03 07:05 | NUR ---
BEDSIDE REPORT GIVEN TO KAILYN PARHAM.
--- NOTE | 2018-12-03 07:18 | NUR ---
PT C/O OF GEN BODY PAIN. GAVE ULTRAM ORDERED. WILL CONTINUE TO MONITOR.
--- NOTE | 2018-12-03 08:39 | NUR ---
PT DENIES ANY GEN BODY PAIN. WILL CONTINUE TO MONITOR.
[2018-12-03 09:14] VITALS: BP 125/36
--- NOTE | 2018-12-03 11:13 | NUR ---
PT ASLEEP BUT AROUSABLE. NO ACUTE DISTRESS NOTED. BED IN LOW POSITION. FALL PRECAUTIONS IN PLACE. CALL LIGHT WITHIN REACH. WILL CONTINUE TO MONITOR.
[2018-12-03 12:31] VITALS: BP 136/55
--- NOTE | 2018-12-03 14:03 | NUR ---
PT EXPRESSED RELIEF OF BODY PAIN. WILL CONTINUE TO MONITOR.
--- NOTE | 2018-12-03 16:05 | NUR ---
PT LYING IN BED TALKING WITH FAMIY MEMBER. NO ACUTE DISTRESS NOTED. BED IN LOW POSITION. CALL LIGHT WITHIN REACH. WILL CONTINUE TO MONITOR.
--- NOTE | 2018-12-03 16:59 | NUR ---
PHYSICAL THERAPY DAILY NOTES CO-SIGN All documentation done by the Medical Radiation Therapist for 12/03/18 has been reviewed. I agree with the documentation. Reviewed/Co-Signed by: Jade Curry PT Documentation Done by:CRISTIAN BURRIS PTA
--- NOTE | 2018-12-03 18:19 | NUR ---
PT RESTING IN BED WITH NO C/O OF PAIN. DAUGHTER AT BEDSIDE. IV INTACT PATENT. FALL PRECAUTIONS IN PLACE. BED IN LOW POSITION. CALL LIGHT WITHIN REACH. WILL BE ENDORSED.
[2018-12-03 18:42] VITALS: BP 144/59
--- NOTE | 2018-12-03 19:30 | NUR ---
RECIEVED PATIENT AT START OF SHIFT A/O X4, NEPALI SPEAKING ONLY. DUAGHTER AT BEDSIDE TO TRANSLATE. PATIENT ON TELE NUMBER 21, NSR. NO SOB ON 2L NC. LUNGS DIMINISHED BILATERALLY AT THE BASES. RUQ HERNIA NOTED. RLQ COLOSTOMY BAG IN PLACE, STOMA PINK, SURROUNDING SKIN INTACT. DUSGHTER STATES SHE CHANGED THE BAG TODAY. BS ACTIVE. IV TO LFA INFUSING WELL. BED LOCKED AND IN LOWEST POSITION. CALL LIGHT AND BEDSDIE TABLE WITHIN REACH. WILL CONTINUE TO MONITOR.
[2018-12-03 20:46] VITALS: BP 145/53
--- NOTE | 2018-12-03 23:38 | NUR ---
PATIENT GIVEN ULTRAM PO PER EMAR FOR 7/10 BACK PAIN.
[2018-12-04 06:00] VITALS: BP 148/50
--- NOTE | 2018-12-04 06:51 | NUR ---
NO FURTHER SIGNIFICANT EVENTS THIS SHIFT. IV INFUSING WELL. CALL LIGHT WITHIN REACH. CONTACT PRECAUTIONS MAINTAINED. NO SOB NOTED. WILL ENDORSE CARE TO MORNING NURSE.
[2018-12-04 06:53] LABS: CALCIUM 7.8 mg/dL (8.5-10.1); CHLORIDE SERUM 104 mmol/L (98-107); CREATININE SERUM 0.8 mg/dL (0.6-1.0); GFR1 > 60 mL/min; GLUCOSE SERUM 274 mg/dL (74-106); POTASSIUM SERUM 3.5 mmol/L (3.5-5.1); SODIUM SERUM 140 mmol/L (136-145)
[2018-12-04 07:13] LABS: BASOPHIL % 0.1 % (0-2); PLATELET COUNT 296 x10^3mcL (130-400); RED CELL DISTRIBUTION WIDTH 16.7 % (11.5-14.5)
--- NOTE | 2018-12-04 07:21 | NUR ---
RECEIVED PT'S REPORT FROM LEAVING NURSE. PT IS ON CONTACT ISOLATION FOR URINE ESBL. PT IS REST ON BED, AA/OX3. PT BREATHING ON O2 2L VIA NC, EVEN, UNLABORED. PT STATED SHE HAS O2 SUPPLY AT HOME. COLOSTOMY AT RLQ, LIQUID STOOL NOTED IN BAG. IV SITE PATENT, INTACT. IVF INFUSING AT 50ML/HR.
[2018-12-04 09:16] VITALS: BP 149/60
[2018-12-04 13:00] VITALS: BP 121/51
--- NOTE | 2018-12-04 17:56 | NUR ---
PT TOLERATE WELL ON O2 2L VIA NC, DENIED SOB THROUGH SHIFT. COLOSTOMY BAG IS EMPTY X 3, LOOSE STOOL. PER PHYSICAL THERAPY'S STATEMENT: PT DID BETTER TODAY. PT AMBULATE IN THE ROOM FROM BED TO DOOR A FEW ROUNDS. PT NO COMPLAIN OF PAIN. PT VERBALLY EXPRESSED SHE IS READY TO GO HOME. IV SITE PATENT, INTACT. IVF INFUSING AT 50ML/HR.
[2018-12-04 18:09] VITALS: BP 142/52
--- NOTE | 2018-12-04 19:11 | NUR ---
PT'S DAUGHTER AT BEDSIDE. QUESTIONS AND CONCERNS ANSWERED.
--- NOTE | 2018-12-04 19:30 | NUR ---
REC'D PT FROM DAY NURSE. DAUGHTER AT BEDSIDE. PT RESTING IN BED. AAOX4, SPEECH CLEAR, FOLLOWS COMMANDS. TELE 21. DENIES CP, DIZZINESS, OR PALPITATIONS. DENIES RESP DISTRESS OR SOB. BREATHING EVEN/UNLABORED ON 2L O2 VIA NC, SPO2 96%. ABD SOFT/ROUND. COLOSTOMY NOTED TO RLQ DRAINING WATERY STOOL- OLIVE COLORED. LUQ HERNIA. DENIES ABD PAIN, TENDERNESS, OR N/V. C/O 8/10 BACK PAIN, STABBING. WOULD LIKE PAIN MEDS WITH NIGHT MEDICATIONS. REPOSITIONS IN BED. GENERALIZED WEAKNESS. USES WC AT HOME. VOIDING FREELY, USING BEDPAN. ECCHYMOSIS BUE. BIPAP AT BEDSIDE BUT PT DOES NOT WANT IT ON TONIGHT. IV TO LFA PATENT AND INFUSING, SITE WNL. CALL LIGHT WITHIN REACH, BED AT LOWEST POSITION. WILL CONTINUE TO MONITOR.
[2018-12-04 20:46] VITALS: BP 135/53
--- NOTE | 2018-12-04 21:00 | NUR ---
PT C/O BACK PAIN 05/09. TRAMADOL GIVEN PER ORDER. WILL MONITOR FOR RELIEF.
--- NOTE | 2018-12-04 22:07 | NUR ---
COLOSTOMY DRAINED; BED SOILED. LINEN AND GOWN CHANGED. PT CLEANED. REPORTS PAIN TO BACK IS BETTER. BREATHING EVEN/UNLABORED ON 2L O2 VIA NC. WILL CONTINUE TO MONITOR.
--- NOTE | 2018-12-05 01:19 | NUR ---
PT RESTING IN BED WITH EYES CLOSED. LAYING ON L SIDE. NO SIGNS OF DISTRESS NOTED. BREATHING EVEN/UNLABORED ON 2L O2 VIA NC. CALL LIGHT WITHIN REACH, BED AT LOWEST POSITION. WILL CONTINUE TO MONITOR.
[2018-12-05 05:44] VITALS: BP 150/56
--- NOTE | 2018-12-05 06:32 | NUR ---
PHYSICAL THERAPY DAILY NOTES CO-SIGN All documentation done by the Repair Specialist for 12/05/18 has been reviewed. I agree with the documentation. Reviewed/Co-Signed by: Jade Curry PT Documentation Done by:CRISTIAN BURRIS PTA FOR 12/04/18
--- NOTE | 2018-12-05 06:39 | NUR ---
PT AWAKE AND RESTING IN BED. C/O BACK PAIN 03/09. TORADOL GIVEN PER ORDER. DENIES ANY SOB OR RESP DISTRESS. BREATHING EVEN/UNLABORED ON 2L O2 VIA NC. NO SIGNIFICANT CHANGES DURING SHIFT. CALL LIGHT WITHIN REACH, BED AT LOWEST POSITION. WILL ENDORSE TO DAY NURSE.
[2018-12-05 07:02] LABS: CALCIUM 7.5 mg/dL (8.5-10.1); CARBON DIOXIDE 30.4 mmol/L (21-32); CHLORIDE SERUM 105 mmol/L (98-107); CREATININE SERUM 0.7 mg/dL (0.6-1.0); GFR1 > 60 mL/min; GLUCOSE SERUM 238 mg/dL (74-106); POTASSIUM SERUM 3.5 mmol/L (3.5-5.1); SODIUM SERUM 140 mmol/L (136-145)
--- NOTE | 2018-12-05 07:10 | NUR ---
RECEIVED PATIENT FROM RELIEF OPERATOR NURSE. PATIENT IS RESTING WITH BOTH EYES CLOSED, AROUSABLE. TELE#21, SB WITH INVERTED T WAVE, HR 57. ON 2L, NC, BREATHING EVEN AND UNLABORED. COLOSTOMY NOTED TO RLQ. CONTACT PREC IN PLACE FOR ESBL URINE. IV NOTED TO LFA, IVF INFUSING WELL ORDERED, NO S/S ERYTHEMA AT SITE. CALL LIGHT WITHIN EASY REACH. WILL CONTINUE PLAN OF CARE.
[2018-12-05 08:01] VITALS: BP 135/60
[2018-12-05 08:13] LABS: BASOPHIL % 0.1 % (0-2); PLATELET COUNT 278 x10^3mcL (130-400); RED CELL DISTRIBUTION WIDTH 17.1 % (11.5-14.5)
--- NOTE | 2018-12-05 11:06 | NUR ---
Follow-up Nutrition Assessment- 239T/B NATASHA MENDOZA HR FU Dx: Acute respiratory failure, COPD Labs: BG 238H, BUN 20H, Meds: D50%, Humulin, Lipitor, Pepcid, zofran Diet: CCHO PO intake: (12/04) 100% average Weights: (11/28) 62 kg, (11/29) 63.5 kg, (11/30) 64 kg Skin: BUE ecchymosis Brandan: 17 Edema: none Last BM: 12/03/18, colostomy RDN visit (12/05): pt was sleeping. Per RN Leilani, pt has good appetite and does not have any N/V. Previous RDN visit (12/02): Pt has good appetite and consumed CCHO diet. Diabetes diet education was provided using [facility] Type 2 DM medical nutrition therapy handout. Estimated Nutritional Needs Based on actual body weight 63.5 kg Energy:4873-2888 kcal/d (25-30 kcal/kg- COPD) Protein: 51-63 (0.8-1.0g/kg)-maintenance and preservation of lean body mass Fluid: 3020-3508 ml/d (1 ml/kcal-fluid balance) or per doctor Nutrition Diagnosis 1. Altered nutrition related lab values related to endocrine dysfunction as evidenced by BG 238, A1C 6.9. (ongoing) Intervention 1. Recommend continuing CCHO diet. Monitor/Evaluate Previous goal: Continue CCHO diet (met) Goal: PO intake at least 75% of estimated needs Monitor: PO intake, Labs, GI function F/U in 7 days as low risk 12/12
--- NOTE | 2018-12-05 11:06 | NUR ---
1. Recommend continuing [facility] diet.
[2018-12-05 12:00] VITALS: BP 143/67
[2018-12-05 12:02] VITALS: BP 143/67
--- NOTE | 2018-12-05 12:40 | NUR ---
PATIENT VERBALLY DISTRAUGHT. REQUESTING THAT SHE GO HOME NOW AND THAT SHE IS SO TIRED. PATIENT REASSURED AT THIS TIME. SENIOR COST ESTIMATOR JOSE NOTIFIED ADN AT BEDSIDE TO SPEAK WITH PATIENT. WILL FOLLOW UP.
[2018-12-05] MEDS ORDERED: AMO500 PO (13:36)
--- NOTE | 2018-12-05 14:46 | NUR ---
SPOKE WITH DAUGHTER JULIAN TO NOTIFY OF PATIENTS DC. TRANSPORTATION TO BE ARRANGED FOR QUALITY IMPROVEMENT MANAGER IN 1 HOUR. WILL GIVE PATIENT DC INSTRUCTIONS AND PREPARE FOR DC AT THIS TIME.
--- NOTE | 2018-12-05 14:52 | NUR ---
PATIENT GIVEN ALL DC INSTRUCTIONS AT THIS TIME. ALL QUESTIONS ANSWERED REGARDING DC. ALL NEW PRESCRIPTIONS GIVEN TO PATIENT. TELE BOX REMOVED AND RETURNED TO CLAIM TRAINEE. IV REMOVED AND CATHETER TIP INTACT. CALL LIGHT WITHIN EASY REACH. PATIENT TO BE ASSISTED TO GET DRESSED AND TO NOTIFY WHEN FAMILY IS HERE FOR GRINDER SET UP OPERATOR SURFACE.
--- NOTE | 2018-12-05 15:07 | NUR ---
PATIENT REFUSES PICTURES AT TIME OF DC.
--- NOTE | 2018-12-05 15:59 | NUR ---
PATIENT TAKEN DOWN TO DC OFFICE AT THIS TIME. DAUGHTER, JULIAN TO PLASTIC MOLDING OPERATOR PATIENT. ALL PERSONAL BELONGINGS TAKEN WITH FAMILY. AWAKE, ALERT AND ORIENTED. VS STABLE AT TIME OF DC. NO C/O PAIN OR DISCOMFORT.
--- NOTE | 2018-12-06 06:36 | NUR ---
PHYSICAL THERAPY DAILY NOTES CO-SIGN All documentation done by the Loading Unit Operator Seating for 12/06/18 has been reviewed. I agree with the documentation. Reviewed/Co-Signed by: Jade Curry PT Documentation Done by:ZULEMA HUMPHREY [facility] FOR 12/05/18
== END 2018-12-05 16:00 | disposition home or self-care (01) | DRG 133 ==
LOC: ED 23:25 → IC 11-28 01:35 → DU 11-28 01:35 → IC 11-28 03:34 → DU 11-30 14:24
PROVIDERS: Emergency Medicine; Family Medicine; ADMIT Internal Medicine
PROC: 5A1945Z Respiratory Ventilation, 24-96 Consecutive Hours (ICD-10-PCS; principal; 2018-11-28)
PROC: 0BH17EZ Insertion of Endotracheal Airway into Trachea, Via Natural or Artificial Opening (ICD-10-PCS; 2018-11-28)
DX: J96.00 Acute respiratory failure, unspecified whether with hypoxia or hypercapnia (principal); J44.1 Chronic obstructive pulmonary disease with (acute) exacerbation; E44.0 Moderate protein-calorie malnutrition; E87.2 Acidosis; E11.65 Type 2 diabetes mellitus with hyperglycemia; E83.42 Hypomagnesemia; E78.5 Hyperlipidemia, unspecified; I10 Essential (primary) hypertension; G89.29 Other chronic pain; Z68.29 Body mass index [BMI] 29.0-29.9, adult; Z79.4 Long term (current) use of insulin; Z87.891 Personal history of nicotine dependence; Z86.711 Personal history of pulmonary embolism; Z79.01 Long term (current) use of anticoagulants; Z79.84 Long term (current) use of oral hypoglycemic drugs; Z86.73 Personal history of transient ischemic attack (TIA), and cerebral infarction without residual deficits
CPT/HCPCS: 31500; 36600; 82962; 84439; 94150; 97110-GP; 97116-GP; 97530-GP; A4628; J0696; J1644; J1885; J1956; J2185; J2250; J2405; J2704; J2920; J2930; J3010; J3475; J3490; J7030; J7620; J7626; Q0092; Q0163

== ENCOUNTER 2019-03-25 16:39 | Inpatient (IN) | payer MEDICAID ==
[~2019-03-25] VITALS: Ht 157.5 cm; Wt 81.6 kg
[~2019-03-25 16:39] MED LIST changes: +AMO500 PO; +NORCO1 TA2
[2019-03-25 16:47] VITALS: Ht 157.5 cm; Wt 81.6 kg
[2019-03-25 17:15] LABS: BASOPHIL % 0.7 % (0-2); PLATELET COUNT 249 x10^3mcL (130-400)
[2019-03-25 17:16] LABS: RED CELL DISTRIBUTION WIDTH 14.7 % (11.5-14.5)
[2019-03-25 17:18] LABS: CALCIUM 8.4 mg/dL (8.5-10.1); CARBON DIOXIDE 21.4 mmol/L (21-32); CREATININE SERUM 1.1 mg/dL (0.6-1.0); POTASSIUM SERUM 4.6 mmol/L (3.5-5.1)
[2019-03-25 17:23] LABS: ALBUMIN 3.2 g/dL (3.4-5.0); BILIRUBIN TOTAL 0.24 mg/dL (0.20-1.00); TOTAL PROTEIN, SERUM 6.9 g/dL (6.4-8.2)
[2019-03-25 21:24] VITALS: BP 111/49
[2019-03-25 22:40] VITALS: BP 90/45
[2019-03-26 05:09] VITALS: BP 99/48
[2019-03-26 06:26] LABS: PLATELET COUNT 259 x10^3mcL (130-400)
[2019-03-26 06:32] LABS: BASOPHIL % 0 % (0-2); RED CELL DISTRIBUTION WIDTH 14.6 % (11.5-14.5)
[2019-03-26 07:05] LABS: CALCIUM 8.2 mg/dL (8.5-10.1); CARBON DIOXIDE 19.5 mmol/L (21-32); CREATININE SERUM 1.7 mg/dL (0.6-1.0); MAGNESIUM 1.1 mg/dL (1.8-2.4); PHOSPHOROUS 2.7 mg/dL (2.5-4.9); POTASSIUM SERUM 5.2 mmol/L (3.5-5.1)
[2019-03-26 09:35] VITALS: BP 110/40
[2019-03-26 12:31] VITALS: BP 98/48
[2019-03-26 17:00] VITALS: BP 110/44
[2019-03-26 20:54] VITALS: BP 111/40
[2019-03-27 02:53] LABS: AMPHETAMINE QUAL UR NONE DETECTED (See below)
[2019-03-27 05:31] VITALS: BP 115/50
[2019-03-27 08:00] VITALS: BP 131/60
[2019-03-27 11:28] LABS: CALCIUM 7.8 mg/dL (8.5-10.1); CARBON DIOXIDE 24.3 mmol/L (21-32); CHLORIDE SERUM 104 mmol/L (98-107); CREATININE SERUM 0.9 mg/dL (0.6-1.0); GFR1 > 60 mL/min; GLUCOSE SERUM 323 mg/dL (74-106); POTASSIUM SERUM 3.6 mmol/L (3.5-5.1); SODIUM SERUM 139 mmol/L (136-145)
[2019-03-27 12:44] VITALS: BP 152/63
[2019-03-27 17:47] VITALS: BP 136/56
[2019-03-27 20:56] VITALS: BP 130/81
[2019-03-28 06:05] VITALS: BP 108/57
[2019-03-28 07:22] LABS: BASOPHIL % 0.1 % (0-2); PLATELET COUNT 268 x10^3mcL (130-400)
[2019-03-28 07:31] LABS: RED CELL DISTRIBUTION WIDTH 15.2 % (11.5-14.5)
[2019-03-28 07:32] LABS: CALCIUM 7.2 mg/dL (8.5-10.1); CARBON DIOXIDE 25.4 mmol/L (21-32); CHLORIDE SERUM 108 mmol/L (98-107); CREATININE SERUM 0.9 mg/dL (0.6-1.0); GFR1 > 60 mL/min; GLUCOSE SERUM 318 mg/dL (74-106); MAGNESIUM 2.3 mg/dL (1.8-2.4); POTASSIUM SERUM 3.4 mmol/L (3.5-5.1); SODIUM SERUM 144 mmol/L (136-145)
[2019-03-28 08:12] VITALS: BP 108/57
[2019-03-28 09:12] VITALS: BP 129/59
[2019-03-28 13:22] VITALS: BP 126/68
[2019-03-28] MEDS ORDERED: ELIQUIS5 MG PO (14:10)
[2019-03-28] MEDS ORDERED: LEVOFLOXACIN500 M1 PO (14:11)
[2019-03-28 14:52] VITALS: BP 126/68
[2019-03-28 16:57] VITALS: BP 119/57
[2019-05-19] MEDS ORDERED: TRAMADOL HCL50 MG PO (09:29)
== END 2019-03-28 18:10 | disposition home or self-care (01) | DRG 140 ==
LOC: ED 16:39 → DU 20:02 → MU 20:02 → DU 23:11
PROVIDERS: Internal Medicine; ADMIT General Practice
DX: J44.1 Chronic obstructive pulmonary disease with (acute) exacerbation (principal); E11.65 Type 2 diabetes mellitus with hyperglycemia; Z99.81 Dependence on supplemental oxygen; I69.354 Hemiplegia and hemiparesis following cerebral infarction affecting left non-dominant side; J20.9 Acute bronchitis, unspecified; J44.0 Chronic obstructive pulmonary disease with (acute) lower respiratory infection; K46.9 Unspecified abdominal hernia without obstruction or gangrene; L29.9 Pruritus, unspecified; E78.5 Hyperlipidemia, unspecified; F32.9 Major depressive disorder, single episode, unspecified; F41.9 Anxiety disorder, unspecified; I10 Essential (primary) hypertension; Z68.32 Body mass index [BMI] 32.0-32.9, adult; Z93.3 Colostomy status; Z87.891 Personal history of nicotine dependence; Z86.711 Personal history of pulmonary embolism; Z79.01 Long term (current) use of anticoagulants; Z79.84 Long term (current) use of oral hypoglycemic drugs; Z79.4 Long term (current) use of insulin; Z90.49 Acquired absence of other specified parts of digestive tract; Z88.6 Allergy status to analgesic agent; Z99.3 Dependence on wheelchair
CPT/HCPCS: 36600; 82962; 83880; 94150; G0378; J1200; J1885; J1956; J2060; J2270; J2405; J2920; J2930; J3475; J7030; J7613; J7633; J7644; Q0092

== ENCOUNTER 2019-04-07 17:51 | Inpatient (IN) | payer MEDICAID ==
[~2019-04-07] VITALS: Ht 157.5 cm; Wt 64.0 kg
--- NOTE | 2019-04-07 18:10 | NUR ---
PER PT HAS BEEN HAVING DIZZINESS FOR THREE DAYS. PER PT SHE IS HAVING SOME TROUBLE SWALLOWING WITH MADDY NECK PAIN. PT STS DIZZINESS FEELS LIKE A SPINNING SENSATION. PT STS THAT SHE HAD A STROKE A FEW YEARS AGO AND HAS RT SIDED WEAKNESS. PT HAS +EQUAL SONG PLUGGER. NO NEUROLOGICAL DEFICITS NOTED AT THIS TIME. PT HAS UMBILICAL HERNIA NOTED. PT HAS COLOSTOMY RT SIDE OF ABDOMEN 2-3 YEARS AGO. PT STS THAT SHE THINKS SHE IS JUST HAVING ANXIETY. PT IS ON OXYGEN AT HOME 3L NC. PT STS SHE IS HAVING EPIGASTRIC PAIN THAT FEELS LIKE A PRESSURE. VSS. RESP E/U. NO DISTRESS NOTED. WILL CONTINUE TO MONITOR.
[2019-04-07 18:50] LABS: BASOPHIL % 0.9 % (0-2); PLATELET COUNT 273 x10^3mcL (130-400)
[2019-04-07 18:51] LABS: RED CELL DISTRIBUTION WIDTH 15.5 % (11.5-14.5)
[2019-04-07 18:59] LABS: CALCIUM 8.2 mg/dL (8.5-10.1); CARBON DIOXIDE 17.7 mmol/L (21-32); POTASSIUM SERUM 3.8 mmol/L (3.5-5.1)
[2019-04-07 19:04] LABS: ALBUMIN 3.4 g/dL (3.4-5.0); BILIRUBIN TOTAL 0.28 mg/dL (0.20-1.00); TOTAL PROTEIN, SERUM 7.3 g/dL (6.4-8.2)
--- NOTE | 2019-04-07 19:26 | NUR ---
REPORT GIVEN TO MARITA AVINA TO ASSUME CARE OF PT.
--- NOTE | 2019-04-07 20:39 | NUR ---
PT'S DAUGTHER AT BEDSIDE EMPTYING COLOSMY BAG.
--- NOTE | 2019-04-07 20:40 | NUR ---
PT OK WITH STRAIGHT CATH FOR UA.
[2019-04-07] MEDS ORDERED: COUMADIN1 MG (20:52)
[2019-04-07 21:07] LABS: microscopic required? NO
[2019-04-07 21:17] LABS: urine erythrocyte NEGATIVE (NEGATIVE)
--- NOTE | 2019-04-07 21:22 | NUR ---
DR CORDOVA AT BEDSIDE DISCUSSING POC WITH THE PT.
--- NOTE | 2019-04-07 22:53 | NUR ---
REPORT GIVEN TO RN DEE TO ASSUME CARE OF PT.
--- NOTE | 2019-04-07 23:50 | NUR ---
RECEIVED PT FROM ED VIA [employer], CAME IN DUE TO DIZZINESS AND NECK PAIN. AAOX4. DENIES HEADACHE/DIZZINESS. ABLE TO FOLLOW COMMANDS AND SPEAK IN FULL SENTENCES. SPEECH IS CLEAR. W/ LEFT SIDED WEAKNESS. PUPILS ARE DILATED BUT REACTIVE TO LIGHT. DENIES NUMBNESS/TINGLING SENSATION ON THE EXTREMITIES. NO SOB NOTED, WHEEZES NOTED ON AUSCULTATION, O2 SAT=97% ON 2LPM/NC. DENIES CHEST PAIN/PRESSURE, SINUS TACHYCARDIA ON THE MONITOR, HR AT 105. C/O NAUSEA. DENIES ABDOMINAL PAIN. ABDOMEN IS ROUND AND MILDLY FIRM. W/ RIGHT COLOSTOMY, NOTED LOOSE STOOLS. VOIDS. IV SITE ON THE RFA IS PATENT AND INTACT. SIDE RAILS UPX2. CALL LIGHT ON REACH. ON AIR MATTRESS. W/ BLANCHABLE ERYTHEMA ON BUE, BUTTOCKS AND CHEST AREA. ENDORSED TO PRIMARY NURSE MARY FOR CONTINUITY OF CARE
--- NOTE | 2019-04-07 23:54 | NUR ---
dr. riley is pagegated to made aware that pt is complaining of 10/10 back pain, waiting for orders.
[2019-04-07 23:55] VITALS: BP 137/67
[2019-04-08 00:05] VITALS: Ht 157.5 cm; Wt 64.0 kg
--- NOTE | 2019-04-08 00:21 | NUR ---
DR. JOHN MADE AWARE THAT PT HAS BEEN COMPLAINING 10/10 BACK PAIN. WAITING FOR ORDERS.
--- NOTE | 2019-04-08 01:45 | NUR ---
PT C/O 05/09 BACK PAIN. MEDICATED WITH PRN MORPHINE. PT STATES RELIEF RATES PAIN AT 09/09. PT ALSO C/O NAUSEA, MEDICATED WITH PRN ZOFRAN PER SEP. PT IN NO ACUTE DISTRESS. BED AT LOWEST SETTING, SIDE RAILS X2 UP. CALL LIGHT WITHING REACH. WILL CONTINUE TO MONITOR.
--- NOTE | 2019-04-08 02:30 | NUR ---
EMPTIED COLOSTOMY BAG, 200CC OUTPUT. PT TOLERATED WELL. NO AUCTE DISTRES NOTED. BED AT LOWEST SETTING. SIDE RAILS X2 UP. CALL LIGHT WITHING REACH. WILL CONTINUE TO MONITOR.
[2019-04-08 05:07] VITALS: BP 119/62
--- NOTE | 2019-04-08 06:18 | NUR ---
PT SLEPT AT INTERVALS. STATES PAIN IS BETTER. DENIES NAUSEA. BREATHING EVEN AND UNLABORED ON 2L NC. NO SOB NOTED. PT AAOX4, SPEECH CLEAR, DENIES H/A DIZZINESS AT THIS TIME. ALL NEEDS ASSESSED AND ATTENDED TO. NO ACUTE DISTRESS NOTED. BED AT LOWEST SETTING. SIDE RAILS X2 UP. CALL LIGHT WITHING REACH. WILL ENDORSE CARE TO AM NURSE.
[2019-04-08 07:57] VITALS: BP 119/62
--- NOTE | 2019-04-08 08:00 | NUR ---
SHIFT ASSESSMENT DONE. PATIENT A/A/OX4; ABLE TO MADE NEEDS KNOWN. TELE#8; ST; HR = 107. DENIED CHEST PAIN. BREATHING SOUND DIMINISHED [place] BASES. WHEEZING SOUND TO MADDY UPPER LOBES. O2 SAT 97% ON ON 2L VIA N/C. ABD ROUND/SOFT. COLOSTOMY TO RLQ ABD. LOOSE BM IN BAG NOTED. 150CC COLLECTED. ANXIETY. IV TO RAC INFILTRATED. BED RESTING. ON AIR MATTRESS. C/O WHOME BODY PAIN. MORPHINE GIVEN. CONTACT ISOLATION IN PLACE. CALL LIGHT IN REACH.
[2019-04-08 09:12] VITALS: BP 130/67
--- NOTE | 2019-04-08 10:30 | NUR ---
IV TO RAC D/C'D. NEW IV TO LAC W/ 22G NEDDLE. IV PATENT.
[2019-04-08 13:11] VITALS: BP 118/53
--- NOTE | 2019-04-08 16:06 | NUR ---
Discount pharmacy card and list to low cost medical clinics given to patient by Jill.
[2019-04-08 17:55] VITALS: BP 112/55
--- NOTE | 2019-04-08 18:53 | NUR ---
ANTIVAN GIVEN X2 FOR ANXIETY. MORPHINE X2 FOR ABD PAIN. TOLERATED CCHO DIET DINNER. VOID 550CC VIA BED LUGO. 250CC OF LOOSE TO LIQUID STOOL VIA COLOSTOMY. ENDORSD CARE TO [facility] NURSE.
--- NOTE | 2019-04-08 19:30 | NUR ---
RECEIVED PATIENT IN BED AWAKE, ALERT AND ORIENTED WITH NO SIGN OF RESPIRASTORY DISTRESS. BREATHING EASY AND NONLABOR WITH WHEEZES NOTED. SATTING AT 98% ON O2 AT 2L VIA NC. RT COLOSTOMY BAG INPLACE WITH SMALL OF STOOL NOTED, EMPTIED BY AM SHIFT. TELE#8 NSR ON MONITOR DENIES CHESTPAIN. IV TO LAC INTACT, HEPLOCKED FLUSHED WITH NS. WILL CONTINUE TO MONITOR. CALL LIGHT WITHIN REACH.
--- NOTE | 2019-04-08 20:45 | NUR ---
COLOSTOMY BAG EMPTIED WITH 150ML DARNELL BROWN STOOL. WILL CONTINUE TO MONITOR.
--- NOTE | 2019-04-08 21:10 | NUR ---
C/O BACKPAIN AND NAUSEA, MORPHINE 2MG IVP AND ZOFRAN 4MG IVP GIVEN PRESCRIBED. WILL CONTINUE TO MONITOR.
[2019-04-08 21:31] VITALS: BP 125/50
--- NOTE | 2019-04-08 23:27 | NUR ---
RELIEF NOTED PER PATIENT AFTER PAIN MEDS WAS GIVEN.
--- NOTE | 2019-04-08 23:49 | NUR ---
PATIENT AGITATED AND REQUESTED ATIVAN, ATIVAN 1MG PO GIVEN PRESCRIBED. WILL CONTINUE TO MONITOR.
--- NOTE | 2019-04-09 05:15 | NUR ---
CHECKED AT INTERVALS FOR NEEDS AND COMFORT. C/O BACKPAIN X1 THE ENTIRE SHIFT AND MEDICATED PRESCRIBED. KEPT ON ISOLATION PRECAUTION.
[2019-04-09 05:20] VITALS: BP 109/47
[2019-04-09 07:49] LABS: BASOPHIL % 0.2 % (0-2); PLATELET COUNT 215 x10^3mcL (130-400)
[2019-04-09 07:58] LABS: RED CELL DISTRIBUTION WIDTH 15.4 % (11.5-14.5)
--- NOTE | 2019-04-09 08:00 | NUR ---
SHIFT ASSESSMENT DONE. PATIENT ALERT/ORIENTED X3. ABLE TO MADE NEEDS KNOWN. TELE#8; SR; HR =68. NO RESP DISTRESS ON 2L VIA N/C. BREATHING SOUND CLEAR MADDY UPPER LOLES. DIMINISHED MADDY BASES. O2 SAT 99%. RT PROTOCOL. ABD ROUND SOFT. COLOSTOMY TO LOWER ABD. IVHL'D TO LAC. IV SITE CLEAN. GENERAL WEAKNESS. BED REST ON AIR MATTRESS. SCATTERED RASHES BUE AND CHEST W/ SCRATCHING MARKERS. VOID VIA BED LUGO. PAITENT ABLE TO REPOSITION SELF IN BED. CONTACT ISOLATION FOR HX OF URINE CULTURE (+) ESBL E. COLI. CALL LIGHT IN REACH.
[2019-04-09 08:02] LABS: CALCIUM 8.2 mg/dL (8.5-10.1); CARBON DIOXIDE 19.3 mmol/L (21-32); CREATININE SERUM 1.3 mg/dL (0.6-1.0); MAGNESIUM 1.4 mg/dL (1.8-2.4); PHOSPHOROUS 2.5 mg/dL (2.5-4.9); POTASSIUM SERUM 4.4 mmol/L (3.5-5.1)
[2019-04-09 10:01] VITALS: BP 89/49
--- NOTE | 2019-04-09 10:50 | NUR ---
C/O WHOLE BODY PAIN ON 05/09. MORPHINE 2MG IVP GIVEN. CONTINUE MONITOR.
--- NOTE | 2019-04-09 11:55 | NUR ---
PATIENT ANXIETY. WHOLE BODY SHAKING. STATED MORPHINE WAS NOT EFFECTIVE. ATIVAN 1MG PO GIVEN.
[2019-04-09 12:44] VITALS: BP 116/52
--- NOTE | 2019-04-09 14:55 | NUR ---
PHYSICAL THERAPY DAILY NOTES CO-SIGN All documentation done by the Project Manager Finance for 04/09/19 has been reviewed. I agree with the documentation. Reviewed/Co-Signed by: Jade Curry PT Documentation Done by: CRISTIAN BURRIS PTA
--- NOTE | 2019-04-09 15:30 | NUR ---
PATIENT HAD ATIVAN PO AT [id number]. C/O ANXIETY AGAIN. NEW ORDER OF ATIVAN 1MG IVP GIVEN. CONTINUE MONITOR.
[2019-04-09 17:36] VITALS: BP 121/58
--- NOTE | 2019-04-09 19:00 | NUR ---
NO C/O ANXIETY NOW. TOLERATED DINNER. HAD BM VIA COLOSTOMY. 650 CC TOTAL. VOID VIA BED LUGO.
--- NOTE | 2019-04-09 19:26 | NUR ---
BED SIDE REPORT GIVEN TO KAILYN HARE. PATIENT C/O WHOLE BODY PAIN ON 05/09 AND NAUSEA. MORPHINE 3MG AND ZOFRAN 4MG IVP GIVEN. ENORSED CARE TO KAILYN HARE, NOC FOR CONTIUE CARE.
--- NOTE | 2019-04-09 20:02 | NUR ---
PT RECIEVED AAO REG RESP WITH DAUGTHER AT THE BEDSIDE,KEPT CLEAN AND DRY TO TOUCH,HL TO THE LT AC WITH THE SITE PATENT AND INTACT,BED IN THE LOW POSITION AND LOCKED,PT ON LOW AIR MATTRESS,REPOSITION AND WAS MADE COMFORTABLE IN BED,CALL LIGHT MADE CLOSE TO THE PATIENT,WILL CONTINUE TO MONITOR.
[2019-04-09 21:18] VITALS: BP 114/40
[2019-04-10 06:12] VITALS: BP 110/45
--- NOTE | 2019-04-10 06:23 | NUR ---
PT HAD A RESTING NIGHT NO CHAVARRIA AT THIS TIME,WILL CONTINUE TO MONITOR.
[2019-04-10 06:58] LABS: CALCIUM 8.2 mg/dL (8.5-10.1); CARBON DIOXIDE 23.8 mmol/L (21-32); CHLORIDE SERUM 107 mmol/L (98-107); CREATININE SERUM 0.9 mg/dL (0.6-1.0); GFR1 > 60 mL/min; GLUCOSE SERUM 368 mg/dL (74-106); MAGNESIUM 1.8 mg/dL (1.8-2.4); PHOSPHOROUS 2.6 mg/dL (2.5-4.9); POTASSIUM SERUM 4.1 mmol/L (3.5-5.1); SODIUM SERUM 141 mmol/L (136-145)
[2019-04-10 07:15] LABS: PLATELET COUNT 236 x10^3mcL (130-400)
--- NOTE | 2019-04-10 07:38 | NUR ---
RECIVED HAND OFF REPORT FROM AMANDA AVINA. PATIENT ASLEEP AT THIS TIME, BREATHING REGULAR, EVEN, AND UNLABORED. NO SIGNED OF DISTRESS. BED IN LOWEST POSITION AND LOCKED, SIDE RAILS UP. CALL IGHT ON BED WITHIN REACH OF PATIENT. WILL CONTINUE TO MONITOR
[2019-04-10 08:00] LABS: BASOPHIL % 0 % (0-2); RED CELL DISTRIBUTION WIDTH 16.1 % (11.5-14.5)
--- NOTE | 2019-04-10 08:16 | NUR ---
RT WITH PATIENT ADMINISTEREING BREATHING TREATMENT
--- NOTE | 2019-04-10 08:30 | NUR ---
REPORTED WBC OF 16.4 TO JOSE MARTINEZ, ALREADY AWARE, WILL CONTINUE TO MONITOR PATIENT FOR AN ADDITIONAL DAY
--- NOTE | 2019-04-10 09:10 | NUR ---
ADMINSTERED MEDICATION PER MAR. ENCOURAGED PATIENT TO EAT BREAKFAST. INFORMED PATIENT THAT DUE TO HER WBC SHE WILL NOT BE DISCHARGED TODAY JOSE HAD THOUGHT AND WILL STAY AN EXTRA NIGHT TO BE MONITORED. TIAN VERBALIZED UNDERTANDING. CALL LIGHT WITHIN REACH, WILL CONTINUE TO MONITOR
[2019-04-10 10:03] VITALS: BP 117/48
[2019-04-10 13:09] VITALS: BP 116/49
--- NOTE | 2019-04-10 13:10 | NUR ---
ADMINSTERED MEDICATION PER MAR. PATIENT COMPLAINING OF PAIN 03/09, ADMINSTERED MORPHINE PER MAR. VSS. PATIENT IS CLEARED FOR DISHCARGED BUT STATES DAUGHTER CANNOTH PICK HER UP UNTIL 5PM
[2019-04-10 13:34] VITALS: BP 116/49
--- NOTE | 2019-04-10 15:06 | NUR ---
PHYSICAL THERAPY DAILY NOTES CO-SIGN All documentation done by the Industrial Spraypainter for 04/10/19 has been reviewed. I agree with the documentation. Reviewed/Co-Signed by: Jade Curry PT Documentation Done by: CRISTIAN BURRIS PTA
[2019-04-10 16:36] VITALS: BP 123/54
--- NOTE | 2019-04-10 17:58 | NUR ---
PATIENT DAUGHTER AT BEDSIDE, PROVIDED DISCHARGE TEACHING TO PATIENT AND DAUGHTER ABOUT HOSPITAL STAY. ANSWERED QUESTIONS AND INFORMED PATIENT ABOUT UPCOMMING APPOINT FOR FOLLOW UP CARE. REMOVED IV FROM LEFT AC, CATH INTCT. NO SIGNS OF SWELLING OR BLEEDING.
--- NOTE | 2019-04-10 18:04 | NUR ---
PATIENT REFUSED SCHEDULED MEDICATIONS AND BLOOD SUGAR CHECK
--- NOTE | 2019-04-10 18:30 | NUR ---
PATIENT DRESSED AND READY FOR DISCHARGE. REMOVED TELE MONITOR 8 AND RETURNED TO METALLURGIST HELPER. PATIENT ESCORTED OFF UNIT BY SOFTWARE ADMINISTRATOR WITH ALL BELONGINGS
[2019-05-19] MEDS ORDERED: TRAMADOL HCL50 MG PO (09:29)
== END 2019-04-10 19:18 | disposition home or self-care (01) | DRG 140 ==
LOC: ED 17:51 → DU 22:04
PROVIDERS: Emergency Medicine; Internal Medicine; ADMIT Internal Medicine
DX: J44.1 Chronic obstructive pulmonary disease with (acute) exacerbation (principal); E11.65 Type 2 diabetes mellitus with hyperglycemia; I69.354 Hemiplegia and hemiparesis following cerebral infarction affecting left non-dominant side; D72.829 Elevated white blood cell count, unspecified; I10 Essential (primary) hypertension; R55 Syncope and collapse; E78.5 Hyperlipidemia, unspecified; G47.33 Obstructive sleep apnea (adult) (pediatric); Z68.31 Body mass index [BMI] 31.0-31.9, adult; Z91.11 Patient's noncompliance with dietary regimen; Z91.14 Patient's other noncompliance with medication regimen; Z79.84 Long term (current) use of oral hypoglycemic drugs; Z79.4 Long term (current) use of insulin; Z87.891 Personal history of nicotine dependence; Z93.3 Colostomy status
CPT/HCPCS: 82962; 97110-GP; 97530-GP; G0378; J1200; J1815; J1956; J2060; J2270; J2405; J2930; J3475; J7030; J7040; J7620; J7626; Q0092; Q0163

== ENCOUNTER 2019-04-26 21:24 | Inpatient (IN) | payer MEDICAID ==
[~2019-04-26] VITALS: Ht 160 cm; Wt 67.3 kg
--- NOTE | 2019-04-26 21:32 | NUR ---
PER MEDIC PT HAS BEEN HAVING ABDOMINAL PAIN FOR ONE AY. PER MED PT STS SHE HAS BEEN HAVING +N/V. PT STS THAT SHE IS HAVING GENERALIZED ABDOMINAL PAIN/BACK AND NECK PAIN. PER PT SHE HAS NOT BEEN ABLE TO HAVE A BOWEL MOVEMENT FOR 2 DAYS. NOTED COLOSTOMY WITH FECIES NOTED IN BAG. PER PT SHE CHANGED COLOSTOMY BAG YESTERDAY. UPON PALPATION PT HAS TENDERNESS TO RUQ/RLQ/LLQ. PT STS SHE IS IN A 10/10. PT DENIES ANY CHEST PAIN AT THIS TIME. PT DENIES ANY NUMBNESS. NO NEUROLOGICAL DEFICITS NOTED. VSS. WILL CONTINUE TO MONITOR. RESP E/U. PT PLAED ON FULL CM. 2L NC FOR COMFORT.
--- NOTE | 2019-04-26 21:32 | NUR ---
NOTED EPIGASTRIC HERNA. DR. LR MADE AWARE. PT STS SHE HAS HAD IT FOR 4 MONTHS.
[2019-04-26 22:04] LABS: BASOPHIL % 0.3 % (0-2); PLATELET COUNT 277 x10^3mcL (130-400)
[2019-04-26 22:05] LABS: RED CELL DISTRIBUTION WIDTH 15.7 % (11.5-14.5)
--- NOTE | 2019-04-26 22:10 | NUR ---
PT TAKEN TO CT.
[2019-04-26 22:19] LABS: CALCIUM 8.7 mg/dL (8.5-10.1); CARBON DIOXIDE 25.2 mmol/L (21-32); CREATININE SERUM 1.1 mg/dL (0.6-1.0); POTASSIUM SERUM 4.2 mmol/L (3.5-5.1)
[2019-04-26 22:44] LABS: ALBUMIN 3.4 g/dL (3.4-5.0); BILIRUBIN TOTAL 0.6 mg/dL (0.20-1.00)
[2019-04-26 22:45] LABS: T4(THYROXINE) 8.6 ug/dL (4.7-13.3)
[2019-04-26 23:04] LABS: UA SPECIFIC GRAVITY <=1.005 (1.005-1.035); microscopic required? YES; urine erythrocyte TRACE (NEGATIVE)
--- NOTE | 2019-04-26 23:43 | NUR ---
PT STS THAT SHE STILL IS A 10/10 PAIN. MEDICATED PER EMAR. WILL CONTINUE TO MONITOR/ AAOX4.
[2019-04-27 01:10] LABS: CHOLESTEROL/HDL RATIO 2.3
[2019-04-27 01:14] LABS: MAGNESIUM 0.9 mg/dL (1.8-2.4)
--- NOTE | 2019-04-27 01:16 | NUR ---
LAB CALLED TO REPORT CRITICAL MG LAB. MG IS 0.9. PAGE GATED DR JOHN AND MADE HER AWARE. AWAITING ORDERS. PATIENT IS NOT ON FLOOR YET. REPORT RECEIVED FROM ED.
--- NOTE | 2019-04-27 01:16 | NUR ---
PER STEPHANIE AVINA REPORT WAS CALLED TO DAYANA ON MST FOR CONTINUATION OF CARE.
--- NOTE | 2019-04-27 01:56 | NUR ---
PATIENT ARRIVED FROM ED VIA [facility]. BELONGINGS AT BEDSIDE. PATIENT MOANING IN PAIN. C/O BACK AND ABD PAIN 05/09. WILL MEDICATE PER EMAR. CAME WITH ROOM AIR. SATING AT 93%. PLACES NC 2L ON PATIENT, NOW SATING AY 96%. PATIENT REPORTS SHE USES HOME O2 AT HOME (BASELINE 2L NC). BREATHING EVEN AND UNLABORED. NO SOB OR RESP DISTRESS NOTED. NGT TO RIGHT NARE ON INTERMITTENT SUCTION. GREEN OUTPUT NOTED. ER NURSE REPORTED 1000ML OUT IN ER. BILATERAL EXP WHEEZES HEARD. DENIES CHEST PAIN/PRESSURE. COLOSTOMY TO RLQ W/ GREENIS SEMI-LIQUID OUTPUT NOTED. HERNIA NOTED TO EPIGASTRIC REGION. HEALED MIDLINE ABD INCISION NOTED. REPORTS NAUSEA. ZOFRAN GIVEN IN ER. IV TO THE LFA, 20G. INFUSING FLAGYL FROM ER. PATENT AND INTACT. NO REDNESS OR SWELLING NOTED. TELE#6 ST @109. VSS. COMFORT AND SAFETY MEASURES IN PLACE. BED IS LOCKED AND IN THE LOWEST POSITION. SIDE RAILS UP X2. ORIENTED PATIENT TO ROOM AND CALL LIGHT SYSTEM. CALL LIGHT IS WITHIN REACH. WILL CONTINUE TO MONITOR.
--- NOTE | 2019-04-27 02:21 | NUR ---
C/O 10/10 BACK AND ABD PAIN. MOANING NOTED. REPORTS PAIN WORSES WITH MOVEMENT AND DEEP BREATHING. REPORTS CHRONIC BACK PAIN. MEDICATED WITH PRN MORPHINE PRESCRIBED. MED EDUCATION GIVEN. NO DISTRESS NOTED. SAFETY MEASURES IN PLACE. CALL LIGHT IS WITHIN REACH. WILL CONTINUE TO MONITOR.
--- NOTE | 2019-04-27 02:54 | NUR ---
CALLED PATIENT'S DAUGHTER JULIAN PER PATIENT'S REQUEST AND APPROVAL. UPDATED DAUGHTER ON PATIENT'S STATUS.
[2019-04-27 02:57] VITALS: BP 149/64
--- NOTE | 2019-04-27 05:55 | NUR ---
ADMINISTERED MORPHINE FOR 10/10 ABD AND BACK PAIN. ALSO GAVE ZOFRAN FOR NAUSEA. (SEE EMAR). MED EDUCATION GIVEN. NO DISTRESS NOTED. 100ML OUT OF COLOSTOMY. 800ML OUT OF NGT. CALL LIGHT WITHIN REACH. WILL CONT TO MONITOR.
[2019-04-27 06:00] LABS: BASOPHIL % 0.6 % (0-2); PLATELET COUNT 261 x10^3mcL (130-400)
[2019-04-27 06:33] VITALS: BP 136/59
[2019-04-27 06:53] LABS: RED CELL DISTRIBUTION WIDTH 16.3 % (11.5-14.5)
--- NOTE | 2019-04-27 07:05 | NUR ---
RECIEVED PT SITTING UP IN BED AND REPORTS NO DISTRESS, PAIN, OR SOB. A/O X4 WITH NO MEDEIROS OR DIZZINESS. TELE#6 CONNECTED TO PT, DENIES ANY CP OR PRESSURE. PT ON 2LPM O2 NC. R NARE NGT IN PLACE AND ON INTERMITTENT SUCTION. 100ML BROWN FLUID IN CANISTER AT THIS TIME. COLOSTOMY INTACT TO RLQ. D5NS RUNNING AT 50ML/HR IN FLA, INTACT AND PATENT WITH NO REDNESS OR INFLAMMATION. SAFETY PRECAUTIONS IN PLACE, CALL LIGHT WITHIN REACH, WILL MONITOR.
[2019-04-27 07:10] LABS: CALCIUM 8.4 mg/dL (8.5-10.1); CARBON DIOXIDE 34.1 mmol/L (21-32); CREATININE SERUM 1.1 mg/dL (0.6-1.0); MAGNESIUM 1.7 mg/dL (1.8-2.4); POTASSIUM SERUM 4.1 mmol/L (3.5-5.1)
--- NOTE | 2019-04-27 07:34 | NUR ---
RESTED IN SHORT INTERVALS THROUGHOUT THE NIGHT. NO DISTRESS NOTED. BREATHING EVEN AND UNLABORED ON 2L NC. NO SOB NOTED. ALL NEEDS AND CONCERNS ADDRESSED. SAFETY MEASURES IN PLACE. CALL LIGHT WITHIN REACH. ENDORSED CARE TO MALENA AVINA
--- NOTE | 2019-04-27 08:06 | NUR ---
RECIEVED ORDER FROM DR CRUZ TO ADMINISTER MEDICATIONS VIA NGT ALSO NOTIFIED DR CRUZ ABOUT MG LEVEL OF 1.7, WILL CARRY OUT ANY NEW ORDERS.
--- NOTE | 2019-04-27 08:50 | NUR ---
PT MEDICATED WITH MORPHINE PER EMAR FOR C/O SEVERE PAIN IN ABD, WILL REASSESS.
[2019-04-27 08:58] VITALS: BP 115/61
--- NOTE | 2019-04-27 10:15 | NUR ---
Patient to have SBFT, patient has NGT to suction, per dr Stein OK to have patient drink contrast with straw. Attending nurse Lilian aware. paint technician Moraima aware.
--- NOTE | 2019-04-27 10:20 | NUR ---
SBFT PROCEDURE STARTED ON PT. PER [facility] RADIOLOGY TECHS, NGT SUCTION HAS TO BE OFF DURING WHOLE PROCEDURE AND PT TO BE KEPT SITTING IN UPWARD POSITION. OK PER DR DAWSON THAT PT DRINK CONTRAST WITH STRAW FOR PROCEDURE. WILL MONITOR PT AND FOLLOW THROUGH WITH PROCEDURE INSTRUCTIONS.
--- NOTE | 2019-04-27 12:40 | NUR ---
GAVE PT MORPHINE AND ZOFRAN PER EMAR FOR C/O ABD PAIN AND NAUSEA, WILL REASSESS.
[2019-04-27 12:47] VITALS: BP 141/76
--- NOTE | 2019-04-27 13:16 | NUR ---
PT STABLE TO DISCHARGE PER MD ORDER. ALL CARES TOPLERATED WELL, VS WNL. NOLAN CATHETER D/C'D, PT TOLERATED WELL. IV REMOVED WITH CATHETER INTACT AND NO REDNESS OR INFLAMMATION NOTED TO SITE. PT EXPLAINED THAT SHE HAS TO URINATE ON OWN BEFORE SHE CAN LEAVE. ALSO WAITING FOR DAUGHTER TO GET BACK FROM LUNCH, WILL MONITOR.
--- NOTE | 2019-04-27 15:41 | NUR ---
MORPHINE GIVEN FOR C/O 910 BACK/ABD PAIN. DAUGHTER AT BEDSIDE. ALL CARES/CONCERNS ATTENDED TO. SAFETY PRECAUTIONS IN PLACE, CALL LIGHT WITHIN REACH, WILL CONTINUE TO MONITOR.
[2019-04-27 16:08] VITALS: BP 159/60
--- NOTE | 2019-04-27 16:31 | NUR ---
SBFT PROCEDURE DONE, OK TO TURN NGT SUCTION BACK ON PER [employer] DRAW BENCH OPERATOR HELPER. WILL CONTINUE TO MONITOR PT.
--- NOTE | 2019-04-27 18:24 | NUR ---
PT RESTING IN BED AT THIS TIME WITH CONTINUOS C/O 7-9 BACK/ABD PAIN. PAIN MANAGEMENT HAS BEEN IMPLEMENTED OUT THROUGHOUT ENTIRE SHIFT. ALL NEEDS AND CONCERNS HAVE BEEN MET. A/O X4, PT ON TELE#6 AND DENIES CP OR PRESSURE AT THIS TIME. PT ON 2 LPM O2 NC, NO SOB NOTED. NGT IN RIGHT NARE, IN PLACE AND ON MEDIUM INTERMITTENT SUCTION. CANISTER CHANGED WITH OUTPUT OF 800ML FLUID. COLOSTOMY IN PLACE AND DRAINING BROWN STOOL, 400 ML OUTPUT DURING SHIFT. D5NS RUNNING IN LFA AT 50ML/HR. SAFETY PRECAUTIONS IN PLACE, CALL LIGHT WITHIN REACH, WILL ENDORSE CARE TO NIGHT NURSE.
--- NOTE | 2019-04-27 19:03 | NUR ---
MORPHINE GIVEN PER EMAR FOR C/O 04/09 ABD/BACK PAIN. COLOSTOMY DRAINED. WILL ENDORSE REASSESSMENT OF PAIN TO NIGHT NURSE.
--- NOTE | 2019-04-27 19:15 | NUR ---
REPORT RECEIVED FROM DAY SHIFT RN. PATIENT WAS SEEN AND IS RESTING IN BED W/ DAUGHTER AT BEDSIDE. NGT TO RIGHT NARE ON MED INTERMITTENT SUCTION. DARK GREENISH/BROWN OUTPUT NOTED. A/OX4. ABLE TO MAKE NEEDS KNOWN. BREATHING EVEN AND UNLABORED ON 2L NC. NO SOB OR RESP DISTRESS NOTED. MOANING IN PAIN. C/O BACK AND ABD PAIN. PRN MORPHINE GIVEN BY DAY SHIFT RN. C/O NAUSEA. WILL ADMINSITERED ZOFRAN PER ORDER. IV TO THE LFA, 20G, INFUSING D5NS WELL. PATENT AND INTACT. NO REDNESS OR SWELLING NOTED. COLOSTOMY BAG W/ GREEN LIQUID OUTPUT NOTED. EMPTIED 200ML OUT. COMFORT AND SAFETY MEASURES IN PLACE. BED IS LOCKED AND IN THE LOWEST POSITION. SIDE RAILS UP X2. CALL LIGHT IS WITHIN REACH. WILL CONTINUE TO MONITOR.
--- NOTE | 2019-04-27 19:32 | NUR ---
C/O NAUSEA. NO EMESIS NOTED. PRN ZOFRAN ADMINISTERED PRESCRIBED. MED EDUCATION GIVEN. NO DISTRESS NOTED. SAFETY MEASURES IN PLACE. CALL LIGHT IS WITHIN REACH. WILL CONTINUE TO MONITOR.
--- NOTE | 2019-04-27 20:15 | NUR ---
DR ERICKSON INFORMED THAT SMALL BOWEL FOLLOW THROUGH SERIES WAS COMPLETED. PER ORDER, PATIENT WILL STILL REMAIN NPO.
[2019-04-27 21:56] VITALS: BP 141/65
--- NOTE | 2019-04-27 22:41 | NUR ---
PATIENT GROANING AND MOANING IN PAIN. PRN MORPHINE ADMINISTERED PRESCRIBED. NAUSEA NOTED WELL. PRN ZOFRAN NOT DUE. PATIENT IS AWARE. VSS. BREATHING EVEN AND UNLABORED. SAFETY MEASURES IN PLACE. CALL LIGHT IS WITHIN REACH. WILL CONTINUE TO MONITOR.
--- NOTE | 2019-04-28 00:05 | NUR ---
RESTING IN BED WITH EYES CLOSED. NO DISTRESS NOTED. MILD MOANING NOTED. DAUGHTER REPORTS PATIENT ALWAYS MOANS. BREATHING EVEN AND UNLABORED ON 2L NC. NGT TO MED INTERMITTENT SUCTION. NO OUTPUT IN CANNISTER NOTED. IVF INFUSING WELL. SAFETY MEASURES IN PLACE. CALL LIGHT IS WITHIN REACH. WILL CONTINUE TO MONITOR.
--- NOTE | 2019-04-28 01:13 | NUR ---
MG 1.7 NOT COVERED. PAGE GATED DR ERICKSON. NO NEW ORDERS AT THIS TIME.
--- NOTE | 2019-04-28 02:03 | NUR ---
C/O 10/1O ABD AND BACK PAIN AND NAUSEA. PRN MORPHINE AND ZOFRAN ADMINISTERED PRESCRIBED. NO DISTRESS NOTED. RT GAVE BREATHING TX WELL. BREATHING EVEN AND UNLABORED ON 2L NC. SAFETY MEASURES IN PLACE. CALL LIGHT IS WITHIN REACH. WILL CONTINUE TO MONITOR.
--- NOTE | 2019-04-28 03:08 | NUR ---
MAG 1.7 COVERED PO THROUGHT NGT. SUCTION STOPPED AT THIS TIME. NO OUTPUT NOTED IN CANNISTER. COLOSTOMY BAG EMPTIED: 350ML GREENISH SEMI-LIQUID STOOL OUT. NO DISTRESS NOTED. IVF INFUSING WELL. PATENT AND INTACT. NO REDNESS OR SWELLING NOTED. SAFETY MEASURES IN PLACE. CALL LIGHT IS WITHIN REACH. WILL CONTINUE TO MONITOR.
--- NOTE | 2019-04-28 04:10 | NUR ---
SUCTION TURNED BACK ON. ON MED INTERMITTENT SUCTION. GREENISH/BROWN OUTPUT NOTED IN TUBINB. NO OUTPUT IN CANNISTER. NO DISTRESS NOTED. BREATHING EVEN AND UNLABORED ON 2L NC. RESTING IN BED WITH EYES CLOSED. SAFETY MEASURES IN PLACE. CALL LIGHT WITHIN REACH. WILL CONTINUE TO MONITOR.
[2019-04-28 05:39] VITALS: BP 113/47
--- NOTE | 2019-04-28 06:07 | NUR ---
MEDICATED WITH PRN ZOFRAN AND MORPHINE PRESCRIBED. C/O NAUSEA W/ 05/09 ABD AND BACK PAIN. MOANING AND GROANING NOTED. TREMORS TO LLE NOTED. NO DISTRESS NOTED. BREATHING EVEN AND UNLABORED. SAFETY MEASURES IN PLACE. WILL CONTINUE TO MONITOR.
--- NOTE | 2019-04-28 06:39 | NUR ---
RESTED IN INTERVALS THROUGHOUT THE NIGHT. NO ACUTE CHANGES NOTED. NO DISTRESS NOTED. BREATHING EVEN AND UNLABORED ON 2L NC. NO SOB NOTED. COLOSTOMY TO RLQ W/ 550 ML OUT. RIGHT NARE NGT ON MED INTERMITTENT SUCTION WITH 200ML OUT. IVF (D5NS @50ML/HR) INFUSING WELL. PATENT AND INTACT. PATIENT NPO. INSULIN COVERAGE GIVEN PER DR ERICKSON. COMFORT AND SAFETY MEASURES IN PLACE. CALL LIGHT IS WITHIN REACH. WILL ENDORSE CARE TO DAY SHIFT RN.
[2019-04-28 06:51] LABS: BASOPHIL % 0.6 % (0-2); PLATELET COUNT 255 x10^3mcL (130-400)
[2019-04-28 06:58] LABS: RED CELL DISTRIBUTION WIDTH 16.4 % (11.5-14.5)
[2019-04-28 07:11] LABS: CALCIUM 7.7 mg/dL (8.5-10.1); CARBON DIOXIDE 28.4 mmol/L (21-32); CREATININE SERUM 1.1 mg/dL (0.6-1.0); MAGNESIUM 1.4 mg/dL (1.8-2.4); PHOSPHOROUS 3.9 mg/dL (2.5-4.9); POTASSIUM SERUM 4.1 mmol/L (3.5-5.1)
--- NOTE | 2019-04-28 08:00 | NUR ---
SHIFT ASSESSMENT DONE. PATIENT ALERT/OREITNED X3; FRISIAN SPEAKING. ABLE TO MADE NEEDS KNOWN. TELE#6; SR; HR = 97/MIN. NO RESP DISTRESS ON 2L VIA N/C. NGT IN PLACE.
[2019-04-28 08:59] VITALS: BP 156/61
--- NOTE | 2019-04-28 09:50 | NUR ---
DR. Yasmany BENJAMIN SAW PATIENT. NG TUBE D/C'D PER ORDER. TOTAL 50CC YUNI MEASURED THIS SHIFT.
[2019-04-28 12:46] VITALS: BP 101/59
--- NOTE | 2019-04-28 12:49 | NUR ---
C/O ABD PAIN AND NAUSEA. [id number] AND ZOFRAN 4MG IVP GIVEN. CONTINEU MONITOR.
--- NOTE | 2019-04-28 16:30 | NUR ---
COLOSTOMY BAG EMPTIED W/ 250CC OF SEMI-LIQUID STOOL MEASURED. MAG RIDER 4GM IV GIVEN PER ORDER.
[2019-04-28 16:55] VITALS: BP 112/49
--- NOTE | 2019-04-28 19:00 | NUR ---
ANXIETY. TOLERATED CLEAR LIQUID DIET. C/O ABD PAIN AND NAUSEA, BUT NO VOMITING. DR. ERICKSON NOTIFED AND SAW PATIENT.
--- NOTE | 2019-04-28 19:02 | NUR ---
PATIENT CRYING AND ANXIETY. C/O ABD PAIN ON 05/09; MORPHINE 2MG IVP GIVEN. DR. CLAUDIOED AWARE OF.
--- NOTE | 2019-04-28 19:10 | NUR ---
REPORT RECEIVED FROM DAY SHIFT RN. PATIENT WAS SEEN RESTING IN BED WITH DAUGHTER AT BEDSIDE. PATIENT IS SITTING ON SIDE OF BED MOANING AND GROANING IN PAIN. REPORTS 10/10 PAIN IN ABD RADIATING TO BACK. DAY SHIFT RN MEDICATED WITH PRN MORPHINE 2MG. BREATHING EVEN AND UNLABORED ON 2L NC. NO SOB OR RESP DISTRESS NOTED. DENIES CHEST PAIN/PRESSURE. IV TO THE RH INFUSING D5NS WELL. PATENT AND INTACT. NO REDNESS OR SWELLING NOTED. COLOSTOMY TO RLQ W/ GREEN SEMI-LIQUID STOOL. EMPTIED 200ML OUT. COMFORT AND SAFETY MEASURES IN PLACE. CALL LIGHT IS WITHIN REACH. BED IS LOCKED AND IN THE LOWEST POSITION SIDE RAILS UP X2. PER DR SALDANA, IF MORPHINE 2MG IVP IS NOT EFFECT, SHE WILL CHANGE THE DOSE. WILL CONTINUE TO MONITOR.
--- NOTE | 2019-04-28 19:10 | NUR ---
C/O NAUSEA. NO VOMITUS. ZOFRAN 4MG IVP GIVEN. DR. SALDANA SAW PATIENT. DANNY PIZANO TO [facility] NURSE.
--- NOTE | 2019-04-28 20:30 | NUR ---
PATIENT STILL GROANING AND MOANING IN PAIN. STATES MORPHINE ISN'T EFECTIVE. NOTIFIED DR SALDANA. SHE WILL PLACE NEW PAIN MEDICATION ORDERS. RIGHT LOWER BACK SKIN TEAR AND SMALL OPEN WOUND TO SCARAL COCCYX. BOTH CLEANSED WITH NS, ZGUARD APPLIED, AND COVERED WITH DRESSING. PATIENT IS REFUSING WOUND PHOTOS TO BE TAKEN AT THIS TIME DUE TO HER 10/10 PAIN. WILL TRY TO TAKE WOUND PHOTOS LATER. DAUGHTER STILL AT BEDSIDE.
--- NOTE | 2019-04-28 20:41 | NUR ---
ONE TIME DOSE OF MORPHINE 2MG IVP GIVEN PRESCIRBED. (SEE EMAR). MED EDUCATION GIVEN. PATIENT WAS STILL MOANING AND GROANING IN PAIN. TEARFUL WELL. BREATHING EVEN AND UNLABORED. DAUGHTER AT BEDSIDE. SAFETY MEASURES IN PLACE. CALL LIGHT IS WITHIN REACH. WILL CONTINUE TO MONTIOR.
[2019-04-28 21:05] VITALS: BP 139/60
--- NOTE | 2019-04-28 23:30 | NUR ---
PATIENT RESTING IN BED LAYING ON LEFT SIDE. NO DISTRESS NOTED. NO MOANING OR GROANING NOTED. BREATHING EVEN AND UNLABORED ON 2L NC. EVEN CHEST RISE AND FALL. SAFETY MEASURES IN PLACE. NO S/S OF PAIN NOTED. CALL LIGHT WITHIN REACH. WILL CONTINUE TO MONTIOR.
--- NOTE | 2019-04-29 00:07 | NUR ---
PATIENT CALLED AND IS AWAKE. REPORTING PAIN W/ NAUSEA. WENT INTO PATIENT'S ROOM AND PATIENT HAD AN EPISODE OF BILIOUS EMESIS. PRN ZOFRAN AND MORPHINE ADMINSITERED PRESCRIBED. MED EDUCATION GIVEN. PATIENT SITTING ON SIDE OF THE BED. COLOSTOMY EMPTIED 100ML OUT. PATIENT AGREED TO HAVE WOUND PHOTOS TAKEN. SCRATCHES/ SKIN TEAR NOTED TO RIGHT LOWER BACK. OPEN WOUND TO SACRAL-COCCYX MEASURING 1.0CMx1.0CM. DRESSING APPLIED TO BOTH AREAS. DR ERICKSON NOTIFIED ABOUT NEW WOUNDS. MARY ANNE HARPER ASSISTED PATIENT ONTO BEDPAN.
--- NOTE | 2019-04-29 00:50 | NUR ---
RESTING IN BED COMFORTABLY. MOANING IMPROVED. NO DISTRSS NOTED. NOT VOMITING ANYMORE. SAFETY MEASURES IN PLACE. CALL LIGHT IS WITHIN REACH. WILL CONTINUE TO MONITOR.
--- NOTE | 2019-04-29 03:37 | NUR ---
RESTING IN BED WITH EYES CLOSED. NO DISTRESS NOTED. BREATHING EVEN AND UNLABORED ON 2L NC. NO MOANING OR FACIAL GRIMACING NOTED. NO S/S OF PAIN. SAFETY MEASURES IN PLACE. CALL LIGHT IS WITHIN REACH. WILL CONTINUE TO MONITOR
--- NOTE | 2019-04-29 04:21 | NUR ---
PATIENT IS VOMITING. AROUND 1000ML OF BILIOUS EMESIS. PRN ZOFRAN AND MORPHINE ADMINISTERED PRESCRIBED. BREATHING EVEN AND UNLABORED ON 2L NC. NO SOB NOTED. SAFETY MEASURES IN PLACE. CALL LIGHT IS WITHIN REACH. WILL CONTINUE TO MONITOR.
[2019-04-29 05:41] VITALS: BP 113/47
--- NOTE | 2019-04-29 06:17 | NUR ---
RESTED IN SHORT INTERVALS THROUGHOUT THE NIGHT. NO ACUTE CHANGES NOTED. NO DISTRESS NOTED. BREATHING EVEN AND UNLABORED ON 2L NC. NO SOB NOTED. IVF INFUSING WELL. PATENT AND INTACT. NO REDNESS OR SWELLING NOTED. DENIES CHEST PAIN. C/O ABD/BACK PAIN AND NASUEA IN INTERVALS THROUGHOUT THE NIGHT. EMESIS 1000ML. COLOSTOMY 50ML OUT. WOUND DRESSINGS, CDI. ALL NEEDS AND CONCERNS ADDRESSED. SAFETY MEASURES IN PLACE. CALL LIGHT IS WITHIN REACH. WILL ENDORSE CARE TO DAY SHIFT RN
[2019-04-29 06:47] LABS: BASOPHIL % 0.2 % (0-2); PLATELET COUNT 244 x10^3mcL (130-400)
[2019-04-29 06:53] LABS: RED CELL DISTRIBUTION WIDTH 16.4 % (11.5-14.5)
[2019-04-29 07:19] LABS: CALCIUM 8.1 mg/dL (8.5-10.1); CARBON DIOXIDE 28.6 mmol/L (21-32); CHLORIDE SERUM 105 mmol/L (98-107); CREATININE SERUM 0.9 mg/dL (0.6-1.0); GFR1 > 60 mL/min; GLUCOSE SERUM 186 mg/dL (74-106); MAGNESIUM 2.2 mg/dL (1.8-2.4); POTASSIUM SERUM 3.6 mmol/L (3.5-5.1); SODIUM SERUM 142 mmol/L (136-145)
--- NOTE | 2019-04-29 07:30 | NUR ---
PT IS AAOX4. RESP EVEN, SHALLOW AND UNLABORED. LUNG SOUNDS DIMINISHED BILATERALLY. PT ON 02 N/C AT 2LPM. NO COUGH OR SOB NOTED AT THIS TIME. TELE [address] READING SINUS TACH HR 105. PT DENIES C/P, PRESSURE AND PALPITATIONS. ABDOMEN ROUNDS, SOFT, TENDER. PT HAS C/O N/V. PT DX WITH SMALL BOWEL OBSTRUCTION. PT ON CLEAR LIQUID DIET. PT HAS COLOSTOMY TO R LOWER ABDOMEN, COLOSTOMY BAG IN PLACE WITH GAS AND LIQUID 200ML. COLOSTOMY BAG EMPTIED AT THIS TIME. PT HAS BUE TRACE EDEMA. PERIPHERAL PULSE MODERATELY PALPABLE. IVF RUNNING TO , SITE WNL. NO S/S OF INFECTION OR INFILTRATION. PT HAS SMALL R LOWER BACK SKIN ABRASION, COVERED WITH CDI ISLAND DRESSING. NO S/S OF INFECTION OR SWELLING NOTED. PT HES SACRAL-COCCYX SKIN TEAR CLOSED BY SCAB. CLEANSED AREA WITH N/S AND COVERED WITH CDI OPTIFORM DRESSING. PT STATES SHE HAS ABDOMINAL PAIN BUT SHAYLA WAIT FOR A WHILE BEFORE TAKING PAIN MEDICATION. BED ALARM ON. CALL LIGHT WITHIN REACH. FALL PROTOCOL MAINTAINED. BED IN LOWEST POSTION.
--- NOTE | 2019-04-29 08:19 | NUR ---
RECEIVED ORDER FROM MICHELLE GARCIA. GIVE PAIN MEDICATION NOW DUE TO SEVERE PAIN ABDOMINAL PAIN 05/09. MORPHINE 4MG IVP GIVEN 10 MINUTES BEFORE NEXT DOSE TO BE DUE. PT RESPOSITION FOR COMFORT AND VERBALIZED RELIEF FROM PAIN IMMEDIATELY. RESP EVEN AND UNLABORED. CALL LIGHT WITHIN REACH.
--- NOTE | 2019-04-29 08:30 | NUR ---
MORPHINE 4MG IVP GIVEN OVER 5 MINUTES FOR SEVERE ABDOMINAL PAIN 05/09. ZOFRAN 4 MG IVP GIVEN FOR N/V. PT VOMITED 300ML CLEAR YELLOW FLUID. COLOSTOMY BAG NOTED WITH 400ML YELLOW FLUIDS. BAG DRAINED, CLEANSED EXTERIOR AND CLOSED. PT VERBALIZED RELIEF FROM PAIN AND IS NOW SLEEPING. RESP EVEN AND UNLABORED. WILL CONTINUE TO MONITOR. CALL LIGHT WITHIN REACH.
[2019-04-29 08:44] VITALS: BP 143/64
--- NOTE | 2019-04-29 09:09 | NUR ---
DUE MEDS GIVEN AND TOLERATED WELL. FERROUS SULFATE 325MG PO HELD, PT STATED SHE IS CONCERNED IT WILL MAKE HER NASEOUS. PT REPOSITIONED FOR COMFORT. COLOSTOMY BAG DRAINED DUE TO ACCUMULATED GAS. RESP EVEN AND UNLABORED. CALL LIGHT WITHIN REACH. WILL CONTINUE TO MONITOR.
--- NOTE | 2019-04-29 09:51 | NUR ---
DR. MOSS MADE AWARE FESO4 PO HELD THIS MORNING. DR. MOSS MET WITH PT AND DISCUSSED POC. PT COLOSTOMY BAG FULL THIS A.M. AND EMPTIED 2 TIMES. PT DOES NOT HAVE BOWEL OBSTRUCTION AND IS HIGH RISK FOR COMPLICATIONS IF SURGERY WERE TO BE DONE. PT AGREED WITH POC.
--- NOTE | 2019-04-29 11:01 | NUR ---
RECEIVED ORDER FROM JOSE HUMPHREYS NP ATIVAN 1MG IVP Q 6 HOURS PRN FOR AGITATION. ORDER NOTED AND CARRIED OUT. PT MADE AWARE OF NEW ORDER.
--- NOTE | 2019-04-29 11:19 | NUR ---
MORPHINE 4 MG IVP GIVEN FOR ABDOMEN PAIN 05/09. ZOFRAN 4MG IVP X1 NOW TO PREPARE FOR CONTRAST MEDIA TO BE CONSUMED PO. COAT ROOM ATTENDANT HERE AT THIS TIME TO START THE SMALL BOWEL FOLLOW THROUGH. PT EDUCATED ON THE PROCEDURE. CALL LIGHT WITHIN REACH. WILL CONTINUE TO MONITOR.
[2019-04-29 12:45] VITALS: BP 119/58
--- NOTE | 2019-04-29 12:56 | NUR ---
COLOSTOMY BAG EMPTIED OF 300 ML FLUID AND GAS, DUE MEDS GIVEN AND TOLERATED WELL. RESP EVEN AND UNLABORED. CALL LIGHT WITHIN REACH.
[2019-04-29 14:59] VITALS: Ht 160 cm; Wt 67.3 kg
--- NOTE | 2019-04-29 15:12 | NUR ---
Discount pharmacy card and list to low cost medical clinics given to patient by Jill.
--- NOTE | 2019-04-29 15:50 | NUR ---
TYLENOL 65O MG PO GIVEN FOR ACHING H/A 11/07. RESP EVEN AND UNLABORED. PT ENCOURAGED TO DRINK FLUIDS. PT VERBALIZED UNDERSTANDING. CALL LIGTH WITHIN REACH.
--- NOTE | 2019-04-29 16:09 | NUR ---
AIR MATRESS PLACED ON PT'S BED. COLOSTOMY BAG DRAINED OF 300ML THICK GREENISH WHITE LIQUID. PT TOLERATED PROCEDURES WELL.
[2019-04-29 16:49] VITALS: BP 104/82
--- NOTE | 2019-04-29 17:15 | NUR ---
ZOFRAN 4MG IVP GIVEN FOR NAUSEA. B/S 164 3 UNITS INSULIN GIVEN. PT DENIES PAIN AT THIS TIME. FAMILY VISTING AT BEDSIDE. CALL LIGHT WITHIN REACH.
--- NOTE | 2019-04-29 18:24 | NUR ---
MORPHINE 4 MG IVP GIVEN FOR ABDOMINAL PAIN 02/06. RESP EVEN AND UNLABORED. TELE [address] READING SINUS TACH. PT DENIED C/P. IVF RUNNING TO . SITE WNL. NO S/S OF INFECTION NOTED. CALL LIGHT WITHIN REACH. BED ALARM ON. FALL PROTOCOL IN PLACE. FAMILY AT BEDSIDE. BED IN LOWEST POSTION. WILL ENDORSE ALL CARE TO NOC RN.
--- NOTE | 2019-04-29 19:30 | NUR ---
PT SEEN, RESTING IN BED, ALERT AND ORIENTED X 4 AND VERY VERBALLY RESPONSIVE, DENIES HEADACHE OR DIZZINESS, BREATHING EVEN AND UNLABORED, LUNG SOUNDS DIMINISHED WITH EXP WHEEZING, ON O2 2L VIA NC WITH NO RESP DISTRESS NOTED, RT PROTOCOL, IVF INFUSING WELL, PULSES PALPABLE, EDEMA NOTED TO BUE AND BLE, GENERALIZED WEAKNESS WITH LEFT SIDE WEAKNESS, ON AIR MATTRESS, ABD SOFT AND ROUND WITH ACTIVE BS, RT SIDE ABD WITH COLOSTOMY NOTED WITH GREENISH OUTPUT, INCONTINENT AT TIMES, HEALED MIDLINE ABD INCISION AND RT LOWER BACK SKIN TEAR AND ABRASION, OPEN WOUND TO SACRAL COCCYX AREA, OPTIFORM IN PLACE, ABLE TO REPOSITION HERSELF, NO DISTRESS NOTED, WILL KEEP TO MONITOR.
[2019-04-29 19:39] VITALS: BP 113/56
--- NOTE | 2019-04-30 03:57 | NUR ---
TOTAL BED BATH GIVEN, EMPTIED RT SIDE COLOSTOMY WITH TOTAL 450 ML GRENNISH WATERY WITH SOME SEDIMENTS, C/O OF SEVERE ABD PAIN AND N/V, MORPHINE AND ZOFRAN GIVEN VIA SLOWLY IVP, OPTIFORM CHANGED ON SACRAL COCCYX AREA, NO DISTRESS NOTED, WILL KEEP TO MONITOR.
[2019-04-30 04:04] VITALS: BP 115/48
--- NOTE | 2019-04-30 05:25 | NUR ---
PT ASLEEP BUT EASILY AROUSABLE, SLEPT MOST OF NIGHT, C/O OF ABD PAIN AND N&V X 1 AND MEDIACTED WITH MORPHINE AND ZOFRAN WITH GOOD RELIEF, GOOD OUTPUT FROM RT SIDE COLOSTOMY, MORNING BLOOD SUGAR: 123 MG/DL WITH NO RISS, NO DISTRESS NOTED, WILL KEEP TO MONITOR.
--- NOTE | 2019-04-30 07:10 | NUR ---
RECEIVED REPORT FROM ANGELA AVINA AT BEDSIDE, PT IN BED IN NO ACUTE DISTRESS
--- NOTE | 2019-04-30 07:12 | NUR ---
BEDSIDE HANDOFF REPORT GIVEN TO THI-RN, ALL QUESTIONS ANSWERED AND CONCERNS ADDRESSED.
--- NOTE | 2019-04-30 07:21 | NUR ---
PT IN BED, IN NO ACUTE DISTRESS, AXOX4, VERBAL, ABLE TO MAKE NEEDS KNOWN, CALM AT THIS TIME, PERRLA, NO REDNESS/DRAINAGE, NO FACIAL DROOP/SLURREDN SPEECH NOTED, DENIED PAIN/PALPITATION/MEDEIROS, DENIED N/V/D, RESP EVEN, NO SOB/COUGH, 2L/MIN , NC, 94%, RT, TELE #6, NSR, HR-68 AT THIS TIME, CHEST RISE SYMMETRICALLY, ABD ROUND AND NON-TENDER TO TOUCH, BS ACTIVE X 4, COLOTOMY RLQ, LIQUID GREENISH IN COLLECTING BAG, PALP PULSES, CAP REFILL < 3S, SKIN C/D/W, SEE SKIN ASSESSMENT, IV PATENT AND INFUSIGN WELL, DRESSING CDI, TURN Q2H, LALM, GENERALIZED WEAKNESS, ALL NEEDS ADDRESSED AT THIS TIME, SAFETY PROTOCOL FOLLOWED, CONTINUE TO MONITOR
[2019-04-30 07:45] LABS: BASOPHIL % 0.6 % (0-2); PLATELET COUNT 258 x10^3mcL (130-400)
[2019-04-30 07:58] LABS: CALCIUM 7.5 mg/dL (8.5-10.1); CARBON DIOXIDE 25.1 mmol/L (21-32)
[2019-04-30 08:07] LABS: POTASSIUM SERUM 2.8 mmol/L (3.5-5.1)
--- NOTE | 2019-04-30 08:10 | NUR ---
RECEIVED REPORT FROM LAB, K-2.8, STOPER TOMMY MADE AWARE, NEW ORDER OBTAINED, PT MADE AWARE, CONTINUE TO MONTIOR
[2019-04-30 08:24] LABS: RED CELL DISTRIBUTION WIDTH 16.2 % (11.5-14.5)
[2019-04-30 09:04] VITALS: BP 94/44
--- NOTE | 2019-04-30 09:13 | NUR ---
COLOSTOMY BAG DRAINED, NOTED 425CC GREENINSH LIQUID, PT IN BED IN NO ACUTE DISTRESS
--- NOTE | 2019-04-30 09:24 | NUR ---
PT REPORTED PAIN, 7/10, GENERALIZED PAIN, DULL, MEDICATED PER MD PRN ORDER VIA EMAR, TOLERATED WELL, NO ASE NOTED AT THIS TIME, EDUCATED PT R/T MED, ASE AND MONITOR, VRBALLY UNDERSTANDING, ALL NEEDS ADDRESED AT THIS TIME, TURN Q2H, CONTINUE TO MONITOR
--- NOTE | 2019-04-30 09:39 | NUR ---
AM MED GIVEN PER MD ORDER VIA EMAR, TOLERATED WELL, EDUCATION R/T MED, ASE AND MONITOR GIVEN TO PT, VERBALLY UNDERSTANDING, ALL NEEDS ADDRESSED AT THIS TIME, CONTINUE TO MONITOR
--- NOTE | 2019-04-30 12:55 | NUR ---
PT HAD LUNCH W/ FULL LIQUID DIET, TOLERATED WELL, REPOTED NO DISCOMFORT AT THIS TIME, PT LYING IN BED W/ NO ACUTE DISTRESS, COLOSTOMY BAG DRAINED, NOTED 450CC GREENISH LIQUID, CONTINUE TO MONITOR
[2019-04-30 13:20] VITALS: BP 90/40
--- NOTE | 2019-04-30 14:07 | NUR ---
Initial Nutrition Assessment: 219T/B MART MENDOZAESTEBAN LIN IA HR Dx: Bowel obstruction PMHx: diabetes mellitus, hypertension, hypercholesterolemia, COPD, CVA w/residual left hemiparesis, hypothyroidism, degenerative arthritis, peripheral vascular disease, pulmonary embolism in February 2018, ESBL UTI, mesenteric ischemia 2yrs ago status post colectomy and ileostomy placement and SBO in May/2018 - [place] [facility] [place]- PSHx: Cholecystectomy, Hernia Repair, Colostomy Labs: K 2.8L, BG 133H, BUN 5.0L, CA 7.5L, TG 256H, HGB 10.4L Meds: Ativan, Colace, D 50%, ferrous sulfate, flagyl, Humulin, lactinex, Lipitor, morphine, zofran Diet: Clear liquid diet PO intake since admission: (04/29) breakfast 70%, (04/27) NPO Ht: 160.02 cm (63") Wt: 67.3 kg (148#) BMI: 26.3 kg/m2 Bed scale: 67 kg IBW: 115# (52 kg) %IBW: 128 UBW: 67-68 kg Age: 63/F Food Allergies: NKFA Skin: open wound to sacral coccyx Brandan: 14 Edema: +1 BLE GI: colostomy RLQ Last BM: 04/30 Pt is a 63yo female with multiple medical problems including diabetes mellitus, hypertension, hypercholesterolemia, COPD, CVA w/residual left hemiparesis, hypothyroidism, degenerative arthritis, peripheral vascular disease, pulmonary embolism in February 2018, ESBL UTI, mesenteric ischemia 2yrs ago status post colectomy and ileostomy placement and SBO in May/2018 - transferred [place] [facility] [place]- who was brought to the ER by [facility] ambulance from home with complaints of severe abdominal pain for about [address] Note (04/30): Per progress note (04/29), Patient continues to vomit and unable to tolerate clear liquids. Patient said that her appetite has improved now and she does not have any N/V/D/C at this time. Per RN Vicki, patient's diet has been progressed to full liquid for lunch and cardiac for dinner. Patient is likely to be D/C tomorrow if she tolerates her diet. Problem with: N/V/D/C: no Problems with: Chewing: Swallowing: none Current appetite: good Recent wt change: none %wt change: n/a Vitamin/Supplement use: iron Special diet at home: Diabetic, patient says her daughter cooks food at home Physical activity: sedentary Nutrition education given: [facility] handout on "Type 2 DM Nutrition Therapy' was provided to the patient. Food-drug interactions: Colace: high fiber w/ 4447-6898 ml fluid/day Education given: n/a Estimated Nutritional Needs Based on current body weight (67 kg) Energy: 2708-3531 kcal/day (25-30 kcal/kg for maintenance) Protein: 80-94 g/day (1.2-1.4 g/kg for maintenance) Fluid: 1231-1944 mL/day (1 mL/kcal) Nutrition Diagnosis: 1. Increased nutrient needs related to sacral wound as evidenced by estimated calorie and protein needs. Intervention 1. Recommend progressing to CCHO, cardiac diet. 2. Recommend Ray BID for wound healing Discussed recommendations with FARM CONTRACTOR Dee Monitor/Evaluate Goal: PO intake at least 75% of estimated needs Monitor: PO intake, Labs, GI function F/U in 3-5 days as moderate risk /-6
--- NOTE | 2019-04-30 14:08 | NUR ---
1. Recommend progressing to CCHO, cardiac diet. 2. Recommend Ray BID for wound healing Discussed recommendations with MICHELLE Price
--- NOTE | 2019-04-30 14:45 | NUR ---
SEEN BY WOUND NURSE STEFAN RN, SKIN ASSESSMENT DONE, DRESSING CHANGED, TURNED Q2H, TOLERATED WELL, CONTINUE TO MONITOR
--- NOTE | 2019-04-30 15:06 | NUR ---
PHYSICAL THERAPY DAILY NOTES CO-SIGN All documentation done by the Workers Compensation Manager for 04/30/19 has been reviewed. I agree with the documentation. Reviewed/Co-Signed by: Jade Curry PT Documentation Done by:CRISTIAN BURRIS PTA
--- NOTE | 2019-04-30 16:18 | NUR ---
WOUND CARE EVALUATION NOTE: SKIN ASSESSMENT DONE TO THIS 63 Y/O FEMALE WITH COLOSTOMY TO RLQ ABD, COLOSTOMY IS FUNCTIONING WITH LIGHT YELLOW LIQUID STOOL OUTPUT, PERISTOMA SKIN INTACT. POSTERIOR TRUNK AREA WITH MULTIPLE DRY SCRATCHES DARYA, DENIES OF ITCHNESS. RIGHT AND LEFT BUTTOCKS BLANCHABE REDNESS, SACRALCOCCYX 1X1CM DRY BROWN SCAB, BISHOP-WOUND SKIN INTACT, NO ACTIVE OPEN ULCER TO THE AREA. RECOMMENDATIONS: -CHANGE COLOSTOMY PER PROTOCAL PRN LEAKING -APPLY HYDRAGUARD TO UPPER TRUNK ANTERIOR AND POSTERIOR AREAS BID AND ANDRE -APPLY OPTIFOAM TO SACRALCOCCYX AREAS QD AND PRN IS SOILING RECOMMENDATIONS DISCUSSED WITH PRIMARY RN AND PT. PT. VERBALIZES UNDERSTANDING
--- NOTE | 2019-04-30 16:20 | NUR ---
COLOSTOMY BAG DRAINED, NOTED 475CC GREENINSH LIQUID, PT IN BED IN NO ACUTE DISTRESS
[2019-04-30 16:37] VITALS: BP 108/38
--- NOTE | 2019-04-30 18:06 | NUR ---
PT IN BED, IN NO ACUTE DISTRESS, VERBAL, NO FACIAL DROOP/SLURRED SPEECH, RESP EVEN, NO SOB/COUGH, TELE, DENIED CP/PALPITATION/MEDEIROS, DENIED N/V/D, SKIN C/D/W, IV PATENT AND INFUSING WELL, DRESSING CDI, ALL NEEDS ADDRESSED AT THIS TIME, SAFETY PROTOCOL FOLLOWED, WILL ENDORSE TO ONCOMING RN
--- NOTE | 2019-04-30 19:20 | NUR ---
RECIEVED PT FROM KAILYN BECKWITH. PT IS AAOX4. PT IS WOLOF SPEAKING ONLY. DAUGHTER WAS PRESENT DURING ASSESSMENT. PT DENIES ANY HEADACHE OR DIZZINESS AT THIS TIME. PT HAS DIMINISHED BREATH SOUNDS IN BOTH LOWER LOBES. PT DENIES S/S OF CHEST PAIN OR DISCOMFORT AT THIS TIME. PT ON TELE #6 WITH NSR. PT HAS TRACE EDEMA BLE. BILATERAL SCD'S ARE IN PLACE. PT IS ON ELIQUIS. PT IS OBESE WITH BOWEL SOUNDS PRESENT IN ALL 4 QUADRANTS. COLOSTOMY BAG ON ABD RIGHT SIDE HAS WATERY DRAINAGE THAT IS YELLOW. LAST DRAINAGE WAS 560CC. PT IS INCONTINENT. PT IS ON AIR MATTRESS AND ABLE TO REPOSITION HERSELF. CALL LIGHT WITHIN REACH.
[2019-04-30 20:17] VITALS: BP 108/44
--- NOTE | 2019-05-01 03:50 | NUR ---
ROUNDED ON PT. PT IS SLEEPING, BUT AROUSABLE. DENIES ANY DISCOMFORT AT THIS TIME. CALL LIGHT WITHIN REACH.
[2019-05-01 05:50] VITALS: BP 104/52
--- NOTE | 2019-05-01 06:08 | NUR ---
PT WAS IN AND OUT OF SLEEP ALL NIGHT. PT HAS POOR APPETITE WITH REGULAR DIET. PT STILL HAD ABDOMINAL PAIN. ADMINISTERED MORPHINE 4MG AND ZOFRAN 4MG X1 WITH GOOD RELIEF. MORNING BS IS 171 WITH RISS 3 UNITS. COLOSTOMY BAG HAD WATERY DRAINAGE OF 1900CC. NO RESPIRATORY DISTRESS OR SOB NOTED AT THIS TIME. WILL CONTINUE TO MONITOR.
[2019-05-01 06:14] LABS: BASOPHIL % 0.4 % (0-2); PLATELET COUNT 262 x10^3mcL (130-400)
[2019-05-01 06:26] LABS: RED CELL DISTRIBUTION WIDTH 16.3 % (11.5-14.5)
[2019-05-01 06:29] LABS: CALCIUM 7.7 mg/dL (8.5-10.1); CARBON DIOXIDE 22.6 mmol/L (21-32); CHLORIDE SERUM 109 mmol/L (98-107); CREATININE SERUM 0.9 mg/dL (0.6-1.0); GFR1 > 60 mL/min; GLUCOSE SERUM 174 mg/dL (74-106); SODIUM SERUM 140 mmol/L (136-145)
--- NOTE | 2019-05-01 07:14 | NUR ---
BEDSIDE HANDOFF REPORT GIVEN TO KAILYN MOSS. ALL QUESTIONS AND CONCERNS ADDRESSED.
--- NOTE | 2019-05-01 08:00 | NUR ---
RECIEVED SPAINISH SPEAKING ONLY PATIENT WITH A COLOSTOMY THAT HAS LIQUID STOOL IN THE BAG AND THE STOOL IS DARK BROWN IN COLOR. THE ABDOMEN IS DISTENDED BUT SOFT AND PATIENT AHS NO INDICATION OF PAIN A THIS TIME. PATIENT HAS BEEN ON BEDREST AND APPARENTLY BEDBOUND THIS ADMIT. THE DAUGHTER CALLED AND WANTED TO SPEAK WITH THE PATIENT BUT SHE WAS NOT ANSWERING HER PHONE. IV INTACT AND PATIENT HAS VITALS AT 104/52, 97.7, 84, 18, 98% ON NASAL CANNULA AT 2 LITER. PATIENT SHE GROSSLY OBESE AND WITH AN LARGE NECK AND SHE HAS HER HEAD OF BED UP. THE CHEST XRAY ON 04/26 SHOWED HYPER INFLATION AND COURT BAILIFF OF COPD. PATIENT WITH HISTORY OF COPD, HTN, ASTHMA CVA AND BOWEL RESECTION AND HERNIA REPIAR. PATIENT HAS CHRONIC BACK PAIN BUT DID NOT COMPLAIN OF PAIN AT THIS TIME. PATIENT HAS A HEALED MIDLINE WOUND AND A SKIN TREAT TO THE RIGHT LOWER BACK. PATIENT HAS BEEN ON ELIQUIS AND HAS AHD BEEN USING THE BEDPAN AND THE UA SHOW LEUKOCYTES, WBC, AND RBC IN THE URINE.; PATIENT HAS BEEN SINUS RHYTHMA AND SINUS TACH ON THE MONITOR.
[2019-05-01 09:13] VITALS: BP 105/56
--- NOTE | 2019-05-01 10:25 | NUR ---
PATIENT HAS BEEN ABLE TO TAKE HER MEDICATIONS INDICATED. NO INDICATION OF PAIN OR DISTRESS AT THIS TIME.
[2019-05-01 10:58] VITALS: BP 104/52
[2019-05-01 12:00] VITALS: BP 100/44
--- NOTE | 2019-05-01 13:41 | NUR ---
CALLED THE PATIENT DAUGHTER TO VERIFY PATIENT IS TAKING COUMADIN. PER THE PHARMACY WHEN CALLED THE PATIENT HAS NOT FILL THE PRESCRIPTION SINCE30 JANUARY. GAVE DOSING ON ANOTHER CALL TO CLINICAL ESTHETICIAN AND SHE WILL HAVE AN CAR MECHANIC WRITE A PRESCRIPTION FOR THAT AND THE PROTONIX. DAUGHTER IS COMING TO COUNSELING DEPARTMENT CHAIR.
--- NOTE | 2019-05-01 15:09 | NUR ---
PATIENT DAUGHTER CALLED AGAIN THE PATIENT REQUESTED. IV REMOVED AND TELE RETURNED TO THE MONITOR STATION. DAUGHTER STATES SHE IS IN THE PARKING LOT PARKING AND WILL BE UP IN A FEW MINUTES. PRESCRIPTION GIVEN AND PATIENTS PACKET MADE INDICATED.
--- NOTE | 2019-05-01 15:12 | NUR ---
PHYSICAL THERAPY DAILY NOTES CO-SIGN All documentation done by the Bilingual Office Assistant for 05/01/19 has been reviewed. I agree with the documentation. Reviewed/Co-Signed by: Jade Curry PT Documentation Done by:CRISTIAN BURRIS PTA
[2019-05-19] MEDS ORDERED: TRAMADOL HCL50 MG PO (09:29)
== END 2019-05-01 15:32 | disposition home or self-care (01) | DRG 720 ==
LOC: ED 21:24 → DU 04-27 00:25
PROVIDERS: Emergency Medicine; Internal Medicine; ADMIT General Practice
DX: A41.9 Sepsis, unspecified organism (principal); K56.600 Partial intestinal obstruction, unspecified as to cause; E11.65 Type 2 diabetes mellitus with hyperglycemia; E66.2 Morbid (severe) obesity with alveolar hypoventilation; Z99.81 Dependence on supplemental oxygen; N39.0 Urinary tract infection, site not specified; F32.9 Major depressive disorder, single episode, unspecified; E78.5 Hyperlipidemia, unspecified; E83.42 Hypomagnesemia; J44.9 Chronic obstructive pulmonary disease, unspecified; Z93.2 Ileostomy status; Z99.3 Dependence on wheelchair; Z79.4 Long term (current) use of insulin; Z68.27 Body mass index [BMI] 27.0-27.9, adult; Z87.891 Personal history of nicotine dependence; Z86.711 Personal history of pulmonary embolism; Z79.01 Long term (current) use of anticoagulants; Z79.84 Long term (current) use of oral hypoglycemic drugs; I69.354 Hemiplegia and hemiparesis following cerebral infarction affecting left non-dominant side; Z68.26 Body mass index [BMI] 26.0-26.9, adult
CPT/HCPCS: 82962; 83880; 94150; 97110-GP; 97112-GP; 97116-GP; 97530-GP; C9113; G0378; J0696; J1200; J2060; J2270; J2405; J2543; J3010; J3475; J3480; J3490; J7030; J7042; J7070; Q0092; Q9967

== ENCOUNTER 2019-05-15 23:30 | Inpatient (IN) | payer MEDICAID ==
[~2019-05-15] VITALS: Ht 160 cm; Wt 71.0 kg
[2019-05-15 23:38] VITALS: Ht 160 cm; Wt 71.0 kg
--- NOTE | 2019-05-15 23:41 | NUR ---
PT BIBA FOR COMPLAINTS OF SOB. PT STATED THAT SHE WAS WATCHING TV WHEN SHE BECAME SHORT OF BREATH. PT HAS BEEN INTUBATED IN THE PAST. HISTORY OF COPD, ABD HERNIA, HTN, AND STROKE. PT HAS WHEEZING TO BILATERAL UPPER AND LOWER LOBES. PT WAS PROVIDED WITH 0.5 ATROVENT, 2.5 ALBUTEROL, AND THEN ANOTHER DOSE OF 2.5 ALBUTEROL. WORKED A LITTLE BIT, BUT STILL NO SUCCESS. PT CONNECTED TO EMERGENCY PLANNER. AND COMPLINING OF PAIN TO HER BACK 05/09. WILL CONTINUE TO MONITOR, AND ATTEMPT IV INSERTION.
[2019-05-16] VITALS (7 sets, daily range): BP systolic 113–146; BP diastolic 37–73
[2019-05-16 00:52] LABS: BASOPHIL % 0.5 % (0-2); PLATELET COUNT 265 x10^3mcL (130-400)
[2019-05-16 00:54] LABS: RED CELL DISTRIBUTION WIDTH 16.4 % (11.5-14.5)
[2019-05-16 01:07] LABS: CALCIUM 7.5 mg/dL (8.5-10.1); CARBON DIOXIDE 27.8 mmol/L (21-32); CHLORIDE SERUM 106 mmol/L (98-107); CREATININE SERUM 0.7 mg/dL (0.6-1.0); GFR1 > 60 mL/min; GLUCOSE SERUM 180 mg/dL (74-106); POTASSIUM SERUM 3.8 mmol/L (3.5-5.1); SODIUM SERUM 140 mmol/L (136-145)
--- NOTE | 2019-05-16 01:08 | NUR ---
PT PROVIDED WITH ATIVAN FOR SEVERE ANXIETY PER EMAR.
[2019-05-16] MEDS ORDERED: LORAZEPAM1 MG PO (01:13)
[2019-05-16 01:14] LABS: T3 TOTAL 1.61 ng/mL
[2019-05-16] MEDS ORDERED: PROAIR HFA8.5 GM (01:16)
[2019-05-16] MEDS ORDERED: PANTOPRAZOLE SO40 M1 PO (01:17)
[2019-05-16] MEDS ORDERED: COUMADIN1 MG PO (01:18)
[2019-05-16 01:20] LABS: CK-MB 3.1 ng/mL (0-3.6)
[2019-05-16] MEDS ORDERED: PULMICORT180 MCG/Ac IH (01:21)
[2019-05-16 01:24] LABS: ALKALINE PHOSPHATASE 98 U/L (46-116); ALT/SGPT 22 U/L (14-59); AST/SGOT 31 U/L (15-37); BILIRUBIN TOTAL 0.3 mg/dL (0.20-1.00); TOTAL PROTEIN, SERUM 6.2 g/dL (6.4-8.2)
[2019-05-16 01:25] LABS: FREE T4 0.88 ng/dL (0.76-1.46); FREE THYROXINE INDEX 2.2 ug/dL (1.4-4.5); T4(THYROXINE) 7.1 ug/dL (4.7-13.3)
[2019-05-16 01:31] LABS: ALBUMIN 2.6 g/dL (3.4-5.0); C REACTIVE PROTEIN < 0.2 mg/dL (<=0.9)
[2019-05-16 01:34] LABS: ERYTHROCYTE SED RATE 43 mm/hr (0-30)
--- NOTE | 2019-05-16 01:46 | NUR ---
REPORT CALLED TO KAILYN ESPANA. ALL QUESTIONS AND CONCERNS ANSWERED.
[2019-05-16 01:49] LABS: CHOLESTEROL/HDL RATIO 1.8
--- NOTE | 2019-05-16 03:20 | NUR ---
REC'D PT FROM ED VIA [facility] ACCOMPANIED BY RN AND EMT. PT TRANSFERRED FROM [facility] TO BED WITH 4 PERSON ASSIST. PT ADM WITH CC OF SOB. PT CURRENTLY C/O SOB. RESPIRATIONS LABORED AND SYMMETRIC. INCREASED WORK OF BREATHING. DRY COUGH. SPO2 96% ON 2L O2 VIA NC. TELE 18, ST. HR 120'S. DENIES CP, DIZZINESS, OR PALPITATIONS. HX STROKE WITH RESIDUAL L SIDED WEAKNESS. LUE AND LLE STIFFENED. USES WC TO AMBULATE. BEDBOUND. ABD SOFT AND SLIGHTLY DISTENDED. COLOSTOMY TO RLQ. STOMA BEEFY RED DRAINING LIGHT BROWN LOOSE, SEEDY STOOL. HERNIA NOTED TO EPIGASTRIC REGION, NONREDUCABLE. PT STATES PAIN TO HERNIA EXACERBATED BY COUGHS. C/O UPPER BACK PAIN 10/10. WILL MEDICATE APPROPRIATELY. IV TO RFA FLUSHED AND PATENT, SITE WNL. ORIENTED TO DEVICES AND SURROUNDINGS. CALL LIGHT WITHIN REACH, BED AT LOWEST POSITION. WILL CONTINUE TO MONITOR.
--- NOTE | 2019-05-16 03:33 | NUR ---
PT GIVEN NORCO FOR PAIN PER EMAR.
--- NOTE | 2019-05-16 03:33 | NUR ---
PT TRANSFERRED UPSTAIRS TO TELE. PT VERBALIZED UNDERSTANDING. KAILYN ESPANA AT BEDSIDE TO ASSIST. PACKET GIVEN TO TOY ASSEMBLY SUPERVISOR.
--- NOTE | 2019-05-16 03:41 | NUR ---
PT VERY ANXIOUS AND C/O BACK PAIN 05/09. LABORED BREATHING AND TACHYPNEIC, RR 24. DR. ALVA MADE AWARE. STATED WILL ORDER ATIVAN FIRST AND SEE IF PT WILL STILL REQUIRE PAIN MEDS.
--- NOTE | 2019-05-16 04:30 | NUR ---
PT STILL C/O 05/09 PAIN MEDEIROS AND UPPER BACK. UPON ASSESS THE PT, WHEN ASKED IF SHE HAS HAD ANY HISTORY OF SI, PT STATED IN EQUATORIAL GUINEAN SHE "WANTS TO SLEEP AND NEVER WAKE UP." DENIED ANY PAST SUICIDAL ATTEMPTS. TRANSLATION PROVIDED BY FISH WORM GROWER, CELIA. DR. ALVA MADE AWARE OF COMPLAINTS OF PAIN AND SI. STATED WILL ORDER MORPHINE AND MADE DAY TEAM AWARE FOR POSSIBLE PSYCH CONSULT.
--- NOTE | 2019-05-16 04:43 | NUR ---
ROBITUSSIN WITH CODEINE GIVEN FOR DRY COUGH. WILL MONITOR FOR RELIEF.
--- NOTE | 2019-05-16 06:22 | NUR ---
MORPHINE GIVEN FOR SEVERE BACK PAIN. PT DENIES SOB AT THIS TIME. RR 20. WILL MONITOR FOR RELIEF.
[2019-05-16 06:31] LABS: PLATELET COUNT 237 x10^3mcL (130-400)
[2019-05-16 06:35] LABS: CALCIUM 7.6 mg/dL (8.5-10.1); CARBON DIOXIDE 22.4 mmol/L (21-32); MAGNESIUM 1.1 mg/dL (1.8-2.4); PHOSPHOROUS 2.9 mg/dL (2.5-4.9); POTASSIUM SERUM 4.2 mmol/L (3.5-5.1)
[2019-05-16 06:38] LABS: BASOPHIL % 0 % (0-2); RED CELL DISTRIBUTION WIDTH 16.3 % (11.5-14.5)
--- NOTE | 2019-05-16 06:59 | NUR ---
PT RESTING IN BED WITH EYES CLOSED. NO SIGNS OF DISTRESS OR PAIN NOTED. BREATHING EVEN/UNLABORED ON 2L NC.
--- NOTE | 2019-05-16 07:45 | NUR ---
PATIENT A/OX4, ABLE TO MAKE NEEDS KNOWN FOLLOWS COMMANDS. DENIES HEADACHE. TELE IN PLACE READING SR, DENIES CP. LUNGS W/ EXP WHEEZING BILAT, 2L NC IN PLACE O2 SAT 96%, BREATHING SYMMETRICAL CHEST EXPANSION. ABD DISTENDED/SOFT, COLOSTOMY BAG TO RLQ BROWN STOOL AND GAS. DENIES N/V. VOIDS FREELY TO BEDPAN. REPORTS PAIN TO BACK REQUESTING FOR PAIN MED, WILL ADMINISTER PER EMAR. PERIPHERAL PULSES PALPABLE. WOUND TO RT BUTTOCK W/ OPTIFOAM IN PLACE DRY INTACT. IV SITE WNL. CALL LIGHT WITHIN REACH. SAFETY PREC REINFROCED.
--- NOTE | 2019-05-16 12:50 | NUR ---
Discount pharmacy card and list to low cost medical clinics given to patient by Sushil Moreno.
--- NOTE | 2019-05-16 15:15 | NUR ---
PATIENT C/O PERSISTENT SEVERE PAIN TO BACK AFTER NORCO. DR DUVAL MADE AWARE. MORPHINE ORDERED AND ADMINISTERED. COLOSTOMY BAG EMPTIED, GAS AND BROWN STOOL. CALL LIGHT WTHIN REACH.
--- NOTE | 2019-05-16 19:48 | NUR ---
RECEIVED AWAKE IN BED, ALERTT AND VERBALLY RESPONSIVE , ENGLISH SPEAKING ONLY. APPARENTLY VERY ANXIOUS AT THIS TIME, CLAIMED SPEAKS ENGLISH ONLY, EXPLAINED TO PATIENT VULCANIZING MACHINE OPERATOR AVAILABLE AT [employer]. SKIN WARM AND DRY TO TOUCH WITH OPTIFOAM DRESSING TO LEFT BUTTOCK HEEALING ULCER. RLQ COLOSTOMY WITH BROWNISH STOOL WITH GAS, PT ENEIS ANY NAUSEA/ABDOMINAL DISCOMFORT. WILL CONTINUE TO MONITOR,
--- NOTE | 2019-05-16 21:37 | NUR ---
C/O SEVERE BACK ACH6 ON SCALE 8/10, MORPHINE 2MG IVP PRN MEDIACTION. TOTAL ASSIST IN REPOSITIONING FOR COMFORT. COLOSTY RENDERED. INSTRUCTED TO CALL FOR ANY ASSISTANCE NEEDED AND VERBALIZED UNDERSTANDING/
--- NOTE | 2019-05-17 00:45 | NUR ---
EYES CLOSED, RESPIRATION EVEN AND UNLABORED. NO FACIAL GRIAMCING NOTED. INCONTINENT OF URINE. KEPT CLEAN AND DRY.
[2019-05-17 04:44] VITALS: BP 120/44
--- NOTE | 2019-05-17 06:00 | NUR ---
DUE MEDICATIOMS GIVEN ORDERED. TOLERTINGG WELL. TURNED AND REPOSITIONED FOR COMFORT. ALL NEEDS ATTENDED.
[2019-05-17 06:40] LABS: BASOPHIL % 0.1 % (0-2); PLATELET COUNT 232 x10^3mcL (130-400)
[2019-05-17 06:46] LABS: CALCIUM 8.1 mg/dL (8.5-10.1); CARBON DIOXIDE 30.3 mmol/L (21-32); CHLORIDE SERUM 109 mmol/L (98-107); CREATININE SERUM 0.8 mg/dL (0.6-1.0); GFR1 > 60 mL/min; GLUCOSE SERUM 207 mg/dL (74-106); MAGNESIUM 2.2 mg/dL (1.8-2.4); PHOSPHOROUS 2.8 mg/dL (2.5-4.9); POTASSIUM SERUM 4.5 mmol/L (3.5-5.1); SODIUM SERUM 144 mmol/L (136-145)
[2019-05-17 06:48] LABS: RED CELL DISTRIBUTION WIDTH 17.1 % (11.5-14.5)
--- NOTE | 2019-05-17 07:05 | NUR ---
RECIEVED PT FROM NIGHT NURSE. PT IS LAYING DOWN IN BED WITH HOB UP RESTING. PT LOOKS TO BE IN NO ACUTE DISTRESS AT THIS TIME AND DENIES ANY PAIN. RESPIRATIONS EVEN AND UNLABORED ON 2L NC. TELE MONITOR PRESENT. IV SITE PATENT WITH NO SIGNS OF ERYTHEMA OR SWELLING WITH IV FLUIDS INFUSING. CALL LIGHT WITHIN REACH. WILL CONTINUE TO MONITOR.
[2019-05-17 07:57] VITALS: BP 136/55
[2019-05-17 12:23] VITALS: BP 126/40
--- NOTE | 2019-05-17 13:30 | NUR ---
PT STATES THAT SHE IS FEELING ANXIOUS AND IS HAVING PAIN TO HER BACK AND IS REQUESTING MEDICATION . WILL MEDICATE ACCORDING TO EA
--- NOTE | 2019-05-17 15:48 | NUR ---
PROVIDED PT WITH ABD BINDER TO UPPER ABDOMINAL AREA. PT VERBALIZED UNDERSTANDING OF RECOMMENDATION OF ABD BINDER. PT IS LAYING DOWN IN BED WITH HOB UP RESTING. WILL CONTINUE TO MONITOR.
[2019-05-17 17:06] VITALS: BP 102/40
--- NOTE | 2019-05-17 17:15 | NUR ---
PT IS LAYING DOWN IN BED WITH HOB UP. PT LOOKS TO BE IN NO ACUTE DISTRESS AT THIS TIME AND STATES THAT SHE, "FEELS PERFECT." RESPIRATIONS EVEN AND UNLABORED ON 2L NC. IV SITE PATENT WITH NO SIGNS OF ERYTHEMA OR SWELLING. FAMILY MEMBER AT BEDSIDE. WILL CONTINUE TO MONITOR.
[2019-05-17 17:22] VITALS: BP 135/54
--- NOTE | 2019-05-17 18:58 | NUR ---
PT IS LAYING DOWN IN BED RESTING WITH HOB UP. PT LOOKS TO BE IN NO ACUTE DISTRESS AT THIS TIME. IV SITE PATENT WITH NO SIGNS OF ERYTHEMA OR SWELLING WITH IV FLUIDS INFUSING. COLOSTOMY TO LLQ. ABD BINDER TO UPPER ABD. RESPIRATIONS EVEN AND UNLABORED ON 2L NC. CALL LIGHT WITHIN REACH. WILL ENDORSE TO ONCOMING SHIFT.
--- NOTE | 2019-05-17 19:25 | NUR ---
CARE ASSUMED FROM OUTGOING RN. PT RESTING COMFORTABLY IN BED. FAMILY AT BEDSIDE. C/O 10/10 BACK PAIN, WILL MEDICATE PER EMAR. EVEN AND UNLABORED RESPIRATIONS ON 2LNC. ON TELE# [address] 101. IV PATENT AND INTACT RUNNING FLUIDS PER EMAR. COLOSTOMY NOTED, PATENT AND INTACT. ABD BINDER IN PLACE. BED IN LOWEST POSITION. SIDE RAILS UPX2. CALL LIGHT WITHIN REACH. WILL CONTINUE TO MONITOR.
--- NOTE | 2019-05-17 23:41 | NUR ---
PT RESTING COMFORTABLY IN BED. NO ACUTE DISTRESS NOTED. EVEN AND UNLABORED RESPIRATIONS ON 2LNC. ON TELE# [address] 65[address] IV PATENT AND INTACT RUNNING FLUIDS PER EMAR, IVP MEDICATION GIVEN PER EMAR. BED IN LOWEST POSITION. SIDE RAILS UPX2. CALL LIGHT WITHIN REACH. WILL CONTINUE TO MONITOR.
[2019-05-18 04:09] VITALS: BP 131/51
--- NOTE | 2019-05-18 06:36 | NUR ---
PT SLEPT COMFORTABLY IN INTERVALS THROUGHOUT THE SHIFT. ALL NEEDS TENDED TO AND MET. ALL SCHEDULED MEDICATIONS GIVEN. C/O BACK PAIN AND ITCHINESS MEDICATED PER EMAR. ON TELE#[address] EVEN AND UNLABORED RESPIRATIONS ON 2LNC. IV PATENT AND INTACT RUNNING FLUIDS PER EMAR. COLOSTOMY INTACT AND PATENT. ABD BINDER APPLIED. BLOOD SUGARS COVERED PER SLIDING SCALE. BED IN LOWEST POSITION. SIDE RAILS UPX2. CALL LIGHT WITHIN REACH. WILL ENDORSE TO ONCOMING SHIFT.
[2019-05-18 06:38] LABS: PLATELET COUNT 216 x10^3mcL (130-400)
--- NOTE | 2019-05-18 07:05 | NUR ---
RECEIVED PT FROM NIGHT NURSE. PT IS LAYING DOWN IN BED WITH HOB UP RESTING WITH EYES CLOSED. PT LOOKS TO BE IN NO ACUTE DISTRESS AT THIS TIME. RESPIRATIONS EVEN AND UNLABORED ON 2L NC. IV SITE PATENT WITH NO SIGNS OF ERYTHEMA OR SWELLING WITH IV FLUIDS INFUSING. COLOSTOMY BAG PRESENT TO LLQ, ABD BINDER TO EPIGASTRIC AREA ORDERED. BED IN LOWEST POSITION, CALL LIGHT WITHIN REACH. WILL CONTINUE TO MONITOR.
[2019-05-18 07:09] LABS: BASOPHIL % 0 % (0-2); RED CELL DISTRIBUTION WIDTH 17.4 % (11.5-14.5)
[2019-05-18 07:21] LABS: CALCIUM 7.5 mg/dL (8.5-10.1); CARBON DIOXIDE 32.3 mmol/L (21-32); CHLORIDE SERUM 107 mmol/L (98-107); CREATININE SERUM 0.8 mg/dL (0.6-1.0); GFR1 > 60 mL/min; GLUCOSE SERUM 218 mg/dL (74-106); MAGNESIUM 1.7 mg/dL (1.8-2.4); PHOSPHOROUS 2.8 mg/dL (2.5-4.9); POTASSIUM SERUM 3.9 mmol/L (3.5-5.1); SODIUM SERUM 144 mmol/L (136-145)
[2019-05-18 08:02] VITALS: BP 119/50
--- NOTE | 2019-05-18 08:40 | NUR ---
PT COMPLAINING OF PAIN 7/10 TO THE BACK. ABD BINDER TO EPIGASTRIC AREA. WILL MEDICATE ACCORDING TO EMAR.
--- NOTE | 2019-05-18 10:00 | NUR ---
PT COMPLAINING OF PAIN TO THE BACK 02/06. PT ABLE TO TURN AND REPOSITION SELF. ABD BINDER TO EPIGASTRIC AREA. WILL MEDICATE ACCORDING TO EMAR.
[2019-05-18 11:59] VITALS: BP 130/55
--- NOTE | 2019-05-18 13:50 | NUR ---
EMPTIED OUT APPROXIMATELY 400ML OF SEMI LIQUID, SEMI SOLID DARK GREEN STOOL FROM COLOSTOMY. GAS PRODUCTION IN COLOSTOMY EMPITED. WILL CONTINUE TO MONITOR.
[2019-05-18 16:51] VITALS: BP 117/52
[2019-05-18 17:20] VITALS: BP 109/46
--- NOTE | 2019-05-18 17:30 | NUR ---
PT COMPLAINING OF FEELING ITCHINESS TO BUE. PT STATES THIS COMMONLY HAPPENS IN THE EVENING AND IS UNSURE OF WHAT CAUSES IT. PT STATES THAT SHE TAKEN BENADRYL AT HOME WHICH HELPS AND IS REQUESTING MEDICATION TO ASSIST WITH THE ITCHINESS. PROVIDED PT WITH LOTION FOR THE SKIN TO ASSIST WITH THE ITCHING AT THIS TIME. WILL NOTIFY
--- NOTE | 2019-05-18 18:46 | NUR ---
PT IS LAYING DOWN IN BED WITH HOB UP RESTING.PT LOOKS TO BE IN NO ACUTE DISTRESS AT THIS TIME AND DENIES ANY PAIN. RESPIRATIONS EVEN AND UNLABORED ON 2L NC. COLOSTOMY BAG TO LLQ DRAINING DARK GREEN SEMI FORMED STOOL. PT STATES ITCHINESS TO BUE HAS IMPROVED AT THIS TIME. ABD BINDER TO EPIGASTRIC AREA OF ABD. CALL LIGHT WITHIN REACH. WILL ENDORSE TO ONCOMING SHIFT.
--- NOTE | 2019-05-18 19:15 | NUR ---
CARE ASSUMED FROM OUTGOING RN. PT RESTING COMFORTABLY IN BED. NO ACUTE DISTRESS NOTED. EVEN AND UNLABORED RESPIRATIONS ON 2LNC. ON TELE# [address] 67[address] IV PATENT AND INTACT RUNNING FLUIDS PER EMAR. NO C/O OF PAIN AT THIS TIME. ITCHINESS HAS GONE AWAY AFTER MEDICATION GIVEN. COLOSTOMY BAG PATENT AND INTACT. BED IN LOWEST POSITION. SIDE RAILS UPX2. CALL LIGHT WITHIN REACH. WILL CONTINUE TO MONITOR.
--- NOTE | 2019-05-19 00:25 | NUR ---
PT RESTING COMFORTABLY IN BED. C/O ANXIETY MEDICATED PER EMAR, PT CALM AT THIS TIME. C/O ABD PAIN DUE TO ABD BINDER, REMOVED ABD BINDER PER PT REQUEST, STATES MUCH BETTER. COLOSTOMY BAG EMPTIED, 200ML BROWNISH SEMILIQUID OUTPUT WITH GAS EMPTIED. PT TOLERATED WELL. BED IN LOWEST POSITION. SIDE RAILS UPX2. CALL LIGHT WITHIN REACH. WILL CONTINUE TO MONITOR.
[2019-05-19 05:10] VITALS: BP 143/62
[2019-05-19 06:29] LABS: BASOPHIL % 0.2 % (0-2); PLATELET COUNT 232 x10^3mcL (130-400)
[2019-05-19 06:35] LABS: CALCIUM 7.6 mg/dL (8.5-10.1); CARBON DIOXIDE 35.1 mmol/L (21-32); CHLORIDE SERUM 110 mmol/L (98-107); CREATININE SERUM 0.8 mg/dL (0.6-1.0); GFR1 > 60 mL/min; GLUCOSE SERUM 125 mg/dL (74-106); POTASSIUM SERUM 4.1 mmol/L (3.5-5.1); SODIUM SERUM 149 mmol/L (136-145)
--- NOTE | 2019-05-19 06:38 | NUR ---
PT SLEPT COMFORTABLY IN INTERVALS THROUGHOUT THE SHIFT. ALL NEEDS TENDED TO AND MET. ALL SCHEDULED MEDICATIONS GIVEN. C/O BACK PAIN AND ANXIETY MEDICATED PER EMAR. EVEN AND UNLABORED RESPIRATIONS ON 2LNC. ON TELE# [address] 58[address] OPTIFOAM PLACED TO SACRAL/BUTTOCK AREA, CDI. BLOOD SUGARS COVERED PER SLIDING SCALE. COLOSTOMY BAG PATENT AND INTACT. BED IN LOWEST POSITION. SIDE RAILS UPX2. CALL LIGHT WITHIN REACH. WILL ENDORSE TO ONCOMING SHIFT.
--- NOTE | 2019-05-19 07:10 | NUR ---
RECVEIVED PT FROM NIGHT NURSE. PT IS LAYING DOWN IN BED WITH HOVB UP RESTING WITH EYES CLOSED. PT LOOKS TO BE IN NO ACUTE DISTRESS AT THIS TIME. RESPIRATIONS EVEN AND UNLABORED ON 2L NC. IV SITE PATENT WITH NO SIGNS OF ERYTHEMA OR SWELLING WITH IV FLUIDS INFUSING. COLOSTOMY BAG PRESENT, ABD BINDER PRESENT, TELE MONITOR PRESENT. CALL LIGHT WITHIN REACH. WILL CONTINUE TO MONITOR.
[2019-05-19 07:52] VITALS: BP 122/59
[2019-05-19 07:56] LABS: RED CELL DISTRIBUTION WIDTH 17.6 % (11.5-14.5)
[2019-05-19] MEDS ORDERED: LANTUS SOLOS100 U/M1 SQ (09:23)
[2019-05-19] MEDS ORDERED: ULTRAM50 MG PO (09:26)
[2019-05-19] MEDS ORDERED: TRAMADOL HCL50 MG PO (09:29)
--- NOTE | 2019-05-19 10:30 | NUR ---
PT COMPLAINING OF PAIN 10/10 TO ABD AND BACK AND IS REQUESTING PAIN MEDICATION. WILL MEDICATE ACCORDING TO EMAR.
[2019-05-19 11:50] VITALS: BP 137/56
--- NOTE | 2019-05-19 14:45 | NUR ---
PT COLOSTOMY BAG IS LEAKING AROUND PERIMITER OF ADHESIVE. CHANGED COLOSTOLY BAG AND CLEANED AREA AROUND STOMA, STOMA IS RED AND MOIST, SKIN INTACT. NEW COLOSTOMY BAG IS PATENT AND INTACT. WILL CONITNUE TO MONITOR.
--- NOTE | 2019-05-19 15:20 | NUR ---
PT COMPLAINING OF FEELING ANXIOUS AND IS REQUESTING MEDICATION FOR ANXIETY. WILL MEDICATE ACCORDING TO EMAR
[2019-05-19 16:10] VITALS: BP 109/55
--- NOTE | 2019-05-19 18:10 | NUR ---
PT IS LAYING DOWN IN BED WITH HOB UP RESTING. PT LOOKS TO BE IN NO ACUTE DISTRESS AT THIS TIME. RESPIRATIONS EVEN AND UNLABORED ON 2L NC. IV SITE PATENT WITH NO SIGNS OF ERYTHEMA OR SWELLING WITH IV FLUIDS INFUSING. COLOSTOMY INTACT TO LLQ. FAMILY MEMBER AT BEDSIDE. CALL LIGHT WITHIN REACH. WILL ENDORSE TO ONCOMING SHIFT.
--- NOTE | 2019-05-19 19:10 | NUR ---
CARE ASSUMED FROM OUTGOING RN. PT RESTING COMFORTABLY IN BED. DAUGHTER AT BEDSIDE. NO ACUTE DISTRESS NOTED. EVEN AND UNLABORED RESPIRATIONS ON 2LNC. ON TELE# [address] 68[address] IV PATENT AND INTACT RUNNING FLUIDS PER EMAR. COLOSTOMY BAG PATENT AND INTACT. HERNIA TO EPIGASTRIC AREA, ABD BINDER IN PLACE. BED IN LOWEST POSITION. SIDE RAILS UPX2. CALL LIGHT WITHIN REACH. WILL CONTINUE TO MONITOR.
[2019-05-19 19:26] VITALS: BP 135/54
[2019-05-20] VITALS (7 sets, daily range): BP systolic 112–145; BP diastolic 43–60
--- NOTE | 2019-05-20 01:09 | NUR ---
PT ASLEEP COMFORTABLY IN BED. NO ACUTE DISTRESS NOTED. EVEN AND UNLABORED RESPIRATIONS ON 2LNC. ON TELE# [address] 61[address] IV PATENT AND INTACT RUNNING FLUIDS PER EMAR. BED IN LOWEST POSITION. SIDE RAILS UPX2. CALL LIGHT WITHIN REACH. WILL CONTINUE TO MONITOR.
[2019-05-20 06:32] LABS: CALCIUM 7.4 mg/dL (8.5-10.1); CARBON DIOXIDE 31.8 mmol/L (21-32); CHLORIDE SERUM 108 mmol/L (98-107); CREATININE SERUM 0.8 mg/dL (0.6-1.0); GFR1 > 60 mL/min; GLUCOSE SERUM 116 mg/dL (74-106); MAGNESIUM 1.6 mg/dL (1.8-2.4); PHOSPHOROUS 3.2 mg/dL (2.5-4.9); POTASSIUM SERUM 3.7 mmol/L (3.5-5.1); SODIUM SERUM 144 mmol/L (136-145)
[2019-05-20 06:42] LABS: PLATELET COUNT 233 x10^3mcL (130-400)
--- NOTE | 2019-05-20 06:52 | NUR ---
PT SLEPT COMFORTABLY IN INTERVALS THROUGHOUT THE SHIFT. ALL NEEDS TENDED TO AND MET. ALL SCHEDULED MEDICATIONS GIVEN. C/O BACK PAIN MEDICATED PER EMAR. COLOSTOMY BAG PATENT. HERNIA NOTED TO EPIGASTRIC REGION, ABD BINDER AT BEDSIDE, PT REQUEST FOR IT TO BE OFF AT THIS TIME. BED IN LOWEST POSITION. SIDE RAILS UPX2. CALL LIGHT WITHIN REACH. WILL ENDORSE TO ONCOMING SHIFT.
[2019-05-20 06:58] LABS: BASOPHIL % 0 % (0-2); RED CELL DISTRIBUTION WIDTH 17.4 % (11.5-14.5)
--- NOTE | 2019-05-20 08:30 | NUR ---
PERFORMED MORNING ASSESSMENT. PATIENT ALERT AND ORIENTED. PATIENT APPEARS COMFORTABLE. WHEEZING PRESENT UPON AUSCULTATION OF BILATERAL LUNG SLAUGHTER. PATIENT IS CURRENTLY ON 2 L NC. NO CURRENT REPORTS OF CHEST PAIN. APPEARS CALM.
--- NOTE | 2019-05-20 10:15 | NUR ---
PATIENT REQUESTING TO EMPTY COLOSTOMY BAG, BROWN SOFT MODERATE AMOUNT W/ GAS. NO COMPLAINTS OF PAIN AT THIS TIME. CALL LIGHT WITHIN REACH.
--- NOTE | 2019-05-20 19:39 | NUR ---
Endorsed Care to night nurse. Colostomy emptied with dark green and brown soft liquid output-moderate amount. Colostomy bag replaced with new bag. Ostomy site beefy red. Patient tolerated fairly. Safety precautions reinforced.
--- NOTE | 2019-05-20 20:07 | NUR ---
SHIFT REASSESSMENT DONE.PATIENT ALERT AND OREINTED.AT CHANGED OF SHIFT,COLOSTOMY BAG FULL/LIQUID BROWN STOOL,EMTIED/CHANGED BY DAY SHIFT BEFORE TAKING OFF.NEW BAG.TELE [address]GEN WEAKNESS.O2 AT 2 LITERSABD HERNIA,ABD BINDER.VOIDING/URGENCY REPORT.ATB SCHEDULE.COUMADIN ON HOLDPT AND INR ELEVATED.WILL BE DC IN AM?CALL LIGHT IN REACH.
--- NOTE | 2019-05-20 20:53 | NUR ---
WILL CHECK PATIENT,WILL GIVE MSO4 IF SEVERE PAIN.
--- NOTE | 2019-05-20 20:53 | NUR ---
WAS JUST GIVEN NORCO,JOVITARE NURSE SAYS SHE IS CRYING,PAIN.
--- NOTE | 2019-05-21 01:15 | NUR ---
PATIENT CHECKED AT INTERVALS,FOR NEEDS AND SAFETY.
--- NOTE | 2019-05-21 04:45 | NUR ---
PATIENT COLOSTOMY EMPTIED LIQUID STOOLS,GREENTO BROWN LIQUID.
[2019-05-21 04:58] VITALS: BP 129/55
--- NOTE | 2019-05-21 06:17 | NUR ---
NEW SET OF COLOSTOMY BAG,FRESHEN UP,GOOD CHUNK OF FOOF NOTED IN COLOSTOMY BAG,NOT BEING DIGESTED?GOOD SKIN CARE PROVIDED.
[2019-05-21 06:46] LABS: PLATELET COUNT 258 x10^3mcL (130-400)
[2019-05-21 06:47] LABS: CALCIUM 7.6 mg/dL (8.5-10.1); CARBON DIOXIDE 30.1 mmol/L (21-32); CHLORIDE SERUM 106 mmol/L (98-107); CREATININE SERUM 0.8 mg/dL (0.6-1.0); GFR1 > 60 mL/min; GLUCOSE SERUM 134 mg/dL (74-106); MAGNESIUM 1.7 mg/dL (1.8-2.4); POTASSIUM SERUM 3.6 mmol/L (3.5-5.1); SODIUM SERUM 144 mmol/L (136-145)
[2019-05-21 06:52] LABS: BASOPHIL % 0 % (0-2); RED CELL DISTRIBUTION WIDTH 17.1 % (11.5-14.5)
--- NOTE | 2019-05-21 07:30 | NUR ---
A&OX4, FOLLOWS COMMANDS, COOPERATES WELL. PATIENT IS ON TELE #18, NSR, PERIPHERAL PULSES PALPABLE, W/ NO SIGNS OF EDEMA. CURRENTLY ON NC 2L, LUNG SOUNDS CTA BILATERALLY, NORMOACTIVE BOWEL SOUNDS X4, VOIDS WELL, ANDCURRENTLY ON LASIX. PATIENT HAS GENERALIZED WEAKNESS AND FREQUENTLY REPOSITIONS SELF D/T REDNESS SACRAL LEFT BUTT HEALING ULCER. SITE IS CDI. PATIENT DOES NOT COMPLAIN OF SOB, OR ANY DISCOMFORT OR PAIN. WILL CONTINUE TO MONITOR NEEDED.
[2019-05-21 08:35] VITALS: BP 155/56
[2019-05-21 12:00] VITALS: BP 145/60
--- NOTE | 2019-05-21 13:23 | NUR ---
Initial Nutrition Assessment: 237T/B NATASHA MENDOZA MR Dx: COPD exacerbation PMHx: DM, Stroke, COPD, HTN, Hypercholesterolemia PSHx: 7 surgeries in [place] due to dysfunctional intestine with colostomy per patient Labs: BG 134H, BUN 19H, ALB 2.6L, MG 1.7L, A1C 8.2H, WBC 4.2L Meds: Ativan, Benadryl, Glucophage, Humulin, lantus, Lasix, Levaquin, NS Diet: CCHO PO intake since admission: (05/20) lunch 90%, breakfast 95%, (05/19) 100% all meals Ht: 160.02 cm (63") Wt: 71 kg (156#) BMI: 27.7 kg/m2 Bed scale: 71 kg IBW: 115# (52 kg) %IBW: 135 UBW: 156-157# Age: 63/F Food Allergies: NKFA Skin: sacral redness, L butt ulcer Brandan: 16 Edema: none GI: colostomy bag Last BM: 05/20 Per H&P, Pt is a 63 years old female with PMH of DM, Stroke, COPD, HTN, Hypercholesterolemia who brought to ED due to gradual onset, constant, worsening shortness of breath RD Note (05/21): Patient was alert and oriented and said that she has fair to good appetite. Patient said that she ate most of her breakfast this morning and does not have any N/V/D/C at this time. Problem with: N/V/D/C: none at this time Problems with: Chewing: Swallowing: none Current appetite: fair Recent wt change: none %wt change: n/a Vitamin/Supplement use: iron Special diet at home: Diabetic Physical activity: non- ambulatory using wheelchair Nutrition education given: Diabetic diet education was provided. Portion control and fiber intake were emphasized. Food-drug interactions: Lasix- increased excretion of K, Mg Education given: no Estimated Nutritional Needs Based on current body weight (71 kg) Energy:9403-9074 kcal/day (25-30 kcal/kg for maintenance) Protein: 71-85 g/day (1.0-1.2 g/kg for maintenance) Fluid: 9716-1577 mL/day (1 mL/kcal) Nutrition Diagnosis: 1. Food and nutrition related knowledge deficit related to patient not following diet recommendations as evidenced by A1C 8.2. Intervention 1. Recommend continuing CCHO diet. 2. DM diet education provided. Monitor/Evaluate Goal: PO intake at least 75% of estimated needs Monitor: PO intake, Labs, GI function F/U in 7 days as low risk 05/28
--- NOTE | 2019-05-21 13:24 | NUR ---
1. [facility]. 2. DM diet education provided.
--- NOTE | 2019-05-21 16:30 | NUR ---
PATIENT HAS RECEIVED DISCHARGED INSTRUCTIONS TO BE SENT HOME. PATIENT, DAUGHTER AND SON WERE BOTH PRESENT UPON READING THE DISCHARGE PACKET WHICH INCLUDES PATIENT INSTRUCTIONS, EDUCATIONAL HANDOUTS, AND FOLLOW-UP APPOINTMENTS. PATIENT SHOWS NO SIGNS OF DISTRESS OR DISCOMFORT. THE PATIENT AND FAMILY HAS ALL QUESTIONS AND CONCERNS ANSWERED. IV CATHETER HAS BEEN DC AND IS INTACT. TELE LEADS HAVE BEEN REMOVED EARLIER IN THE DAY D/T TRANSFER FROM TELE TO MED-SURG PATIENT. PATIENT HAS ALL BELONGINGS W/ DAUGHTER AND SON. PATIENT HAS BEEN TRANSFERED VIA THEIR OWN WHEELCHAIR, W/ [employer] AND FAMILY. ALL QUESTIONS AND CONCERNS HAVE BEEN ADDRESSED PRIOR TO DISCHARGE
== END 2019-05-21 16:26 | disposition home or self-care (01) | DRG 140 ==
LOC: ED 23:30 → DU 05-16 00:43
PROVIDERS: Specialist; ADMIT Internal Medicine
DX: J44.1 Chronic obstructive pulmonary disease with (acute) exacerbation (principal); J96.01 Acute respiratory failure with hypoxia; E43 Unspecified severe protein-calorie malnutrition; E11.65 Type 2 diabetes mellitus with hyperglycemia; D53.9 Nutritional anemia, unspecified; I10 Essential (primary) hypertension; Z93.3 Colostomy status; Z79.4 Long term (current) use of insulin; Z68.29 Body mass index [BMI] 29.0-29.9, adult; Z87.891 Personal history of nicotine dependence; Z86.711 Personal history of pulmonary embolism; Z79.01 Long term (current) use of anticoagulants; Z86.73 Personal history of transient ischemic attack (TIA), and cerebral infarction without residual deficits
CPT/HCPCS: 36600; 82962; 83880; 84439; 87804; A4371; G0378; J1650; J1815; J1940; J1956; J2060; J2270; J2930; J3475; J7030; J7613; J7626; J7644; Q0092; Q0163

== ENCOUNTER 2019-12-20 17:05 | Emergency (ER) | payer MEDICAID ==
[~2019-12-20] VITALS: Ht 160 cm; Wt 86.2 kg
[~2019-12-20 17:05] MED LIST changes: +LORAZEPAM1 MG PO; +PROAIR HFA8.5 GM; +PULMICORT180 MCG/Ac IH
[2019-12-20 17:10] VITALS: Ht 160 cm; Wt 86.2 kg
[2019-12-20 17:27] LABS: BASOPHIL % 0.4 % (0-2); PLATELET COUNT 332 x10^3mcL (130-400)
[2019-12-20 17:28] LABS: RED CELL DISTRIBUTION WIDTH 17.9 % (11.5-14.5)
[2019-12-20 17:48] LABS: CALCIUM 9.4 mg/dL (8.5-10.1); CARBON DIOXIDE 20.5 mmol/L (21-32); CHLORIDE SERUM 103 mmol/L (98-107); CREATININE SERUM 1.1 mg/dL (0.6-1.0); GFR1 53 mL/min; GLUCOSE SERUM 144 mg/dL (74-106); POTASSIUM SERUM 4.5 mmol/L (3.5-5.1); SODIUM SERUM 138 mmol/L (136-145)
[2019-12-20 17:54] LABS: ALBUMIN 3.6 g/dL (3.4-5.0); ALKALINE PHOSPHATASE 128 U/L (46-116); ALT/SGPT 30 U/L (14-59); AST/SGOT 37 U/L (15-37); CHOLESTEROL 193 mg/dL (<200); CHOLESTEROL/HDL RATIO 4.2; HDL CHOLESTEROL 46 mg/dL (40-60); TOTAL PROTEIN, SERUM 7.3 g/dL (6.4-8.2); TRIGLYCERIDES 461 mg/dL (<150)
[2019-12-20 18:12] LABS: T3 TOTAL 1.17 ng/mL
[2019-12-20 18:50] LABS: FREE T4 1.13 ng/dL (0.76-1.46); FREE THYROXINE INDEX 2.7 ug/dL (1.4-4.5); T4(THYROXINE) 8.5 ug/dL (4.7-13.3)
[2019-12-20 20:07] VITALS: BP 98/59
== END 2019-12-20 20:07 | disposition home or self-care (01) ==
LOC: ED 17:05
PROVIDERS: Specialist
DX: F41.9 Anxiety disorder, unspecified (principal); J44.9 Chronic obstructive pulmonary disease, unspecified; I10 Essential (primary) hypertension; E11.9 Type 2 diabetes mellitus without complications; Z88.6 Allergy status to analgesic agent; Z98.890 Other specified postprocedural states
CPT/HCPCS: 84439; J2060; Q0092

== ENCOUNTER 2020-07-14 09:55 | Emergency (ER) | payer MEDICAID, SELFPAY ==
[~2020-07-14] VITALS: Ht 154.9 cm; Wt 68.0 kg
[2020-07-14 10:04] VITALS: Ht 154.9 cm; Wt 68.0 kg
[2020-07-14 11:39] LABS: BASOPHIL % 0.9 % (0.2-1.3); PLATELET COUNT 255 x10^3mcL (179-408)
[2020-07-14 12:11] LABS: RED CELL DISTRIBUTION WIDTH 14.7 % (12.3-17.7)
[2020-07-14 12:22] LABS: ALKALINE PHOSPHATASE 102 U/L (46-116); ALT/SGPT 28 U/L (14-59); AST/SGOT 22 U/L (15-37); C REACTIVE PROTEIN 5.9 mg/dL (<=0.9); CALCIUM 9.1 mg/dL (8.5-10.1); CARBON DIOXIDE 28.5 mmol/L (21-32); CHOLESTEROL 166 mg/dL (<200); CREATININE SERUM 0.9 mg/dL (0.6-1.0); GFR1 > 60 mL/min; GLUCOSE SERUM 203 mg/dL (74-106); LACTIC DEHYDROGENASE (LDH) 245 U/L (100-190); LIPASE 88 IU/L (73-393)
[2020-07-14 12:27] LABS: HDL CHOLESTEROL 61 mg/dL (40-60)
[2020-07-14 12:34] LABS: CHLORIDE SERUM 100 mmol/L (98-107); POTASSIUM SERUM 4.1 mmol/L (3.5-5.1); SODIUM SERUM 138 mmol/L (136-145)
[2020-07-14 12:46] LABS: microscopic required? YES; urine erythrocyte TRACE (NEGATIVE)
[2020-07-14 13:38] LABS: AMPHETAMINE QUAL UR NONE DETECTED (See below)
[2020-07-14 16:33] VITALS: BP 122/62
== END 2020-07-14 16:33 | disposition home or self-care (01) ==
LOC: ED 09:55
PROVIDERS: Emergency Medicine
DX: J44.9 Chronic obstructive pulmonary disease, unspecified (principal); I10 Essential (primary) hypertension; E11.9 Type 2 diabetes mellitus without complications; Z20.828 Contact with and (suspected) exposure to other viral communicable diseases; Z98.890 Other specified postprocedural states; Z88.6 Allergy status to analgesic agent
CPT/HCPCS: 36600; 83880; 85378; 87804; 94150; J2930; U0003